=== PATIENT | male | born 1955 | race American Indian/Alaskan Native ===

== ENCOUNTER 2017-03-09 07:03 | Emergency (ER) | payer MEDICAID ==
[2017-03-09 08:05] LABS: Basophils % (Auto) 0.6 % (0.0-1.8); Hematocrit 33.9 % (35.5-45.6); Hemoglobin 11.3 gm/dl (11.8-15.2); Mean Corpuscular HGB Conc 33 % (32-34); Mean Corpuscular Hemoglobin 30 pg (28-32); Mean Corpuscular Volume 89 fl (84-94); Red Blood Count 3.83 M/mm3 (3.65-5.03); Red Cell Distribution Width 18.5 % (13.2-15.2); White Blood Count 4.8 K/mm3 (4.5-11.0)
[2017-03-09 08:08] LABS: Platelet Count 59 K/mm3 (140-440)
[2017-03-09 08:10] LABS: Alanine Aminotransferase 137 units/L (7-56); Albumin 2.2 g/dL (3.9-5); Albumin/Globulin Ratio 0.7 %; Alkaline Phosphatase 266 units/L (35-129); Anion Gap 15 mmol/L; BUN/Creatinine Ratio 20; Blood Urea Nitrogen 12 mg/dL (9-20); Calcium 7.1 mg/dL (8.4-10.2); Carbon Dioxide 21 mmol/L (22-30); Chloride 105.9 mmol/L (98-107); Glucose 102 mg/dL (75-100); Lipase 48 units/L (13-60); Potassium 3.5 mmol/L (3.6-5.0); Sodium 138 mmol/L (137-145); Total Protein 5.4 g/dL (6.3-8.2)
[2017-03-09 09:08] LABS: Bilirubin,Urine SM (Negative); Blood,Urine NEG (Negative); Ketones,Urine NEG (Negative); Leukocyte Esterase,Urine MOD (Negative); Mucus,Urine 3+ /HPF; Nitrite,Urine NEG (Negative); Protein,Urine <15 mg/dL mg/dL (Negative)
--- NOTE | 2017-03-09 11:12 | Emergency Department Report ---
ED General Adult HPI - General Chief complaint: Abdominal Pain Stated complaint: ABD PAIN Time Seen by Provider: 03/09/17 10:52 Source: patient, RN notes reviewed, old records reviewed Mode of arrival: Ambulatory Limitations: No Limitations - History of Present Illness Initial comments: This is a 61-year-old male who was previously unknown to this provider. Patient endorses a past medical history of liver disease, hepatitis C, polysubstance abuse, alcohol abuse. Patient also known to have esophageal varices. Patient seen in the past by gastroenterology, and patient compliance has been questioned.. Patient presents to the ER complaining of abdominal cramping. The abdominal cramping is diffuse. It does not have exacerbating or relieving factors. Patient does admit to recent cocaine and alcohol use, not today, he is not homicidal and suicidal. He complains of erectile dysfunction, and requests medication to help out with this. There is no headache, neck pain, chest pain, shortness of breath, hematemesis or bright red blood per rectum. Patient indicates symptoms have no exacerbating or relieving factors, he is requesting to eat at this time. -: Gradual Location: abdomen Severity scale (0 -10): 9 Consistency: intermittent Improves with: none Worsens with: none Associated Symptoms: loss of appetite, malaise, weakness. denies: confusion, chest pain, cough - Related Data Previous Rx's Medication Instructions Recorded Last Taken Type Lactulose [Cephulac] 20 gm PO QDAY #30 oral.liqd 03/09/17 Unknown Rx Nadolol [Corgard] 20 mg PO QDAY #30 tablet 03/09/17 Unknown Rx Pantoprazole [Protonix TAB] 40 mg PO DAILY #30 tablet 03/09/17 Unknown Rx chlordiazePOXIDE [Librium] 25 mg PO Q8H #10 capsule 03/09/17 Unknown Rx Allergies Allergy/AdvReac Type Severity Reaction Status Date / Time No Known Allergies Allergy Unverified 10/12/13 16:07 ED Review of Systems ROS: Stated complaint: ABD PAIN Other details as noted in HPI Constitutional: malaise Eyes: denies: eye discharge ENT: denies: epistaxis Respiratory: denies: cough Cardiovascular: denies: chest pain Gastrointestinal: abdominal pain Genitourinary: denies: dysuria Musculoskeletal: arthralgia, myalgia Skin: denies: lesions Neurological: weakness Psychiatric: denies: homicidal thoughts, suicidal thoughts ED Past Medical Hx - Past Medical History Hx Hypertension: Yes Hx Congestive Heart Failure: No Hx Diabetes: No Hx Liver Disease: Yes ("i don't know exactly what") Hx HIV: No - Social History Smoking Status: Never Smoker - Medications Home Medications: Home Medications Medication Instructions Recorded Confirmed Last Taken Type Lactulose [Cephulac] 20 gm PO QDAY #30 oral.liqd 03/09/17 Unknown Rx Nadolol [Corgard] 20 mg PO QDAY #30 tablet 03/09/17 Unknown Rx Pantoprazole [Protonix TAB] 40 mg PO DAILY #30 tablet 03/09/17 Unknown Rx chlordiazePOXIDE [Librium] 25 mg PO Q8H #10 capsule 03/09/17 Unknown Rx ED Physical Exam - General Limitations: No Limitations General appearance: alert, in no apparent distress - Head Head exam: Present: atraumatic, normocephalic - Eye Eye exam: Present: normal appearance, EOMI. Absent: nystagmus - ENT ENT exam: Present: normal exam, normal orophraynx, mucous membranes moist, normal external ear exam - Neck Neck exam: Present: normal inspection, full ROM. Absent: tenderness, meningismus - Respiratory Respiratory exam: Present: normal lung sounds bilaterally. Absent: respiratory distress, wheezes, rales, rhonchi, stridor, chest wall tenderness, accessory muscle use, decreased breath sounds, prolonged expiratory - Cardiovascular Cardiovascular Exam: Present: regular rate, normal rhythm, normal heart sounds. Absent: bradycardia, tachycardia, irregular rhythm, systolic murmur, diastolic murmur, rubs, gallop - GI/Abdominal GI/Abdominal exam: Present: soft, normal bowel sounds, other (ascites is appreciated on physical exam. There is a positive fluid wave. There is no tenderness, rebound or guarding.). Absent: distended, tenderness, guarding, rebound, rigid - Rectal Rectal exam: Present: deferred - Extremities Exam Extremities exam: Present: normal inspection, normal capillary refill, pedal edema. Absent: calf tenderness - Back Exam Back exam: Present: normal inspection, full ROM. Absent: tenderness, CVA tenderness (R), CVA tenderness (L), muscle spasm, paraspinal tenderness, vertebral tenderness - Neurological Exam Neurological exam: Present: alert, oriented X3, normal gait, other (Extraocular movements intact. Tongue midline. No facial droop. Facial sensation intact to light touch in the V1, V2, V3 distribution bilaterally. 5 and 5 strength in 4 extremities.. Sensation is intact to light touch in 4 extremities.). Absent : motor sensory deficit - Psychiatric Psychiatric exam: Present: normal affect, normal mood. Absent: homicidal ideation, suicidal ideation - Skin Skin exam: Present: warm, dry, intact, normal color. Absent: rash ED Course Vital Signs 03/09/17 03/09/17 07:27 13:18 Temperature 98.3 F Pulse Rate 62 58 L Respiratory 18 18 Rate Blood Pressure 133/78 Blood Pressure 133/78 143/73 [Left] O2 Sat by Pulse 96 100 Oximetry ED Medical Decision Making - Lab Data Result diagrams: 03/09/17 07:36 03/09/17 07:36 Vital Signs 03/09/17 07:27 Temperature 98.3 F Pulse Rate 62 Respiratory 18 Rate Blood Pressure 133/78 Blood Pressure 133/78 [Left] O2 Sat by Pulse 96 Oximetry Lab Results 03/09/17 03/09/17 03/09/17 Range/Units 07:36 07:36 07:36 WBC 4.8 (4.5-11.0) K/mm3 RBC 3.83 (3.65-5.03) M/mm3 Hgb 11.3 L (11.8-15.2) gm/dl Hct 33.9 L (35.5-45.6) % MCV 89 (84-94) fl MCH 30 (28-32) pg MCHC 33 (32-34) % RDW 18.5 H (13.2-15.2) % Plt Count 59 L (140-440) K/mm3 Lymph % (Auto) 25.7 (13.4-35.0) % Hickman % (Auto) 13.7 H (0.0-7.3) % Eos % (Auto) 13.0 H (0.0-4.3) % Baso % (Auto) 0.6 (0.0-1.8) % Lymph # 1.2 (1.2-5.4) K/mm3 Hickman # 0.7 (0.0-0.8) K/mm3 Eos # 0.6 H (0.0-0.4) K/mm3 Baso # 0.0 (0.0-0.1) K/mm3 Seg Neutrophils % 47.0 (40.0-70.0) % Seg Neutrophils # 2.3 (1.8-7.7) K/mm3 Sodium 138 (137-145) mmol/L Potassium 3.5 L (3.6-5.0) mmol/L Chloride 105.9 (98-107) mmol/L Carbon Dioxide 21 L (22-30) mmol/L Anion Gap 15 mmol/L BUN 12 (9-20) mg/dL Creatinine 0.6 L (0.8-1.5) mg/dL Estimated GFR > 60 ml/min BUN/Creatinine Ratio 20 % Glucose 102 H (75-100) mg/dL Calcium 7.1 L (8.4-10.2) mg/dL Total Bilirubin 4.20 H (0.1-1.2) mg/dL AST 254 H (5-40) units/L ALT 137 H (7-56) units/L Alkaline Phosphatase 266 H (35-129) units/L Total Creatine Kinase 1634 H (55-170) units/L Total Protein 5.4 L (6.3-8.2) g/dL Albumin 2.2 L (3.9-5) g/dL Albumin/Globulin Ratio 0.7 % Lipase 48 (13-60) units/L Urine Color (Yellow) Urine Turbidity (Clear) Urine pH (5.0-7.0) Ur Specific Wat[place] (1.003-1.030) Urine Protein (Negative) mg/dL Urine Glucose (UA) (Negative) mg/dL Urine Ketones (Negative) mg/dL Urine Blood (Negative) Urine Nitrite (Negative) Urine Bilirubin (Negative) Urine Ictotest (Negative) Urine Urobilinogen (<2.0) mg/dL Ur Leukocyte Esterase (Negative) Urine WBC (Auto) (0.0-6.0) /HPF Urine RBC (Auto) (0.0-6.0) /HPF U Epithel Cells (Auto) (0-13.0) /HPF Urine Mucus /HPF 03/09/17 Range/Units 08:51 WBC (4.5-11.0) K/mm3 RBC (3.65-5.03) M/mm3 Hgb (11.8-15.2) gm/dl Hct (35.5-45.6) % MCV (84-94) fl MCH (28-32) pg MCHC (32-34) % RDW (13.2-15.2) % Plt Count (140-440) K/mm3 Lymph % (Auto) (13.4-35.0) % Hickman % (Auto) (0.0-7.3) % Eos % (Auto) (0.0-4.3) % Baso % (Auto) (0.0-1.8) % Lymph # (1.2-5.4) K/mm3 Hickman # (0.0-0.8) K/mm3 Eos # (0.0-0.4) K/mm3 Baso # (0.0-0.1) K/mm3 Seg Neutrophils % (40.0-70.0) % Seg Neutrophils # (1.8-7.7) K/mm3 Sodium (137-145) mmol/L Potassium (3.6-5.0) mmol/L Chloride (98-107) mmol/L Carbon Dioxide (22-30) mmol/L Anion Gap mmol/L BUN (9-20) mg/dL Creatinine (0.8-1.5) mg/dL Estimated GFR ml/min BUN/Creatinine Ratio % Glucose (75-100) mg/dL Calcium (8.4-10.2) mg/dL Total Bilirubin (0.1-1.2) mg/dL AST (5-40) units/L ALT (7-56) units/L Alkaline Phosphatase (35-129) units/L Total Creatine Kinase (55-170) units/L Total Protein (6.3-8.2) g/dL Albumin (3.9-5) g/dL Albumin/Globulin Ratio % Lipase (13-60) units/L Urine Color Patricia (Yellow) Urine Turbidity Clear (Clear) Urine pH 5.0 (5.0-7.0) Ur Specific [place] 1.024 (1.003-1.030) Urine Protein <15 mg/dl (Negative) mg/dL Urine Glucose (UA) Neg (Negative) mg/dL Urine Ketones Neg (Negative) mg/dL Urine Blood Neg (Negative) Urine Nitrite Neg (Negative) Urine Bilirubin Sm (Negative) Urine Ictotest Negative (Negative) Urine Urobilinogen 4.0 (<2.0) mg/dL Ur Leukocyte Esterase Mod (Negative) Urine WBC (Auto) 41.0 H (0.0-6.0) /HPF Urine RBC (Auto) 6.0 (0.0-6.0) /HPF U Epithel Cells (Auto) 1.0 (0-13.0) /HPF Urine Mucus 3+ /HPF - Radiology Data Radiology results: report reviewed, image reviewed Noncontrast CT scan of the abdomen and pelvis demonstrates ascites. Varices also noted. Trace right-sided pleural effusion is noted, the visualized lung bases are well aerated, impression is cirrhosis, splenomegaly, ascites. No acute inflammatory process is identified. - Medical Decision Making Differential diagnosis: Hepatitis, liver disease, cirrhosis Assessment and plan: 61-year-old gentleman, alert and oriented 3, clinically sober, drinking without difficulty, tolerating liquid feeds, known to be noncompliant with therapy, presenting with the expected natural progression and history of cirrhosis and liver disease. He is afebrile, with reassuring vital signs, return studies are chronically abnormal, creatinine kinase is slightly elevated at 1600, however he is drinking oral fluids, he is not vomiting, and his renal function is within normal limits. Therefore, the patient will be able to self hydrate and should be able to manage this on his own. His compartments are soft, he is not actively withdrawing. Patient has chronic disease and needs to follow up with outpatient primary care and gastroenterology. He will be discharged with prescriptions for lactulose, Corgard Protonix, Librium. He is instructed to discontinue tobacco and cocaine and alcohol consumption, and he needs to follow up as an outpatient. He will be discharged at this time, return precautions are reviewed. The patient is chronically ill, but he does not appear to have an acute decompensation in his chronic medical disease, and there is no objective indication to admit the patient to the hospital at this time. Critical care attestation.: If time is entered above; I have spent that time in minutes in the direct care of this critically ill patient, excluding procedure time. ED Disposition Clinical Impression: Elevated LFTs, Peripheral edema, Cirrhosis Disposition: DC-01 TO HOME OR SELFCARE Is pt being admited?: No Does the pt Need Aspirin: No Condition: Stable Instructions: Cirrhosis (ED) Additional Instructions: Take the medications as directed. Discontinue consumption of alcohol, tobacco, marijuana, cocaine. These substances are bad for the patient's health, and long -term use can result in disability, , paralysis, loss of quality of life. Follow-up within the next month without a gastroenterology or primary care. Dr. Ori Morales is a gastroenterology specialist Dr. Eddie Ndiaye is a local primary care doctor. The [facility] is a local medical clinic, and the [facility] is available for mental health needs. Return to the ER by dilute fevers, chills, chest pain, shortness of breath, intractable nausea or vomiting, confusion, inability to tolerate liquid feeds. Prescriptions: chlordiazePOXIDE [Librium] 25 mg PO Q8H #10 capsule Lactulose [Cephulac] 20 gm PO QDAY #30 oral.liqd Nadolol [Corgard] 20 mg PO QDAY #30 tablet Pantoprazole [Protonix TAB] 40 mg PO DAILY #30 tablet Referrals: PRIMARY CARE, [Primary Care Provider] - 3-5 Days ORI MORALES MD [Staff Physician] - 3-5 Days [facility] [Outside] - 3-5 Days ADRIANNE LARES MD [Staff Physician] - 3-5 Days [facility] [Provider Group] - 3-5 Days
[2017-03-09] MEDS ORDERED: BENTYL ONE (11:30)
[2017-03-09] MEDS: CARAFATE PO ONE (11:30)
[2017-03-09] MEDS: BENTYL PO ONE (11:31)
--- NOTE | 2017-03-09 12:02 | Cat Scan Report ---
CT OF THE ABDOMEN AND PELVIS WITHOUT CONTRAST HISTORY: Abdominal pain. TECHNIQUE: Helical CT without contrast. Sagittal and coronal reformatted images. FINDINGS: There are moderate sclerotic changes in the liver. No obvious mass on noncontrast CT. Splenomegaly measures 17 cm. Varicosities are noted the splenic vein. There is small to medium ascites. The biliary system, pancreas, kidneys, adrenal glands and bowel loops are within normal limits. Normal appendix. The bladder is unremarkable. No evidence for bulky adenopathy, abscess or free air. Trace right pleural effusion is identified. The visualized lung bases are well-aerated. Heart size is normal. IMPRESSION: Cirrhosis, splenomegaly and small to medium ascites. Trace right pleural effusion. No acute inflammatory process is appreciated.
[2017-03-09] MEDS: NACL 0.9% 250ML 250 ML IV ONE (12:42)
[2017-03-09 13:19] VITALS: BP 143/73
== END 2017-03-09 13:18 | disposition home or self-care (01) ==
LOC: ED 07:03
DX: K74.60 Unspecified cirrhosis of liver (principal); R60.9 Edema, unspecified; R94.5 Abnormal results of liver function studies; I10 Essential (primary) hypertension
CPT/HCPCS: 36415; 74176; 80053; 81001; 82550; 83690; 85025; 99284; J7050

== ENCOUNTER 2017-03-12 16:41 | Inpatient (IN) | payer OTHER ==
[2017-03-12 18:20] LABS: Hematocrit 35.8 % (35.5-45.6); Hemoglobin 11.7 gm/dl (11.8-15.2); Mean Corpuscular HGB Conc 33 % (32-34); Mean Corpuscular Hemoglobin 30 pg (28-32); Mean Corpuscular Volume 91 fl (84-94); Red Blood Count 3.95 M/mm3 (3.65-5.03); White Blood Count 3.9 K/mm3 (4.5-11.0)
[2017-03-12 18:36] LABS: Anion Gap 15 mmol/L; BUN/Creatinine Ratio 14; Blood Urea Nitrogen 10 mg/dL (9-20); Calcium 7.7 mg/dL (8.4-10.2); Carbon Dioxide 23 mmol/L (22-30); Chloride 107.1 mmol/L (98-107); Glucose 115 mg/dL (75-100); Sodium 141 mmol/L (137-145)
[2017-03-12 18:45] LABS: INR 1.41 (0.87-1.13)
[2017-03-12 18:46] LABS: Partial Thromboplastin Time 31.5 Sec. (24.2-36.6)
[2017-03-12 18:59] LABS: Blastocytes % (Manual) 0 %
--- NOTE | 2017-03-12 19:01 | Cat Scan Report ---
FINAL REPORT PROCEDURE: CT HEAD/BRAIN WO CON TECHNIQUE: Computerized tomography of the head was performed without contrast material. HISTORY: neuro deficits \T\lt; 6hrs or sx present upon awakening COMPARISON: No prior studies are available for comparison. FINDINGS: No CT evidence of intracranial mass, hemorrhage, acute territorial infarction, or hydrocephalus. Chronic lacunar type infarct is seen in the right basal ganglia. Intracranial arteries are symmetric in density. Calvarium is intact. Visualized paranasal sinuses and mastoids are aerated. IMPRESSION: No CT evidence of acute intracranial abnormality
[2017-03-12 19:04] LABS: Anisocytosis 1+; Poikilocytosis 1+
[2017-03-12 19:05] LABS: Diff Status Complete; Hypochromasia 1+; Platelet Estimate Appears Decreased
[2017-03-12 19:07] LABS: Platelet Count 62 K/mm3 (140-440)
--- NOTE | 2017-03-12 19:59 | Emergency Department Report ---
HPI - General Chief Complaint: Dyspnea/Respdistress Time Seen by Provider: 03/12/17 19:08 - HPI HPI: This is a 61-year-old -[place] Citizen male presents to the emergency department from home with complaints of some altered mental status, swelling to the lower extremities and some shortness of breath. The patient himself does appear slightly confused and has a lag between question and answer and is a poor historian. His daughter says that he started having some tremors earlier in the day. She says that he has a glassy eyed look that is not him. Patient does admit to some cocaine use a few days ago. However he also said that he was a tobacco smoker and his daughter says that he is not. He has a past medical history of hypertension and some type of liver disease that the daughter thinks is liver cirrhosis. There is a listing of the patient being on lactulose. ED Past Medical Hx - Past Medical History Previous Medical History?: Yes Hx Hypertension: Yes Hx Congestive Heart Failure: No Hx Diabetes: No Hx Liver Disease: Yes ("i don't know exactly what") Hx HIV: No - Surgical History Past Surgical History?: No - Social History Smoking Status: Never Smoker Substance Use Type: None - Medications Home Medications: Home Medications Medication Instructions Recorded Confirmed Last Taken Type Lactulose [Cephulac] 20 gm PO QDAY #30 oral.liqd 03/09/17 03/12/17 Unknown Rx Nadolol [Corgard] 20 mg PO QDAY #30 tablet 03/09/17 03/12/17 Unknown Rx Pantoprazole [Protonix TAB] 40 mg PO DAILY #30 tablet 03/09/17 03/12/17 Unknown Rx chlordiazePOXIDE [Librium] 25 mg PO Q8H #10 capsule 03/09/17 03/12/17 Unknown Rx ED Review of Systems ROS: Stated complaint: BOTH LEGS AND FOOT SWOLLEN Other details as noted in HPI Comment: Unobtainable due to pts medical conditions Respiratory: shortness of breath Cardiovascular: edema Neurological: confusion Physical Exam - Physical Exam Vital Signs: Vital Signs 03/12/17 03/12/17 03/12/17 17:36 18:31 18:40 Temperature 98.4 F 98.3 F Pulse Rate 63 59 L Respiratory 18 21 21 Rate Blood Pressure 155/85 Blood Pressure 156/74 [Right] O2 Sat by Pulse 96 100 Oximetry Physical Exam: GENERAL: The patient is ill-appearing and slightly confused. HENT: Normocephalic. Atraumatic. Patient has moist mucous membranes. EYES: Extraocular motions are intact. Pupils equal reactive to light bilaterally. NECK: Supple. Trachea is midline. CHEST/LUNGS: Clear to auscultation. There is no respiratory distress noted. HEART/CARDIOVASCULAR: Regular. There is no tachycardia. There is no gallop rub or murmur. ABDOMEN: Abdomen is soft, nontender. Patient has normal bowel sounds. There is no abdominal distention. SKIN: Skin is warm and dry. NEURO: The patient is awake but slightly confused. AAO [address] but not time. He does know the president. Follows most commands. There is a significant lag between question and answer. He has some bilateral upper extremity tremor with intention. MUSCULOSKELETAL: There is no tenderness or deformity. There is no evidence of acute injury. ED Course Vital Signs 03/12/17 03/12/17 03/12/17 17:36 18:31 18:40 Temperature 98.4 F 98.3 F Pulse Rate 63 59 L Respiratory 18 21 21 Rate Blood Pressure 155/85 Blood Pressure 156/74 [Right] O2 Sat by Pulse 96 100 Oximetry ED Medical Decision Making - Lab Data Result diagrams: 03/12/17 18:02 03/12/17 18:02 - EKG Data -: EKG Interpreted by Me EKG shows normal: sinus rhythm, axis, intervals, QRS complexes, ST-T waves Rate: normal - EKG Data When compared to previous EKG there are: previous EKG unavailable Interpretation: normal EKG - Radiology Data Radiology results: report reviewed, image reviewed interpreted by me: Chest x-ray does not show any acute process. There are no pleural effusions, obvious pneumonia and there is no pneumothorax. PROCEDURE: CT HEAD/BRAIN WO CON TECHNIQUE: Computerized tomography of the head was performed without contrast material. HISTORY: neuro deficits T lt; 6hrs or sx present upon awakening COMPARISON: No prior studies are available for comparison. FINDINGS: No CT evidence of intracranial mass, hemorrhage, acute territorial infarction, or hydrocephalus. Chronic lacunar type infarct is seen in the right basal ganglia. Intracranial arteries are symmetric in density. Calvarium is intact. Visualized paranasal sinuses and mastoids are aerated. IMPRESSION: No CT evidence of acute intracranial abnormality Transcribed By: [facility] Dictated By: JOANNA RAY M.D. Electronically Authenticated By: JOANNA RAY M.D. Signed Date/Time: 03/12/17 7760 - Medical Decision Making 61-year-old male presents with his daughter with a complaint of some altered mental status, a tremor, appearing confused. He has a history of liver cirrhosis and is on lactulose so a ammonia level was checked and came back at 144. All this appears consistent with hepatic encephalopathy. CT did not show any acute intracranial abnormalities. Vital signs stable throughout his ED course. We started him on lactulose which she will need multiple times and possibly in larger doses. He has been accepted for admission by the hospitalist , Dr. Hernández. - Differential Diagnosis hepatic encephalopathy, TIA, CVA, dementia Critical Care Time: No Critical care attestation.: If time is entered above; I have spent that time in minutes in the direct care of this critically ill patient, excluding procedure time. ED Disposition Clinical Impression: Hepatic encephalopathy, Hyperammonemia Altered mental status Qualifiers: Altered mental status type: unspecified Qualified Code(s): R41.82 - Altered mental status, unspecified Disposition: DC-09 OP ADMIT IP TO THIS HOSP Is pt being admited?: Yes Condition: Fair Referrals: PRIMARY CARE, [Primary Care Provider] - 3-5 Days Time of Disposition: 22:11
[2017-03-12] MEDS ORDERED: CEPHULAC PO ONE (21:13)
[2017-03-12] MEDS ORDERED: ZOFRAN IV PRN (22:43)
[2017-03-12] MEDS ORDERED: CEPHULAC ONE (23:20)
[2017-03-13] MEDS: LIBRIUM PO SCH ×3 (00:03→16:47)
[2017-03-13 05:12] LABS: Hematocrit 30.6 % (35.5-45.6); Hemoglobin 10.5 gm/dl (11.8-15.2); Mean Corpuscular HGB Conc 35 % (32-34); Mean Corpuscular Hemoglobin 31 pg (28-32); Mean Corpuscular Volume 89 fl (84-94); Red Blood Count 3.45 M/mm3 (3.65-5.03); Red Cell Distribution Width 19.8 % (13.2-15.2)
[2017-03-13 05:17] LABS: Platelet Count 49 K/mm3 (140-440)
[2017-03-13 05:37] LABS: Albumin 1.8 g/dL (3.9-5); Albumin/Globulin Ratio 0.6 %; Bilirubin,Direct 3.1 mg/dL (0-0.2); Bilirubin,Indirect 1.9 mg/dL; Total Protein 4.6 g/dL (6.3-8.2)
--- NOTE | 2017-03-13 07:59 | XRay Report ---
AP CHEST: HISTORY: Shortness of breath No comparison. Mild pulmonary venous congestion is suspected. The lungs are clear. No pleural effusion or pneumothorax. Heart size is at the upper limits of normal. The bony structures are intact. IMPRESSION: Mild pulmonary venous congestion.
[2017-03-13] MEDS: CEPHULAC PO SCH ×4 (08:30→23:09)
[2017-03-13] MEDS: CORGARD PO SCH (09:46)
[2017-03-13] MEDS: LASIX IV SCH (09:46)
[2017-03-13] MEDS: PROTONIX PO SCH (09:47)
[2017-03-13] MEDS ORDERED: HEPARIN SUB-Q SCH (10:00)
--- NOTE | 2017-03-13 10:18 | History and Physical Report ---
CHIEF COMPLAINT: Change in mental status. Other complaints include generalized swelling of the body. HISTORY OF PRESENT ILLNESS: The patient is a 61-year-old male, who was thought to have some form of liver disease presenting with change in mental status. Family member stated that the patient has been in and out of [facility] and presented with this change in mental status that started within the last 24-48 hours. The patient is a poor historian. Also, the patient was noted to be having ____ yesterday. The patient admitted to drinking alcohol regularly and has thoughts of using cocaine. The patient denies history of chest pain but has a history of difficulty breathing, no history of fever or chills. No history of cough. No history of vomiting. PAST MEDICAL HISTORY: Pertinent for hypertension, liver disease that is ____ PAST SURGICAL HISTORY: Unremarkable. FAMILY HISTORY: Noncontributory. SOCIAL HISTORY: The patient drinks alcohol, uses illicit drugs, but does not smoke cigarettes. MEDICATIONS: The patient is on lactulose 20 grams daily, nadolol (Corgard) 20 mg by mouth daily, pantoprazole (Protonix) 40 mg by mouth daily, Librium (chlordiazepoxide) 25 mg by mouth every 8 hours. ALLERGIES: There are no known drug allergies. REVIEW OF SYSTEMS: CONSTITUTIONAL: There is no fever, no chills, no diaphoresis. HEENT: There is no headache or sore throat. CARDIOVASCULAR: There is no chest pain or orthopnea. RESPIRATORY SYSTEM: There is shortness of breath, but no cough. GASTROINTESTINAL SYSTEM: There is no nausea, no vomiting and no abdominal pain, diarrhea or constipation. NEUROLOGICAL SYSTEM: Change in mental status noted, with no dizziness. MUSCULOSKELETAL: Generalized swelling of the body noted including the joint with ____ joint pain. DERMATOLOGICAL SYSTEM: There is no skin rash or itching. GENITOURINARY SYSTEM: There is no dysuria, hematuria, or flank pain. Rest of system review is normal. PHYSICAL EXAMINATION: GENERAL: At the time of exam, the patient was found to be alert and oriented to person, place and not in acute distress. VITAL SIGNS: Shows temperature of 95.5 degrees Fahrenheit, pulse rate of 56, respirations 18, blood pressure 131/83, and O2 sat of 100% on room air. HEENT: Showed pupils to be equal, round, reactive to light and accommodation. Extraocular muscles are intact. NECK: Supple with no JVD or carotid bruit. CARDIOVASCULAR: Showed normal first and second heart sounds with no gallops or murmur. RESPIRATORY: Show good air entry on both sides of the lung with no abnormal breath sounds. GASTROINTESTINAL SYSTEM: Show abdomen to be full, soft, nontender with no organomegaly or rigidity. NEUROLOGICAL: Shows the patient to be lethargic, but able to communicate with no focal deficit elicited. MUSCULOSKELETAL: Showed generalized swelling of the upper and lower limbs, more in the lower limbs than upper limbs, there is no joint tenderness. DERMATOLOGICAL SYSTEM: Show no skin rash. GENITOURINARY: Show no costovertebral angle tenderness. PERTINENT LABORATORY DATA AND IMAGING STUDIES: The patient had a CT of the head done that shows no evidence of intracranial abnormality. The patient also had chest x-ray done that shows no acute cardiopulmonary lesion. Lab results show CBC with slightly low WBC of 3.9 and a slightly low hemoglobin of 11.7, normal hematocrit and low platelet count of 62,000. CBC differential showed elevated monocyte count of 11% and elevated eosinophil count of 12%. Also, the patient's coagulation study shows slight increase in INR of 1.4 with elevated PT of 18. Chemistry shows high chloride of 107 with normal sodium and normal potassium and elevated glucose level of 126. The patient's ammonia levels showed initial high value of 142. Repeat ammonia levels shows even higher level of 274. Troponin level was less than 0.010. The patient's brain natriuretic peptide came back with a normal value of 163.7. TSH level was unremarkable. Plasma alcohol level was unremarkable. DIAGNOSES: 1. Hepatic encephalopathy. 2. Elevated ammonia level. 3. Thrombocytopenia. PLAN: The patient will be admitted to medical floor on telemetry and will have complete echo done this morning because of generalized swelling including peripheral edema. The patient will be on IV Lasix 40 mg daily. DVT prophylaxis will be with sequential compressive device. The patient will have GI consult with Dr. Myron Rivas of the [facility] because of the elevated ammonia level with suspicious liver disease or liver cirrhosis. The patient will have liver function test done this month and will be on lactulose 20 grams 3 times daily. The patient will also be on IV Zofran 4 mg every 8 hours for nausea and vomiting, and Protonix 40 mg by mouth daily. The patient will be on oxygen by nasal cannula 2 liters per minute. The patient will have CBC done this morning and will have his home medication reconciled on Friday. JOB# [id number] OCN/NTS
--- NOTE | 2017-03-13 12:36 | Gastroenterology Consultation ---
History of Present Illness - Reason for Consult Consult date: 03/13/17 AMS, cirrhosis Requesting physician: SY RAYO - History of Present Illness Mr Howard is a 61 yo AAM who presented to the ED with LE edema, sob, and changes in mental status. History primarily gathered from chart review. Patient somnolent on exam; arousable, but unable to provide meaningful history at time of exam. He does admit to drinking alcohol, but unable to get specifics on amount/type of alcohol consumption. He is not aware of any known h /o liver disease/cirrhosis. + cocaine use days prior to admission. No reported GI bleeding. Of note, pt was admitted in 2013 with AMS. GI was consulted at that time, diagnosed with hep c and suspected cirrhosis. However, he has not followed-up since that time. Past History Past Medical History: hypertension, liver disease, other (hep c) Past Surgical History: No surgical history Social history: alcohol abuse, other (+ cocaine) Family history: other (unable to obtain) Medications and Allergies Allergies Allergy/AdvReac Type Severity Reaction Status Date / Time No Known Allergies Allergy Unverified 10/12/13 16:07 Home Medications Medication Instructions Recorded Confirmed Last Taken Type Lactulose [Cephulac] 20 gm PO QDAY #30 oral.liqd 03/09/17 03/12/17 Unknown Rx Nadolol [Corgard] 20 mg PO QDAY #30 tablet 03/09/17 03/12/17 Unknown Rx Pantoprazole [Protonix TAB] 40 mg PO DAILY #30 tablet 03/09/17 03/12/17 Unknown Rx chlordiazePOXIDE [Librium] 25 mg PO Q8H #10 capsule 03/09/17 03/12/17 Unknown Rx Active Meds: Active Medications Chlordiazepoxide HCl (Librium) 25 mg PO Q8H [facility] Last Admin: 03/13/17 08:30 Dose: 25 mg Furosemide (Lasix) 40 mg IV DAILY [facility] Last Admin: 03/13/17 09:46 Dose: Not Given Lactulose (Cephulac) 20 gm PO TID [facility] Last Admin: 03/13/17 08:30 Dose: 20 gm Nadolol (Corgard) 20 mg PO QDAY [facility] Last Admin: 03/13/17 09:46 Dose: Not Given Ondansetron HCl (Zofran) 4 mg IV Q8H PRN PRN Reason: Nausea And Vomiting Pantoprazole Sodium (Protonix) 40 mg PO DAILY [facility] Last Admin: 03/13/17 09:47 Dose: 40 mg Review of Systems - Review of Systems ROS unobtainable: due to mental status Exam - Exam Narrative Exam: Gen: NAD, somnolent/arousable but confused Head: nc/at Mouth: dry mucous membranes, no oral lesions Eyes: + icterus/muddy sclera Neck: no LAD, supple CV: RRR Lungs: CTAB, non labored Abd: soft, nd, +bs Ext: + edema Neuro: oriented to self - Constitutional Vital Signs: Temp Pulse Resp BP Pulse Ox 97.5 F L 60 18 105/49 95 03/13/17 00:21 03/13/17 05:20 03/13/17 05:20 03/13/17 05:20 03/13/17 05:20 - Labs CBC & Chem 7: 03/13/17 04:59 03/12/17 18:02 Lab Results: Laboratory Results - last 24 hr 03/13/17 03/13/17 03/13/17 04:59 04:59 04:59 WBC 3.0 L RBC 3.45 L Hgb 10.5 L Hct 30.6 L MCV 89 MCH 31 MCHC 35 H RDW 19.8 H Plt Count 49 L Total Bilirubin 5.00 H Direct Bilirubin 3.1 H Indirect Bilirubin 1.9 AST 141 H ALT 95 H Alkaline Phosphatase 218 H Ammonia 274.0 H Total Protein 4.6 L Albumin 1.8 L Albumin/Globulin Ratio 0.6 - Imaging CT Scan: report reviewed Assessment and Plan 1. Decompensated cirrhosis 2. Hepatic encephalopathy 3. Ascites 4. Alcohol abuse 5. hepatitis c -increase scheduled lactulose dosing with goal of 3 bm's daily -start xifaxin -r/o infection per primary, obtain diagnostic tap to r/o SBP -monitor/tx for alcohol withdrawal -avoid sedating medications
--- NOTE | 2017-03-13 18:22 | Progress Note ---
Assessment and Plan - Patient Problems (1) Hepatic encephalopathy Current Visit: Yes Status: Acute Plan to address problem: Ammonia level going up Xifaxan added GI consult appreciated Cont Lactulose Recheck Ammonia level (2) Hyperammonemia Current Visit: Yes Status: Acute Plan to address problem: On Xifaxan and Lactulose (3) Elevated LFTs Current Visit: No Status: Acute Plan to address problem: Sec to ETOH Hepatitis profile ordered (4) Severe malnutrition Current Visit: Yes Status: Acute Plan to address problem: Dietitian consult requested (5) EtOH dependence Current Visit: Yes Status: Chronic Qualifiers: Substance use status: uncomplicated Complication of substance-induced condition: C Qualified Code(s): F10.20 - Alcohol dependence, uncomplicated Plan to address problem: CIWA protocol if necessary (6) DVT prophylaxis Current Visit: Yes Status: Acute Plan to address problem: SCD's Subjective Date of service: 03/13/17 Principal diagnosis: Hep Encephalopathy Interval history: Lethargic Arousable Objective - Constitutional Vitals: Vital Signs - 12hr 03/13/17 11:00 Pulse Rate 60 General appearance: Present: no acute distress, well-nourished - EENT Eyes: PERRL, EOM intact ENT: hearing intact, clear oral mucosa Ears: bilateral: normal - Neck Neck: supple, normal ROM - Respiratory Respiratory effort: normal Respiratory: bilateral: CTA - Breasts Breasts: normal - Cardiovascular Heart rate: 80 Rhythm: regular Heart Sounds: Present: S1 & S2. Absent: gallop, rub Extremities: pulses intact, No edema, normal color, Full ROM - Gastrointestinal General gastrointestinal: Present: soft, non-tender, non-distended, normal bowel sounds Rectal Exam: deferred - Genitourinary Male genitourinary: normal - Integumentary Integumentary: clear, warm, dry - Musculoskeletal Musculoskeletal: strength equal bilaterally, generalized weakness - Neurologic Neurologic: moves all extremities - Psychiatric Psychiatric: depressed, other (Alert but notyt oriented,Lethargic) - Allied health notes Allied health notes reviewed: nursing, case management - Labs CBC & Chem 7: 03/13/17 04:59 03/12/17 18:02 Labs: Abnormal lab results 03/13/17 03/13/17 03/13/17 Range/Units 04:59 04:59 04:59 WBC 3.0 L (4.5-11.0) K/mm3 RBC 3.45 L (3.65-5.03) M/mm3 Hgb 10.5 L (11.8-15.2) gm/dl Hct 30.6 L (35.5-45.6) % MCHC 35 H (32-34) % RDW 19.8 H (13.2-15.2) % Plt Count 49 L (140-440) K/mm3 Total Bilirubin 5.00 H (0.1-1.2) mg/dL Direct Bilirubin 3.1 H (0-0.2) mg/dL AST 141 H (5-40) units/L ALT 95 H (7-56) units/L Alkaline Phosphatase 218 H (35-129) units/L Ammonia 274.0 H (25-60) umol/L Total Protein 4.6 L (6.3-8.2) g/dL Albumin 1.8 L (3.9-5) g/dL
[2017-03-13] MEDS: XIFAXAN PO SCH (23:09)
[2017-03-14] MEDS: LIBRIUM PO SCH ×3 (04:44→17:36)
[2017-03-14] MEDS: CEPHULAC PO SCH ×4 (06:41→23:38)
[2017-03-14 09:29] LABS: Alanine Aminotransferase 85 units/L (7-56); Albumin 1.8 g/dL (3.9-5); Albumin/Globulin Ratio 0.6 %; Alkaline Phosphatase 198 units/L (35-129); Anion Gap 14 mmol/L; BUN/Creatinine Ratio 22; Blood Urea Nitrogen 13 mg/dL (9-20); Calcium 7.3 mg/dL (8.4-10.2); Carbon Dioxide 23 mmol/L (22-30); Chloride 109.3 mmol/L (98-107); Glucose 99 mg/dL (75-100); Potassium 3.8 mmol/L (3.6-5.0); Sodium 142 mmol/L (137-145); Total Protein 4.7 g/dL (6.3-8.2)
[2017-03-14] MEDS: PROTONIX PO SCH (10:01)
[2017-03-14] MEDS: XIFAXAN PO SCH ×2 (10:01→23:38)
[2017-03-14] MEDS: CORGARD PO SCH (10:02)
[2017-03-14] MEDS: LASIX IV SCH (10:02)
--- NOTE | 2017-03-14 10:30 | Gastroenterology Progress Note ---
<HILTON DELA CRUZ - Last Filed: 03/14/17 10:28> Assessment and Plan 1. Decompensated cirrhosis 2. Hepatic encephalopathy 3. Ascites 4. Alcohol abuse 5. hepatitis c -increase scheduled lactulose dosing with goal of 3 bm's daily -started on Xifaxan. Ammonia level decreased to 89. -r/o infection per primary, obtain diagnostic tap to r/o SBP>>>pending for today with fluid studies. -monitor/tx for alcohol withdrawal -avoid sedating medications -Currently on Lasix 40 mg daily. Significant lower ext edema, Will defer to primary for increasing diuretics vs addition of aldactone. Subjective Date of service: 03/21/17 Principal diagnosis: Hep Encephalopathy Interval history: Family at bedside. Patient is awake with limited conversation. Objective - Constitutional Vitals: Temp Pulse Resp BP Pulse Ox 98.3 F 62 18 134/70 99 03/14/17 05:18 03/14/17 05:18 03/14/17 05:18 03/14/17 05:18 03/14/17 05:18 General appearance: no acute distress - EENT ENT: hearing intact - Respiratory Respiratory: bilateral: diminished - Cardiovascular Rhythm: regular Heart Sounds: Present: S1 & S2 - Extremities Extremity abnormal: edema - Gastrointestinal General gastrointestinal: Present: soft, non-tender, normal bowel sounds - Labs CBC & Chem 7: 03/13/17 04:59 03/14/17 08:50 Labs: Laboratory Results - last 24 hr 03/14/17 03/14/17 03/14/17 08:50 08:50 08:50 Sodium 142 Potassium 3.8 Chloride 109.3 H Carbon Dioxide 23 Anion Gap 14 BUN 13 Creatinine 0.6 L Estimated GFR > 60 BUN/Creatinine Ratio 22 Glucose 99 Calcium 7.3 L Magnesium 1.70 Total Bilirubin 4.40 H AST 131 H ALT 85 H Alkaline Phosphatase 198 H Ammonia 89.0 H Total Protein 4.7 L Albumin 1.8 L Albumin/Globulin Ratio 0.6 <FRANKIE CHAPA - Last Filed: 03/14/17 16:36> Assessment and Plan Patient seen and examined. Agree with note by Yohana Dela Cruz. Mentation improved, but still confused and not back to baseline (daughter at bedside). Only 1 bm last night, none since. increase lactulose scheduled dosing. rest as above. Objective - Constitutional Vitals: Temp Pulse Resp BP Pulse Ox 98.3 F 63 18 134/70 98 03/14/17 05:18 03/14/17 10:18 03/14/17 05:18 03/14/17 05:18 03/14/17 13:06 - Labs CBC & Chem 7: 03/13/17 04:59 03/14/17 08:50 Labs: Laboratory Results - last 24 hr 03/14/17 03/14/17 03/14/17 08:50 08:50 08:50 Sodium 142 Potassium 3.8 Chloride 109.3 H Carbon Dioxide 23 Anion Gap 14 BUN 13 Creatinine 0.6 L Estimated GFR > 60 BUN/Creatinine Ratio 22 Glucose 99 Calcium 7.3 L Magnesium Total Bilirubin 4.40 H AST 131 H ALT 85 H Alkaline Phosphatase 198 H Ammonia 89.0 H Total Protein 4.7 L Albumin 1.8 L Albumin/Globulin Ratio 0.6 Hepatitis A IgM Ab Non-reactive Hep Bs Antigen Non-reactive Hep B Core IgM Ab Non-reactive Hepatitis C Antibody Reactive A 03/14/17 08:50 Sodium Potassium Chloride Carbon Dioxide Anion Gap BUN Creatinine Estimated GFR BUN/Creatinine Ratio Glucose Calcium Magnesium 1.70 Total Bilirubin AST ALT Alkaline Phosphatase Ammonia Total Protein Albumin Albumin/Globulin Ratio Hepatitis A IgM Ab Hep Bs Antigen Hep B Core IgM Ab Hepatitis C Antibody
--- NOTE | 2017-03-14 14:36 | Ultrasound Report ---
ULTRASOUND ABDOMEN LIMITED/ASCITES SCAN INDICATION: Diagnostic tap. Evaluate for SBP. COMPARISON: 03/09/2017 CT. FINDINGS: Sonographic imaging of all 4 abdominal quadrants demonstrates no significant ascites that may be amenable for safe paracentesis. CONCLUSION: No significant ascites identified, as described. Thank you for the opportunity to participate in this patient's care.
[2017-03-14] MEDS: ALDACTONE PO SCH (17:35)
--- NOTE | 2017-03-14 20:13 | Progress Note ---
Assessment and Plan Assessment and plan: 1. Decompensated cirrhosis Secondary to hepatitis C and alcohol abuse Plan for diagnostic/therapeutic paracentesis; adjust diuretic regimen; beta elizabeth; lactulose 2. Hepatic encephalopathy On lactulose and rifaximin Trend ammonia level - started to come down, 89 today 3. Ascites/anasarca Obtain US and paracentesis ECHO revealed preserved EF, so peripheral edema/anasarca secondary to hyperalbuminemia Started on Lasix; add spironolactone 4. Chronic hepatitis C 5. Alcohol abuse [facility] protocol Banana bag 6. Recent history of cocaine use Counseled, but questionable comprehension; discussed with daughter 7. Pancytopenia Due to decompensated cirrhosis/alcoholic and drug use Monitor closely Consider transfusion if necessary 8. Coagulopathy Due to decompensated cirrhosis Monitor INR Treat if needed 9. Jaundice/elevated LFTs Due to decompensated cirrhosis and continued alcohol use 10. Severe protein caloric malnutrition Due to nutritional deficiencies (in and out of [facility]), alcohol and drug use Dietitian consulted for supplementation 11. DVT prophylaxis SCDs. No pharmacological agent given pancytopenia/coagulopathy 12. Dispo Daughter would like placement; if not possible, home health and she will need to make arrangements to take patient at her home; patient released from [facility] 2[facility] 3 weeks ago, since then leaving with his brother who brings him alcohol and drugs History Interval history: Mental status improved, able to answer simple questions; no specific complaints Long discussion with daughter about all his comorbidities, current findings, treatment plan Hospitalist Physical - Constitutional Vitals: Temp Pulse Resp BP Pulse Ox 98.3 F 64 18 134/70 99 03/14/17 05:18 03/14/17 17:46 03/14/17 05:18 03/14/17 05:18 03/14/17 17:46 General appearance: Present: no acute distress - EENT Eyes: Present: PERRL, EOM intact. Absent: scleral icterus, conjunctival injection ENT: hearing intact, clear oral mucosa, poor dentition, no oropharyngeal erythema - Neck Neck: Present: supple, normal ROM. Absent: masses or JVD - Respiratory Respiratory effort: normal Respiratory: bilateral: CTA, negative: rhonchi, wheezing - Cardiovascular Rhythm: regular Heart Sounds: Present: S1 & S2. Absent: systolic murmur - Extremities Extremities: no ischemia Extremity abnormal: edema - Abdominal General gastrointestinal: soft, non-tender, non-distended, normal bowel sounds - Neurologic Neurologic: moves all extremities Results - Labs CBC & Chem 7: 03/13/17 04:59 03/14/17 08:50 Labs: Laboratory Last Values WBC 3.0 K/mm3 (4.5-11.0) L 03/13/17 04:59 RBC 3.45 M/mm3 (3.65-5.03) L 03/13/17 04:59 Hgb 10.5 gm/dl (11.8-15.2) L 03/13/17 04:59 Hct 30.6 % (35.5-45.6) L 03/13/17 04:59 MCV 89 fl (84-94) 03/13/17 04:59 MCH 31 pg (28-32) 03/13/17 04:59 MCHC 35 % (32-34) H 03/13/17 04:59 RDW 19.8 % (13.2-15.2) H 03/13/17 04:59 Plt Count 49 K/mm3 (140-440) L 03/13/17 04:59 Douglas % (Auto) Senior Interactive Producer 03/12/17 18:02 Add Manual Diff Complete 03/12/17 18:02 Total Counted 100 03/12/17 18:02 Seg Neuts % (Manual) 49.0 % (40.0-70.0) 03/12/17 18:02 Band Neutrophils % 0 % 03/12/17 18:02 Lymphocytes % (Manual) 27.0 % (13.4-35.0) 03/12/17 18:02 Reactive Lymphs % (Man) 0 % 03/12/17 18:02 Monocytes % (Manual) 11.0 % (0.0-7.3) H 03/12/17 18:02 Eosinophils % (Manual) 12.0 % (0.0-4.3) H 03/12/17 18:02 Basophils % (Manual) 1.0 % (0.0-1.8) 03/12/17 18:02 Metamyelocytes % 0 % 03/12/17 18:02 Myelocytes % 0 % 03/12/17 18:02 Promyelocytes % 0 % 03/12/17 18:02 Blast Cells % 0 % 03/12/17 18:02 Nucleated RBC % Not Reportable 03/12/17 18:02 Seg Neutrophils # Man 1.9 K/mm3 (1.8-7.7) 03/12/17 18:02 Band Neutrophils # 0.0 K/mm3 03/12/17 18:02 Lymphocytes # (Manual) 1.1 K/mm3 (1.2-5.4) L 03/12/17 18:02 Abs React Lymphs (Man) 0.0 K/mm3 03/12/17 18:02 Monocytes # (Manual) 0.4 K/mm3 (0.0-0.8) 03/12/17 18:02 Eosinophils # (Manual) 0.5 K/mm3 (0.0-0.4) H 03/12/17 18:02 Basophils # (Manual) 0.0 K/mm3 (0.0-0.1) 03/12/17 18:02 Metamyelocytes # 0.0 K/mm3 03/12/17 18:02 Myelocytes # 0.0 K/mm3 03/12/17 18:02 Promyelocytes # 0.0 K/mm3 03/12/17 18:02 Blast Cells # 0.0 K/mm3 03/12/17 18:02 WBC Morphology Not Reportable 03/12/17 18:02 Hypersegmented Neuts Not Reportable 03/12/17 18:02 Hyposegmented Neuts Not Reportable 03/12/17 18:02 Hypogranular Neuts Not Reportable 03/12/17 18:02 Smudge Cells Not Reportable 03/12/17 18:02 Toxic Granulation Not Reportable 03/12/17 18:02 Toxic Vacuolation Not Reportable 03/12/17 18:02 Dohle Bodies Not Reportable 03/12/17 18:02 Pelger-Huet Anomaly Not Reportable 03/12/17 18:02 Joe Rods Not Reportable 03/12/17 18:02 Platelet Estimate Appears decreased 03/12/17 18:02 Clumped Platelets Not Reportable 03/12/17 18:02 Plt Clumps, EDTA Not Reportable 03/12/17 18:02 Large Platelets Not Reportable 03/12/17 18:02 Giant Platelets Not Reportable 03/12/17 18:02 Platelet Satelliting Not Reportable 03/12/17 18:02 Plt Morphology Comment Not Reportable 03/12/17 18:02 RBC Morphology Not Reportable 03/12/17 18:02 Dimorphic RBCs Not Reportable 03/12/17 18:02 Polychromasia Not Reportable 03/12/17 18:02 Hypochromasia 1+ 03/12/17 18:02 Poikilocytosis 1+ 03/12/17 18:02 Anisocytosis 1+ 03/12/17 18:02 Microcytosis Not Reportable 03/12/17 18:02 Macrocytosis Not Reportable 03/12/17 18:02 Spherocytes Not Reportable 03/12/17 18:02 Pappenheimer Bodies Not Reportable 03/12/17 18:02 Sickle Cells Not Reportable 03/12/17 18:02 Target Cells Not Reportable 03/12/17 18:02 Tear Drop Cells Not Reportable 03/12/17 18:02 Ovalocytes Not Reportable 03/12/17 18:02 Helmet Cells Not Reportable 03/12/17 18:02 Car[place]quillo-[place] Bodies Not Reportable 03/12/17 18:02 Banks Rings Not Reportable 03/12/17 18:02 Oliver Cells Not Reportable 03/12/17 18:02 Bite Cells Not Reportable 03/12/17 18:02 Crenated Cell Not Reportable 03/12/17 18:02 Elliptocytes Not Reportable 03/12/17 18:02 Acanthocytes (Spur) Not Reportable 03/12/17 18:02 Rouleaux Not Reportable 03/12/17 18:02 Hemoglobin C Crystals Not Reportable 03/12/17 18:02 Schistocytes Not Reportable 03/12/17 18:02 Malaria parasites Not Reportable 03/12/17 18:02 Alex Bodies Not Reportable 03/12/17 18:02 Hem Pathologist Commnt No 03/12/17 18:02 PT 18.0 Sec. (12.2-14.9) H 03/12/17 18:25 INR 1.41 (0.87-1.13) H 03/12/17 18:25 APTT 31.5 Sec. (24.2-36.6) 03/12/17 18:25 Thrombin Time 18.7 Sec. (15.1-19.6) 03/12/17 18:25 Sodium 142 mmol/L (137-145) 03/14/17 08:50 Potassium 3.8 mmol/L (3.6-5.0) 03/14/17 08:50 Chloride 109.3 mmol/L (98-107) H 03/14/17 08:50 Carbon Dioxide 23 mmol/L (22-30) 03/14/17 08:50 Anion Gap 14 mmol/L 03/14/17 08:50 BUN 13 mg/dL (9-20) 03/14/17 08:50 Creatinine 0.6 mg/dL (0.8-1.5) L 03/14/17 08:50 Estimated GFR > 60 ml/min 03/14/17 08:50 BUN/Creatinine Ratio 22 % 03/14/17 08:50 Glucose 99 mg/dL (75-100) 03/14/17 08:50 POC Glucose 126 (70-105) H 03/12/17 18:41 Calcium 7.3 mg/dL (8.4-10.2) L 03/14/17 08:50 Magnesium 1.70 mg/dL (1.7-2.3) 03/14/17 08:50 Total Bilirubin 4.40 mg/dL (0.1-1.2) H 03/14/17 08:50 Direct Bilirubin 3.1 mg/dL (0-0.2) H 03/13/17 04:59 Indirect Bilirubin 1.9 mg/dL 03/13/17 04:59 AST 131 units/L (5-40) H 03/14/17 08:50 ALT 85 units/L (7-56) H 03/14/17 08:50 Alkaline Phosphatase 198 units/L (35-129) H 03/14/17 08:50 Ammonia 89.0 umol/L (25-60) H 03/14/17 08:50 Troponin T < 0.010 ng/mL (0.00-0.029) 03/12/17 18:02 NT-Pro-B Natriuret Pep 163.7 pg/mL (0-900) 03/12/17 18:02 Total Protein 4.7 g/dL (6.3-8.2) L 03/14/17 08:50 Albumin 1.8 g/dL (3.9-5) L 03/14/17 08:50 Albumin/Globulin Ratio 0.6 % 03/14/17 08:50 TSH 3.260 mlU/mL (0.270-4.200) 03/12/17 20:10 Plasma/Serum Alcohol < 0.01 gm% (0-0.07) 03/12/17 20:10 Hepatitis A IgM Ab Non-reactive (NonReactive) 03/14/17 08:50 Hep Bs Antigen Non-reactive (Negative) 03/14/17 08:50 Hep B Core IgM Ab Non-reactive (NonReactive) 03/14/17 08:50 Hepatitis C Antibody Reactive (NonReactive) A 03/14/17 08:50 - Imaging and Cardiology Chest x-ray: image reviewed Abdominal x-ray: image reviewed Imaging and Cardiology: ECHO
[2017-03-15] MEDS: LIBRIUM PO SCH ×4 (01:11→23:46)
[2017-03-15] MEDS: CEPHULAC PO SCH ×4 (06:01→23:46)
[2017-03-15] MEDS: PROTONIX PO SCH (10:00)
[2017-03-15] MEDS: CORGARD PO SCH (10:01)
[2017-03-15] MEDS: XIFAXAN PO SCH ×2 (10:02→22:43)
[2017-03-15] MEDS: LASIX IV SCH (10:04)
[2017-03-15] MEDS: ALDACTONE PO SCH (10:15)
--- NOTE | 2017-03-15 18:49 | Gastroenterology Progress Note ---
Assessment and Plan GI: cirrhosis with encephalopathy now improving - continue Lactulose and Xifaxan bid , follow labs - low protein diet - fi stable am ok to d/c from GI standpoint Subjective Date of service: 03/15/17 Principal diagnosis: Hep Encephalopathy Interval history: - pt more alert today, denies other GI symptoms Objective - Constitutional Vitals: Temp Pulse Resp BP Pulse Ox 98.3 F 65 16 122/69 98 03/15/17 09:00 03/15/17 17:09 03/15/17 04:37 03/15/17 18:00 03/15/17 17:09 General appearance: no acute distress - Respiratory Respiratory: bilateral: CTA - Cardiovascular Rhythm: regular Heart Sounds: Present: S1 & S2 - Gastrointestinal General gastrointestinal: Present: soft, non-tender - Labs CBC & Chem 7: 03/13/17 04:59 03/14/17 08:50
--- NOTE | 2017-03-15 21:28 | Progress Note ---
Assessment and Plan Assessment and plan: 1. Decompensated cirrhosis Secondary to hepatitis C and alcohol abuse Continue diuretics, beta elizabeth, lactulose 2. Hepatic encephalopathy On lactulose and rifaximin Ammonia trending down Improving 3. Ascites/anasarca Paracentesis unable to be obtained as no significant ascites identified ECHO revealed preserved EF, so peripheral edema/anasarca secondary to hyperalbuminemia Continue Lasix and spironolactone Monitor I's and O's 4. Chronic hepatitis C 5. Alcohol abuse [facility] protocol Status post banana bag Start by mouth thiamine/folic acid 6. Recent history of cocaine use Counseled, but questionable comprehension; discussed with daughter 7. Pancytopenia Due to decompensated cirrhosis/alcoholic and drug use Monitor closely Consider transfusion if necessary 8. Coagulopathy Due to decompensated cirrhosis Monitor INR Treat if needed 9. Jaundice/elevated LFTs Due to decompensated cirrhosis and continued alcohol use 10. Severe protein caloric malnutrition Due to nutritional deficiencies (in and out of prison), alcohol and drug use Dietitian consulted for supplementation 11. DVT prophylaxis SCDs. No pharmacological agent given pancytopenia/coagulopathy 12. Dispo Daughter would like placement; if not possible, home health and she will need to make arrangements to take patient at her home; patient released from prison 2- 3 weeks ago, since then leaving with his brother who brings him alcohol and drugs History Interval history: Mental status improved, but still confused, with no specific complaints No family available today Hospitalist Physical - Constitutional Vitals: Temp Pulse Resp BP Pulse Ox 98.3 F 66 18 115/55 98 03/15/17 20:00 03/15/17 20:00 03/15/17 20:00 03/15/17 20:00 03/15/17 20:00 General appearance: Present: no acute distress - EENT Eyes: Present: PERRL, EOM intact, scleral icterus. Absent: conjunctival injection - Neck Neck: Present: supple, normal ROM. Absent: masses or JVD - Respiratory Respiratory effort: normal Respiratory: bilateral: CTA, negative: rhonchi, wheezing - Cardiovascular Rhythm: regular Heart Sounds: Present: S1 & S2. Absent: systolic murmur - Extremities Extremities: no ischemia Extremity abnormal: edema - Abdominal General gastrointestinal: soft, non-tender, non-distended, normal bowel sounds - Psychiatric Psychiatric: cooperative, other (confused) - Neurologic Neurologic: no focal deficits Results - Labs CBC & Chem 7: 03/13/17 04:59 03/14/17 08:50 Labs: Laboratory Last Values WBC 3.0 K/mm3 (4.5-11.0) L 03/13/17 04:59 RBC 3.45 M/mm3 (3.65-5.03) L 03/13/17 04:59 Hgb 10.5 gm/dl (11.8-15.2) L 03/13/17 04:59 Hct 30.6 % (35.5-45.6) L 03/13/17 04:59 MCV 89 fl (84-94) 03/13/17 04:59 MCH 31 pg (28-32) 03/13/17 04:59 MCHC 35 % (32-34) H 03/13/17 04:59 RDW 19.8 % (13.2-15.2) H 03/13/17 04:59 Plt Count 49 K/mm3 (140-440) L 03/13/17 04:59 [place] % (Auto) Citrus Picker 03/12/17 18:02 Add Manual Diff Complete 03/12/17 18:02 Total Counted 100 03/12/17 18:02 Seg Neuts % (Manual) 49.0 % (40.0-70.0) 03/12/17 18:02 Band Neutrophils % 0 % 03/12/17 18:02 Lymphocytes % (Manual) 27.0 % (13.4-35.0) 03/12/17 18:02 Reactive Lymphs % (Man) 0 % 03/12/17 18:02 Monocytes % (Manual) 11.0 % (0.0-7.3) H 03/12/17 18:02 Eosinophils % (Manual) 12.0 % (0.0-4.3) H 03/12/17 18:02 Basophils % (Manual) 1.0 % (0.0-1.8) 03/12/17 18:02 Metamyelocytes % 0 % 03/12/17 18:02 Myelocytes % 0 % 03/12/17 18:02 Promyelocytes % 0 % 03/12/17 18:02 Blast Cells % 0 % 03/12/17 18:02 Nucleated RBC % Not Reportable 03/12/17 18:02 Seg Neutrophils # Man 1.9 K/mm3 (1.8-7.7) 03/12/17 18:02 Band Neutrophils # 0.0 K/mm3 03/12/17 18:02 Lymphocytes # (Manual) 1.1 K/mm3 (1.2-5.4) L 03/12/17 18:02 Abs React Lymphs (Man) 0.0 K/mm3 03/12/17 18:02 Monocytes # (Manual) 0.4 K/mm3 (0.0-0.8) 03/12/17 18:02 Eosinophils # (Manual) 0.5 K/mm3 (0.0-0.4) H 03/12/17 18:02 Basophils # (Manual) 0.0 K/mm3 (0.0-0.1) 03/12/17 18:02 Metamyelocytes # 0.0 K/mm3 03/12/17 18:02 Myelocytes # 0.0 K/mm3 03/12/17 18:02 Promyelocytes # 0.0 K/mm3 03/12/17 18:02 Blast Cells # 0.0 K/mm3 03/12/17 18:02 WBC Morphology Not Reportable 03/12/17 18:02 Hypersegmented Neuts Not Reportable 03/12/17 18:02 Hyposegmented Neuts Not Reportable 03/12/17 18:02 Hypogranular Neuts Not Reportable 03/12/17 18:02 Smudge Cells Not Reportable 03/12/17 18:02 Toxic Granulation Not Reportable 03/12/17 18:02 Toxic Vacuolation Not Reportable 03/12/17 18:02 Dohle Bodies Not Reportable 03/12/17 18:02 Pelger-Huet Anomaly Not Reportable 03/12/17 18:02 Joe Rods Not Reportable 03/12/17 18:02 Platelet Estimate Appears decreased 03/12/17 18:02 Clumped Platelets Not Reportable 03/12/17 18:02 Plt Clumps, EDTA Not Reportable 03/12/17 18:02 Large Platelets Not Reportable 03/12/17 18:02 Giant Platelets Not Reportable 03/12/17 18:02 Platelet Satelliting Not Reportable 03/12/17 18:02 Plt Morphology Comment Not Reportable 03/12/17 18:02 RBC Morphology Not Reportable 03/12/17 18:02 Dimorphic RBCs Not Reportable 03/12/17 18:02 Polychromasia Not Reportable 03/12/17 18:02 Hypochromasia 1+ 03/12/17 18:02 Poikilocytosis 1+ 03/12/17 18:02 Anisocytosis 1+ 03/12/17 18:02 Microcytosis Not Reportable 03/12/17 18:02 Macrocytosis Not Reportable 03/12/17 18:02 Spherocytes Not Reportable 03/12/17 18:02 Pappenheimer Bodies Not Reportable 03/12/17 18:02 Sickle Cells Not Reportable 03/12/17 18:02 Target Cells Not Reportable 03/12/17 18:02 Tear Drop Cells Not Reportable 03/12/17 18:02 Ovalocytes Not Reportable 03/12/17 18:02 Helmet Cells Not Reportable 03/12/17 18:02 [place] Bodies Not Reportable 03/12/17 18:02 [place] Rings Not Reportable 03/12/17 18:02 [place] Cells Not Reportable 03/12/17 18:02 Bite Cells Not Reportable 03/12/17 18:02 Crenated Cell Not Reportable 03/12/17 18:02 Elliptocytes Not Reportable 03/12/17 18:02 Acanthocytes (Spur) Not Reportable 03/12/17 18:02 Rouleaux Not Reportable 03/12/17 18:02 Hemoglobin C Crystals Not Reportable 03/12/17 18:02 Schistocytes Not Reportable 03/12/17 18:02 Malaria parasites Not Reportable 03/12/17 18:02 Alex Bodies Not Reportable 03/12/17 18:02 Hem Pathologist Commnt No 03/12/17 18:02 PT 18.0 Sec. (12.2-14.9) H 03/12/17 18:25 INR 1.41 (0.87-1.13) H 03/12/17 18:25 APTT 31.5 Sec. (24.2-36.6) 03/12/17 18:25 Thrombin Time 18.7 Sec. (15.1-19.6) 03/12/17 18:25 Sodium 142 mmol/L (137-145) 03/14/17 08:50 Potassium 3.8 mmol/L (3.6-5.0) 03/14/17 08:50 Chloride 109.3 mmol/L (98-107) H 03/14/17 08:50 Carbon Dioxide 23 mmol/L (22-30) 03/14/17 08:50 Anion Gap 14 mmol/L 03/14/17 08:50 BUN 13 mg/dL (9-20) 03/14/17 08:50 Creatinine 0.6 mg/dL (0.8-1.5) L 03/14/17 08:50 Estimated GFR > 60 ml/min 03/14/17 08:50 BUN/Creatinine Ratio 22 % 03/14/17 08:50 Glucose 99 mg/dL (75-100) 03/14/17 08:50 POC Glucose 126 (70-105) H 03/12/17 18:41 Calcium 7.3 mg/dL (8.4-10.2) L 03/14/17 08:50 Magnesium 1.70 mg/dL (1.7-2.3) 03/14/17 08:50 Total Bilirubin 4.40 mg/dL (0.1-1.2) H 03/14/17 08:50 Direct Bilirubin 3.1 mg/dL (0-0.2) H 03/13/17 04:59 Indirect Bilirubin 1.9 mg/dL 03/13/17 04:59 AST 131 units/L (5-40) H 03/14/17 08:50 ALT 85 units/L (7-56) H 03/14/17 08:50 Alkaline Phosphatase 198 units/L (35-129) H 03/14/17 08:50 Ammonia 89.0 umol/L (25-60) H 03/14/17 08:50 Troponin T < 0.010 ng/mL (0.00-0.029) 03/12/17 18:02 NT-Pro-B Natriuret Pep 163.7 pg/mL (0-900) 03/12/17 18:02 Total Protein 4.7 g/dL (6.3-8.2) L 03/14/17 08:50 Albumin 1.8 g/dL (3.9-5) L 03/14/17 08:50 Albumin/Globulin Ratio 0.6 % 03/14/17 08:50 TSH 3.260 mlU/mL (0.270-4.200) 03/12/17 20:10 Plasma/Serum Alcohol < 0.01 gm% (0-0.07) 03/12/17 20:10 Hepatitis A IgM Ab Non-reactive (NonReactive) 03/14/17 08:50 Hep Bs Antigen Non-reactive (Negative) 03/14/17 08:50 Hep B Core IgM Ab Non-reactive (NonReactive) 03/14/17 08:50 Hepatitis C Antibody Reactive (NonReactive) A 03/14/17 08:50
[2017-03-16] MEDS: CEPHULAC PO SCH ×4 (06:34→23:26)
[2017-03-16 06:39] LABS: Alanine Aminotransferase 84 units/L (7-56); Albumin 1.8 g/dL (3.9-5); Albumin/Globulin Ratio 0.6 %; Alkaline Phosphatase 242 units/L (35-129); Anion Gap 11 mmol/L; BUN/Creatinine Ratio 28; Blood Urea Nitrogen 14 mg/dL (9-20); Calcium 7.3 mg/dL (8.4-10.2); Carbon Dioxide 24 mmol/L (22-30); Chloride 107.1 mmol/L (98-107); Glucose 95 mg/dL (75-100); Potassium 3.8 mmol/L (3.6-5.0); Sodium 138 mmol/L (137-145); Total Protein 4.9 g/dL (6.3-8.2)
[2017-03-16 06:40] LABS: Basophils % (Auto) 0.4 % (0.0-1.8); Hematocrit 32.8 % (35.5-45.6); Hemoglobin 11.3 gm/dl (11.8-15.2); Mean Corpuscular HGB Conc 34 % (32-34); Mean Corpuscular Hemoglobin 31 pg (28-32); Mean Corpuscular Volume 90 fl (84-94); Red Blood Count 3.67 M/mm3 (3.65-5.03); White Blood Count 3.5 K/mm3 (4.5-11.0)
[2017-03-16 06:43] LABS: Platelet Count 48 K/mm3 (140-440); Red Cell Distribution Width 20.3 % (13.2-15.2)
[2017-03-16 06:50] LABS: INR 1.6 (0.87-1.13)
--- NOTE | 2017-03-16 10:14 | Gastroenterology Progress Note ---
Assessment and Plan Liver: cirrhosis with resolving encephalopathy - continue Xifaxan bid and Lactulose (30 cc po bid/tid) for 2-3 bm per day - otherwise stable from GI standpoint for d/c - call if needed Subjective Date of service: 03/16/17 Principal diagnosis: Hep Encephalopathy Interval history: - pt reports feeling well, wants to go home Objective - Exam Narrative Exam: A&O x 3 - Constitutional Vitals: Temp Pulse Resp BP Pulse Ox 98.8 F 65 18 126/72 96 03/16/17 04:09 03/16/17 08:47 03/16/17 04:09 03/16/17 04:09 03/16/17 08:47 General appearance: no acute distress - Respiratory Respiratory: bilateral: CTA - Cardiovascular Rhythm: regular Heart Sounds: Present: S1 & S2 - Gastrointestinal General gastrointestinal: Present: soft, non-tender - Labs CBC & Chem 7: 03/16/17 05:42 03/16/17 05:42 Labs: Laboratory Results - last 24 hr 03/16/17 03/16/17 03/16/17 05:42 05:42 05:42 WBC 3.5 L RBC 3.67 Hgb 11.3 L Hct 32.8 L MCV 90 MCH 31 MCHC 34 RDW 20.3 H Plt Count 48 L Lymph % (Auto) 30.7 [place] % (Auto) 15.5 H Eos % (Auto) 10.0 H Baso % (Auto) 0.4 Lymph # 1.1 L [place] # 0.5 Eos # 0.3 Baso # 0.0 Seg Neutrophils % 43.4 Seg Neutrophils # 1.5 L PT 19.8 H INR 1.60 H Sodium 138 Potassium 3.8 Chloride 107.1 H Carbon Dioxide 24 Anion Gap 11 BUN 14 Creatinine 0.5 L Estimated GFR > 60 BUN/Creatinine Ratio 28 Glucose 95 Calcium 7.3 L Magnesium 1.70 Total Bilirubin 3.40 H AST 132 H ALT 84 H Alkaline Phosphatase 242 H Ammonia Total Protein 4.9 L Albumin 1.8 L Albumin/Globulin Ratio 0.6 03/16/17 05:42 WBC RBC Hgb Hct MCV MCH MCHC RDW Plt Count Lymph % (Auto) [place] % (Auto) Eos % (Auto) Baso % (Auto) Lymph # [place] # Eos # Baso # Seg Neutrophils % Seg Neutrophils # PT INR Sodium Potassium Chloride Carbon Dioxide Anion Gap BUN Creatinine Estimated GFR BUN/Creatinine Ratio Glucose Calcium Magnesium Total Bilirubin AST ALT Alkaline Phosphatase Ammonia 212.0 H Total Protein Albumin Albumin/Globulin Ratio
[2017-03-16] MEDS: FOLVITE PO SCH (10:55)
[2017-03-16] MEDS: LASIX IV SCH (10:55)
[2017-03-16] MEDS: LIBRIUM PO SCH ×3 (10:56→23:26)
[2017-03-16] MEDS: XIFAXAN PO SCH ×2 (10:56→22:50)
[2017-03-16] MEDS: ALDACTONE PO SCH (10:56)
[2017-03-16] MEDS: PROTONIX PO SCH (10:56)
[2017-03-16] MEDS: VITAMIN B-1 PO SCH (10:57)
[2017-03-16] MEDS: CORGARD PO SCH (11:03)
--- NOTE | 2017-03-16 15:54 | Progress Note ---
Assessment and Plan Assessment and plan: 1. Decompensated cirrhosis Secondary to hepatitis C and alcohol abuse Continue diuretics, beta elizabeth, lactulose 2. Hepatic encephalopathy On lactulose and rifaximin Ammonia trended down, but now going up again Will increase lactulose dose 3. Ascites/anasarca Paracentesis unable to be obtained as no significant ascites identified ECHO revealed preserved EF, so peripheral edema/anasarca secondary to hyperalbuminemia Continue Lasix and spironolactone Monitor I's and O's 4. Chronic hepatitis C 5. Alcohol abuse [facility] protocol Status post banana bag Started on by mouth thiamine/folic acid 6. Recent history of cocaine use Counseled, but questionable comprehension; discussed with daughter 7. Pancytopenia Due to decompensated cirrhosis/alcohol and drug use Monitor closely Consider transfusion if necessary 8. Coagulopathy Due to decompensated cirrhosis Monitor INR Treat if needed 9. Jaundice/elevated LFTs Due to decompensated cirrhosis and continued alcohol use 10. Severe protein caloric malnutrition Due to nutritional deficiencies (in and out of group home), alcohol and drug use Dietitian consulted for supplementation 11. DVT prophylaxis SCDs. No pharmacological agent given pancytopenia/coagulopathy 12. Dispo Daughter would like placement; if not possible, home health and she will need to make arrangements to take patient at her home; patient released from group home 2- 3 weeks ago, since then leaving with his brother who brings him alcohol and drugs History Interval history: confused, no complaints, no family available today Hospitalist Physical - Constitutional Vitals: Temp Pulse Resp BP Pulse Ox 98.3 F 61 18 117/64 96 03/16/17 12:44 03/16/17 12:44 03/16/17 04:09 03/16/17 12:44 03/16/17 08:47 General appearance: Present: no acute distress - EENT Eyes: Present: PERRL, EOM intact, scleral icterus. Absent: conjunctival injection - Neck Neck: Present: supple, normal ROM. Absent: masses or JVD - Respiratory Respiratory effort: normal Respiratory: bilateral: CTA, negative: rhonchi, wheezing - Cardiovascular Rhythm: regular Heart Sounds: Present: S1 & S2. Absent: systolic murmur - Extremities Extremities: no ischemia Extremity abnormal: edema - Abdominal General gastrointestinal: soft, non-tender, non-distended, normal bowel sounds - Psychiatric Psychiatric: cooperative - Neurologic Neurologic: CNII-XII intact, moves all extremities Results - Labs CBC & Chem 7: 03/16/17 05:42 03/16/17 05:42 Labs: Laboratory Last Values WBC 3.5 K/mm3 (4.5-11.0) L 03/16/17 05:42 RBC 3.67 M/mm3 (3.65-5.03) 03/16/17 05:42 Hgb 11.3 gm/dl (11.8-15.2) L 03/16/17 05:42 Hct 32.8 % (35.5-45.6) L 03/16/17 05:42 MCV 90 fl (84-94) 03/16/17 05:42 MCH 31 pg (28-32) 03/16/17 05:42 MCHC 34 % (32-34) 03/16/17 05:42 RDW 20.3 % (13.2-15.2) H 03/16/17 05:42 Plt Count 48 K/mm3 (140-440) L 03/16/17 05:42 Lymph % (Auto) 30.7 % (13.4-35.0) 03/16/17 05:42 [place] % (Auto) 15.5 % (0.0-7.3) H 03/16/17 05:42 Eos % (Auto) 10.0 % (0.0-4.3) H 03/16/17 05:42 Baso % (Auto) 0.4 % (0.0-1.8) 03/16/17 05:42 Lymph # 1.1 K/mm3 (1.2-5.4) L 03/16/17 05:42 [place] # 0.5 K/mm3 (0.0-0.8) 03/16/17 05:42 Eos # 0.3 K/mm3 (0.0-0.4) 03/16/17 05:42 Baso # 0.0 K/mm3 (0.0-0.1) 03/16/17 05:42 Add Manual Diff Complete 03/12/17 18:02 Total Counted 100 03/12/17 18:02 Seg Neutrophils % 43.4 % (40.0-70.0) 03/16/17 05:42 Seg Neuts % (Manual) 49.0 % (40.0-70.0) 03/12/17 18:02 Band Neutrophils % 0 % 03/12/17 18:02 Lymphocytes % (Manual) 27.0 % (13.4-35.0) 03/12/17 18:02 Reactive Lymphs % (Man) 0 % 03/12/17 18:02 Monocytes % (Manual) 11.0 % (0.0-7.3) H 03/12/17 18:02 Eosinophils % (Manual) 12.0 % (0.0-4.3) H 03/12/17 18:02 Basophils % (Manual) 1.0 % (0.0-1.8) 03/12/17 18:02 Metamyelocytes % 0 % 03/12/17 18:02 Myelocytes % 0 % 03/12/17 18:02 Promyelocytes % 0 % 03/12/17 18:02 Blast Cells % 0 % 03/12/17 18:02 Nucleated RBC % Not Reportable 03/12/17 18:02 Seg Neutrophils # 1.5 K/mm3 (1.8-7.7) L 03/16/17 05:42 Seg Neutrophils # Man 1.9 K/mm3 (1.8-7.7) 03/12/17 18:02 Band Neutrophils # 0.0 K/mm3 03/12/17 18:02 Lymphocytes # (Manual) 1.1 K/mm3 (1.2-5.4) L 03/12/17 18:02 Abs React Lymphs (Man) 0.0 K/mm3 03/12/17 18:02 Monocytes # (Manual) 0.4 K/mm3 (0.0-0.8) 03/12/17 18:02 Eosinophils # (Manual) 0.5 K/mm3 (0.0-0.4) H 03/12/17 18:02 Basophils # (Manual) 0.0 K/mm3 (0.0-0.1) 03/12/17 18:02 Metamyelocytes # 0.0 K/mm3 03/12/17 18:02 Myelocytes # 0.0 K/mm3 03/12/17 18:02 Promyelocytes # 0.0 K/mm3 03/12/17 18:02 Blast Cells # 0.0 K/mm3 03/12/17 18:02 WBC Morphology Not Reportable 03/12/17 18:02 Hypersegmented Neuts Not Reportable 03/12/17 18:02 Hyposegmented Neuts Not Reportable 03/12/17 18:02 Hypogranular Neuts Not Reportable 03/12/17 18:02 Smudge Cells Not Reportable 03/12/17 18:02 Toxic Granulation Not Reportable 03/12/17 18:02 Toxic Vacuolation Not Reportable 03/12/17 18:02 Dohle Bodies Not Reportable 03/12/17 18:02 Pelger-Huet Anomaly Not Reportable 03/12/17 18:02 Joe Rods Not Reportable 03/12/17 18:02 Platelet Estimate Appears decreased 03/12/17 18:02 Clumped Platelets Not Reportable 03/12/17 18:02 Plt Clumps, EDTA Not Reportable 03/12/17 18:02 Large Platelets Not Reportable 03/12/17 18:02 Giant Platelets Not Reportable 03/12/17 18:02 Platelet Satelliting Not Reportable 03/12/17 18:02 Plt Morphology Comment Not Reportable 03/12/17 18:02 RBC Morphology Not Reportable 03/12/17 18:02 Dimorphic RBCs Not Reportable 03/12/17 18:02 Polychromasia Not Reportable 03/12/17 18:02 Hypochromasia 1+ 03/12/17 18:02 Poikilocytosis 1+ 03/12/17 18:02 Anisocytosis 1+ 03/12/17 18:02 Microcytosis Not Reportable 03/12/17 18:02 Macrocytosis Not Reportable 03/12/17 18:02 Spherocytes Not Reportable 03/12/17 18:02 Pappenheimer Bodies Not Reportable 03/12/17 18:02 Sickle Cells Not Reportable 03/12/17 18:02 Target Cells Not Reportable 03/12/17 18:02 Tear Drop Cells Not Reportable 03/12/17 18:02 Ovalocytes Not Reportable 03/12/17 18:02 Helmet Cells Not Reportable 03/12/17 18:02 [place] Bodies Not Reportable 03/12/17 18:02 [place] Rings Not Reportable 03/12/17 18:02 [place] Cells Not Reportable 03/12/17 18:02 Bite Cells Not Reportable 03/12/17 18:02 Crenated Cell Not Reportable 03/12/17 18:02 Elliptocytes Not Reportable 03/12/17 18:02 Acanthocytes (Spur) Not Reportable 03/12/17 18:02 Rouleaux Not Reportable 03/12/17 18:02 Hemoglobin C Crystals Not Reportable 03/12/17 18:02 Schistocytes Not Reportable 03/12/17 18:02 Malaria parasites Not Reportable 03/12/17 18:02 Alex Bodies Not Reportable 03/12/17 18:02 Hem Pathologist Commnt No 03/12/17 18:02 PT 19.8 Sec. (12.2-14.9) H 03/16/17 05:42 INR 1.60 (0.87-1.13) H 03/16/17 05:42 APTT 31.5 Sec. (24.2-36.6) 03/12/17 18:25 Thrombin Time 18.7 Sec. (15.1-19.6) 03/12/17 18:25 Sodium 138 mmol/L (137-145) 03/16/17 05:42 Potassium 3.8 mmol/L (3.6-5.0) 03/16/17 05:42 Chloride 107.1 mmol/L (98-107) H 03/16/17 05:42 Carbon Dioxide 24 mmol/L (22-30) 03/16/17 05:42 Anion Gap 11 mmol/L 03/16/17 05:42 BUN 14 mg/dL (9-20) 03/16/17 05:42 Creatinine 0.5 mg/dL (0.8-1.5) L 03/16/17 05:42 Estimated GFR > 60 ml/min 03/16/17 05:42 BUN/Creatinine Ratio 28 % 03/16/17 05:42 Glucose 95 mg/dL (75-100) 03/16/17 05:42 POC Glucose 126 (70-105) H 03/12/17 18:41 Calcium 7.3 mg/dL (8.4-10.2) L 03/16/17 05:42 Magnesium 1.70 mg/dL (1.7-2.3) 03/16/17 05:42 Total Bilirubin 3.40 mg/dL (0.1-1.2) H 03/16/17 05:42 Direct Bilirubin 3.1 mg/dL (0-0.2) H 03/13/17 04:59 Indirect Bilirubin 1.9 mg/dL 03/13/17 04:59 AST 132 units/L (5-40) H 03/16/17 05:42 ALT 84 units/L (7-56) H 03/16/17 05:42 Alkaline Phosphatase 242 units/L (35-129) H 03/16/17 05:42 Ammonia 212.0 umol/L (25-60) H 03/16/17 05:42 Troponin T < 0.010 ng/mL (0.00-0.029) 03/12/17 18:02 NT-Pro-B Natriuret Pep 163.7 pg/mL (0-900) 03/12/17 18:02 Total Protein 4.9 g/dL (6.3-8.2) L 03/16/17 05:42 Albumin 1.8 g/dL (3.9-5) L 03/16/17 05:42 Albumin/Globulin Ratio 0.6 % 03/16/17 05:42 TSH 3.260 mlU/mL (0.270-4.200) 03/12/17 20:10 Plasma/Serum Alcohol < 0.01 gm% (0-0.07) 03/12/17 20:10 Hepatitis A IgM Ab Non-reactive (NonReactive) 03/14/17 08:50 Hep Bs Antigen Non-reactive (Negative) 03/14/17 08:50 Hep B Core IgM Ab Non-reactive (NonReactive) 03/14/17 08:50 Hepatitis C Antibody Reactive (NonReactive) A 03/14/17 08:50
[2017-03-17] MEDS: CEPHULAC PO SCH (05:46)
--- NOTE | 2017-03-17 11:54 | Progress Note ---
Assessment and Plan Assessment and plan: 1. Decompensated cirrhosis Secondary to hepatitis C and alcohol abuse Continue diuretics, beta elizabeth, lactulose 2. Hepatic encephalopathy On lactulose and rifaximin Ammonia trended down, but now going up again Further increase lactulose dose today 3. Ascites/anasarca Paracentesis unable to be obtained as no significant ascites identified ECHO revealed preserved EF, so peripheral edema/anasarca secondary to hyperalbuminemia Continue Lasix and spironolactone Monitor I's and O's 4. Chronic hepatitis C 5. Alcohol abuse [facility] protocol Status post banana bag Started on by mouth thiamine/folic acid 6. Recent history of cocaine use Counseled, but questionable comprehension; discussed with daughter 7. Pancytopenia Due to decompensated cirrhosis/alcohol and drug use Monitor closely Consider transfusion if necessary 8. Coagulopathy Due to decompensated cirrhosis Monitor INR Treat if needed 9. Jaundice/elevated LFTs Due to decompensated cirrhosis and continued alcohol use 10. Severe protein caloric malnutrition Due to nutritional deficiencies (in and out of [facility]), alcohol and drug use Dietitian consulted for supplementation 11. DVT prophylaxis SCDs. No pharmacological agent given pancytopenia/coagulopathy 12. Dispo Daughter would like placement; if not possible, home health and she will need to make arrangements to take patient at her home; patient released from [facility] 2- 3 weeks ago, since then leaving with his brother who brings him alcohol and drugs; will try to discuss with daughter options, including hospice care History Interval history: confused, no complaints, no family available trying to reach daughter to discuss about options including hospice Hospitalist Physical - Constitutional Vitals: Temp Pulse Resp BP Pulse Ox 98.8 F 64 20 142/73 99 03/17/17 11:14 03/17/17 11:14 03/17/17 11:14 03/17/17 11:14 03/17/17 11:14 General appearance: Present: no acute distress - EENT Eyes: Present: PERRL, EOM intact, scleral icterus. Absent: conjunctival injection - Neck Neck: Present: supple. Absent: enlarged thyroid, masses or JVD - Respiratory Respiratory effort: normal Respiratory: bilateral: diminished, negative: rhonchi, wheezing - Cardiovascular Rhythm: regular Heart Sounds: Present: S1 & S2. Absent: systolic murmur - Extremities Extremities: no ischemia Extremity abnormal: edema - Abdominal General gastrointestinal: soft, non-tender, distended (slightly), normal bowel sounds - Psychiatric Psychiatric: no intact judgment & insight, no memory intact, other (confused) - Neurologic Neurologic: CNII-XII intact, moves all extremities Results - Labs CBC & Chem 7: 03/16/17 05:42 03/16/17 05:42 Labs: Laboratory Last Values WBC 3.5 K/mm3 (4.5-11.0) L 03/16/17 05:42 RBC 3.67 M/mm3 (3.65-5.03) 03/16/17 05:42 Hgb 11.3 gm/dl (11.8-15.2) L 03/16/17 05:42 Hct 32.8 % (35.5-45.6) L 03/16/17 05:42 MCV 90 fl (84-94) 03/16/17 05:42 MCH 31 pg (28-32) 03/16/17 05:42 MCHC 34 % (32-34) 03/16/17 05:42 RDW 20.3 % (13.2-15.2) H 03/16/17 05:42 Plt Count 48 K/mm3 (140-440) L 03/16/17 05:42 Lymph % (Auto) 30.7 % (13.4-35.0) 03/16/17 05:42 [place] % (Auto) 15.5 % (0.0-7.3) H 03/16/17 05:42 Eos % (Auto) 10.0 % (0.0-4.3) H 03/16/17 05:42 Baso % (Auto) 0.4 % (0.0-1.8) 03/16/17 05:42 Lymph # 1.1 K/mm3 (1.2-5.4) L 03/16/17 05:42 [place] # 0.5 K/mm3 (0.0-0.8) 03/16/17 05:42 Eos # 0.3 K/mm3 (0.0-0.4) 03/16/17 05:42 Baso # 0.0 K/mm3 (0.0-0.1) 03/16/17 05:42 Add Manual Diff Complete 03/12/17 18:02 Total Counted 100 03/12/17 18:02 Seg Neutrophils % 43.4 % (40.0-70.0) 03/16/17 05:42 Seg Neuts % (Manual) 49.0 % (40.0-70.0) 03/12/17 18:02 Band Neutrophils % 0 % 03/12/17 18:02 Lymphocytes % (Manual) 27.0 % (13.4-35.0) 03/12/17 18:02 Reactive Lymphs % (Man) 0 % 03/12/17 18:02 Monocytes % (Manual) 11.0 % (0.0-7.3) H 03/12/17 18:02 Eosinophils % (Manual) 12.0 % (0.0-4.3) H 03/12/17 18:02 Basophils % (Manual) 1.0 % (0.0-1.8) 03/12/17 18:02 Metamyelocytes % 0 % 03/12/17 18:02 Myelocytes % 0 % 03/12/17 18:02 Promyelocytes % 0 % 03/12/17 18:02 Blast Cells % 0 % 03/12/17 18:02 Nucleated RBC % Not Reportable 03/12/17 18:02 Seg Neutrophils # 1.5 K/mm3 (1.8-7.7) L 03/16/17 05:42 Seg Neutrophils # Man 1.9 K/mm3 (1.8-7.7) 03/12/17 18:02 Band Neutrophils # 0.0 K/mm3 03/12/17 18:02 Lymphocytes # (Manual) 1.1 K/mm3 (1.2-5.4) L 03/12/17 18:02 Abs React Lymphs (Man) 0.0 K/mm3 03/12/17 18:02 Monocytes # (Manual) 0.4 K/mm3 (0.0-0.8) 03/12/17 18:02 Eosinophils # (Manual) 0.5 K/mm3 (0.0-0.4) H 03/12/17 18:02 Basophils # (Manual) 0.0 K/mm3 (0.0-0.1) 03/12/17 18:02 Metamyelocytes # 0.0 K/mm3 03/12/17 18:02 Myelocytes # 0.0 K/mm3 03/12/17 18:02 Promyelocytes # 0.0 K/mm3 03/12/17 18:02 Blast Cells # 0.0 K/mm3 03/12/17 18:02 WBC Morphology Not Reportable 03/12/17 18:02 Hypersegmented Neuts Not Reportable 03/12/17 18:02 Hyposegmented Neuts Not Reportable 03/12/17 18:02 Hypogranular Neuts Not Reportable 03/12/17 18:02 Smudge Cells Not Reportable 03/12/17 18:02 Toxic Granulation Not Reportable 03/12/17 18:02 Toxic Vacuolation Not Reportable 03/12/17 18:02 Dohle Bodies Not Reportable 03/12/17 18:02 Pelger-Huet Anomaly Not Reportable 03/12/17 18:02 Joe Rods Not Reportable 03/12/17 18:02 Platelet Estimate Appears decreased 03/12/17 18:02 Clumped Platelets Not Reportable 03/12/17 18:02 Plt Clumps, EDTA Not Reportable 03/12/17 18:02 Large Platelets Not Reportable 03/12/17 18:02 Giant Platelets Not Reportable 03/12/17 18:02 Platelet Satelliting Not Reportable 03/12/17 18:02 Plt Morphology Comment Not Reportable 03/12/17 18:02 RBC Morphology Not Reportable 03/12/17 18:02 Dimorphic RBCs Not Reportable 03/12/17 18:02 Polychromasia Not Reportable 03/12/17 18:02 Hypochromasia 1+ 03/12/17 18:02 Poikilocytosis 1+ 03/12/17 18:02 Anisocytosis 1+ 03/12/17 18:02 Microcytosis Not Reportable 03/12/17 18:02 Macrocytosis Not Reportable 03/12/17 18:02 Spherocytes Not Reportable 03/12/17 18:02 Pappenheimer Bodies Not Reportable 03/12/17 18:02 Sickle Cells Not Reportable 03/12/17 18:02 Target Cells Not Reportable 03/12/17 18:02 Tear Drop Cells Not Reportable 03/12/17 18:02 Ovalocytes Not Reportable 03/12/17 18:02 Helmet Cells Not Reportable 03/12/17 18:02 [place] Bodies Not Reportable 03/12/17 18:02 [place] Rings Not Reportable 03/12/17 18:02 [place] Cells Not Reportable 03/12/17 18:02 Bite Cells Not Reportable 03/12/17 18:02 Crenated Cell Not Reportable 03/12/17 18:02 Elliptocytes Not Reportable 03/12/17 18:02 Acanthocytes (Spur) Not Reportable 03/12/17 18:02 Rouleaux Not Reportable 03/12/17 18:02 Hemoglobin C Crystals Not Reportable 03/12/17 18:02 Schistocytes Not Reportable 03/12/17 18:02 Malaria parasites Not Reportable 03/12/17 18:02 Alex Bodies Not Reportable 03/12/17 18:02 Hem Pathologist Commnt No 03/12/17 18:02 PT 19.8 Sec. (12.2-14.9) H 03/16/17 05:42 INR 1.60 (0.87-1.13) H 03/16/17 05:42 APTT 31.5 Sec. (24.2-36.6) 03/12/17 18:25 Thrombin Time 18.7 Sec. (15.1-19.6) 03/12/17 18:25 Sodium 138 mmol/L (137-145) 03/16/17 05:42 Potassium 3.8 mmol/L (3.6-5.0) 03/16/17 05:42 Chloride 107.1 mmol/L (98-107) H 03/16/17 05:42 Carbon Dioxide 24 mmol/L (22-30) 03/16/17 05:42 Anion Gap 11 mmol/L 03/16/17 05:42 BUN 14 mg/dL (9-20) 03/16/17 05:42 Creatinine 0.5 mg/dL (0.8-1.5) L 03/16/17 05:42 Estimated GFR > 60 ml/min 03/16/17 05:42 BUN/Creatinine Ratio 28 % 03/16/17 05:42 Glucose 95 mg/dL (75-100) 03/16/17 05:42 POC Glucose 126 (70-105) H 03/12/17 18:41 Calcium 7.3 mg/dL (8.4-10.2) L 03/16/17 05:42 Magnesium 1.70 mg/dL (1.7-2.3) 03/16/17 05:42 Total Bilirubin 3.40 mg/dL (0.1-1.2) H 03/16/17 05:42 Direct Bilirubin 3.1 mg/dL (0-0.2) H 03/13/17 04:59 Indirect Bilirubin 1.9 mg/dL 03/13/17 04:59 AST 132 units/L (5-40) H 03/16/17 05:42 ALT 84 units/L (7-56) H 03/16/17 05:42 Alkaline Phosphatase 242 units/L (35-129) H 03/16/17 05:42 Ammonia 239.0 umol/L (25-60) H 03/17/17 07:18 Troponin T < 0.010 ng/mL (0.00-0.029) 03/12/17 18:02 NT-Pro-B Natriuret Pep 163.7 pg/mL (0-900) 03/12/17 18:02 Total Protein 4.9 g/dL (6.3-8.2) L 03/16/17 05:42 Albumin 1.8 g/dL (3.9-5) L 03/16/17 05:42 Albumin/Globulin Ratio 0.6 % 03/16/17 05:42 TSH 3.260 mlU/mL (0.270-4.200) 03/12/17 20:10 Plasma/Serum Alcohol < 0.01 gm% (0-0.07) 03/12/17 20:10 Hepatitis A IgM Ab Non-reactive (NonReactive) 03/14/17 08:50 Hep Bs Antigen Non-reactive (Negative) 03/14/17 08:50 Hep B Core IgM Ab Non-reactive (NonReactive) 03/14/17 08:50 Hepatitis C Antibody Reactive (NonReactive) A 03/14/17 08:50
[2017-03-17] MEDS: FOLVITE PO SCH (12:57)
[2017-03-17] MEDS: XIFAXAN PO SCH ×2 (12:58→21:43)
[2017-03-17] MEDS: PROTONIX PO SCH (12:58)
[2017-03-17] MEDS: ALDACTONE PO SCH (12:58)
[2017-03-17] MEDS: CORGARD PO SCH (12:59)
[2017-03-17] MEDS: LIBRIUM PO SCH ×2 (13:03→18:31)
[2017-03-17] MEDS: VITAMIN B-1 PO SCH (13:16)
[2017-03-17] MEDS: LASIX IV SCH (13:17)
[2017-03-17] MEDS ORDERED: CEPHULAC PO SCH (14:00)
--- NOTE | 2017-03-17 14:22 | Gastroenterology Progress Note ---
Assessment and Plan 1.decompensated cirrhosis 2.hepatic encephalopathy 3.ascites 4.alcohol abuse 5.hepatitis C -ammonia level 239-increasing -lactulose dose increased today- goal of 2 to 3 BMs daily -continue Xifaxan -avoid sedating medications -monitor/tx alcohol withdrawal -continue diuretics and beta elizabeth -continue supportive care -will follow Subjective Date of service: 03/17/17 Principal diagnosis: Hep Encephalopathy Interval history: Patient resting in bed. No acute distress. Objective - Constitutional Vitals: Temp Pulse Resp BP Pulse Ox 98.8 F 60 20 142/73 99 03/17/17 11:14 03/17/17 12:59 03/17/17 11:14 03/17/17 11:14 03/17/17 11:14 General appearance: no acute distress - Respiratory Respiratory: bilateral: diminished - Cardiovascular Rhythm: regular Heart Sounds: Present: S1 & S2 - Extremities Extremity abnormal: edema - Gastrointestinal General gastrointestinal: Present: soft, non-tender, normal bowel sounds - Integumentary Integumentary: Present: warm, dry - Labs CBC & Chem 7: 03/16/17 05:42 03/16/17 05:42 Labs: Laboratory Results - last 24 hr 03/17/17 07:18 Ammonia 239.0 H
[2017-03-17 17:58] LABS: Bilirubin,Urine NEG (Negative); Blood,Urine NEG (Negative); Ketones,Urine NEG (Negative); Leukocyte Esterase,Urine LG (Negative); Mucus,Urine 1+ /HPF; Nitrite,Urine NEG (Negative); Protein,Urine <15 mg/dL mg/dL (Negative)
[2017-03-17 17:59] LABS: WBC,Urine > 182.0 /HPF (0.0-6.0)
[2017-03-17] MEDS: CEPHULAC PR SCH ×2 (18:30→22:37)
[2017-03-18] MEDS: LIBRIUM PO SCH ×3 (00:29→16:30)
[2017-03-18 04:59] LABS: Basophils % (Auto) 0.5 % (0.0-1.8); Eosinophils % (Auto) 10.2 % (0.0-4.3); Hematocrit 34.5 % (35.5-45.6); Hemoglobin 11.7 gm/dl (11.8-15.2); Mean Corpuscular HGB Conc 34 % (32-34); Mean Corpuscular Hemoglobin 30 pg (28-32); Mean Corpuscular Volume 90 fl (84-94); Red Blood Count 3.83 M/mm3 (3.65-5.03); White Blood Count 3.6 K/mm3 (4.5-11.0)
[2017-03-18 05:05] LABS: Platelet Count 56 K/mm3 (140-440); Red Cell Distribution Width 20.3 % (13.2-15.2)
[2017-03-18 05:07] LABS: INR 1.58 (0.87-1.13)
[2017-03-18 05:23] LABS: Alanine Aminotransferase 78 units/L (7-56); Albumin 1.8 g/dL (3.9-5); Albumin/Globulin Ratio 0.5 %; Alkaline Phosphatase 242 units/L (35-129); Anion Gap 15 mmol/L; BUN/Creatinine Ratio 20; Blood Urea Nitrogen 12 mg/dL (9-20); Calcium 7.2 mg/dL (8.4-10.2); Carbon Dioxide 21 mmol/L (22-30); Chloride 107.3 mmol/L (98-107); Glucose 103 mg/dL (75-100); Potassium 4.1 mmol/L (3.6-5.0); Sodium 139 mmol/L (137-145); Total Protein 5.2 g/dL (6.3-8.2)
[2017-03-18] MEDS: ALDACTONE PO SCH (09:27)
[2017-03-18] MEDS: VITAMIN B-1 PO SCH (09:28)
[2017-03-18] MEDS: PROTONIX PO SCH (09:28)
[2017-03-18] MEDS: FOLVITE PO SCH (09:28)
[2017-03-18] MEDS: XIFAXAN PO SCH ×2 (09:31→21:31)
--- NOTE | 2017-03-18 10:04 | Gastroenterology Progress Note ---
Assessment and Plan 1.decompensated cirrhosis 2.hepatic encephalopathy 3.ascites 4.alcohol abuse 5.hepatitis C -ammonia level 220-slowing improving -pt with BM x 1 this am-will place on oral lactulose along with rectal for goal of 2 to 3 BMs daily -continue Xifaxan -avoid sedating medications -monitor/tx alcohol withdrawal -continue diuretics and beta elizabeth -continue supportive care -will follow Subjective Date of service: 03/18/17 Principal diagnosis: Hep Encephalopathy Interval history: Patient resting in bed. No acute distress. Objective - Constitutional Vitals: Temp Pulse Resp BP Pulse Ox 98.7 F 66 18 102/58 94 03/18/17 07:57 03/18/17 09:44 03/18/17 09:44 03/18/17 09:27 03/18/17 09:44 General appearance: no acute distress - Respiratory Respiratory: bilateral: diminished - Cardiovascular Rhythm: regular Heart Sounds: Present: S1 & S2 - Extremities Extremity abnormal: edema - Gastrointestinal General gastrointestinal: Present: soft, non-tender, non-distended, normal bowel sounds - Integumentary Integumentary: Present: warm, dry - Labs CBC & Chem 7: 03/18/17 04:39 03/18/17 04:39 Labs: Laboratory Results - last 24 hr 03/17/17 03/18/17 03/18/17 09:19 04:39 04:39 WBC 3.6 L RBC 3.83 Hgb 11.7 L Hct 34.5 L MCV 90 MCH 30 MCHC 34 RDW 20.3 H Plt Count 56 L Lymph % (Auto) 28.7 [place] % (Auto) 13.5 H Eos % (Auto) 10.2 H Baso % (Auto) 0.5 Lymph # 1.0 L [place] # 0.5 Eos # 0.4 Baso # 0.0 Seg Neutrophils % 47.1 Seg Neutrophils # 1.7 L PT 19.6 H INR 1.58 H Sodium Potassium Chloride Carbon Dioxide Anion Gap BUN Creatinine Estimated GFR BUN/Creatinine Ratio Glucose Calcium Total Bilirubin AST ALT Alkaline Phosphatase Ammonia Total Protein Albumin Albumin/Globulin Ratio Urine Color Patricia Urine Turbidity Clear Urine pH 6.0 Ur Specific [place] 1.021 Urine Protein <15 mg/dl Urine Glucose (UA) Neg Urine Ketones Neg Urine Blood Neg Urine Nitrite Neg Urine Bilirubin Neg Urine Urobilinogen 2.0 Ur Leukocyte Esterase Lg Urine WBC (Auto) > 182.0 H Urine RBC (Auto) 7.0 U Epithel Cells (Auto) 1.0 Urine Mucus 1+ 03/18/17 03/18/17 04:39 04:39 WBC RBC Hgb Hct MCV MCH MCHC RDW Plt Count Lymph % (Auto) [place] % (Auto) Eos % (Auto) Baso % (Auto) Lymph # [place] # Eos # Baso # Seg Neutrophils % Seg Neutrophils # PT INR Sodium 139 Potassium 4.1 Chloride 107.3 H Carbon Dioxide 21 L Anion Gap 15 BUN 12 Creatinine 0.6 L Estimated GFR > 60 BUN/Creatinine Ratio 20 Glucose 103 H Calcium 7.2 L Total Bilirubin 3.90 H AST 114 H ALT 78 H Alkaline Phosphatase 242 H Ammonia 220.0 H Total Protein 5.2 L Albumin 1.8 L Albumin/Globulin Ratio 0.5 Urine Color Urine Turbidity Urine pH Ur Specific [place] Urine Protein Urine Glucose (UA) Urine Ketones Urine Blood Urine Nitrite Urine Bilirubin Urine Urobilinogen Ur Leukocyte Esterase Urine WBC (Auto) Urine RBC (Auto) U Epithel Cells (Auto) Urine Mucus
[2017-03-18] MEDS: LASIX IV SCH (10:58)
[2017-03-18] MEDS: CORGARD PO SCH (10:58)
--- NOTE | 2017-03-18 11:47 | Progress Note ---
Assessment and Plan Assessment and plan: 1. Decompensated cirrhosis Secondary to hepatitis C and alcohol abuse Continue diuretics, beta elizabeth, lactulose 2. Hepatic encephalopathy On lactulose and rifaximin Ammonia trended down initially, but went up again Lactulose dose increased GI following also and adjusting dose 3. Ascites/anasarca Paracentesis unable to be obtained as no significant ascites identified ECHO revealed preserved EF, so peripheral edema/anasarca secondary to hyperalbuminemia Continue Lasix and spironolactone Monitor I's and O's 4. Chronic hepatitis C 5. Alcohol abuse [facility] protocol Status post banana bag Started on by mouth thiamine/folic acid 6. Recent history of cocaine use Counseled, but questionable comprehension; discussed with daughter 7. Pancytopenia Due to decompensated cirrhosis/alcohol and drug use Monitor closely Consider transfusion if necessary 8. Coagulopathy Due to decompensated cirrhosis Monitor INR Treat if needed 9. Jaundice/elevated LFTs Due to decompensated cirrhosis and continued alcohol use 10. Severe protein caloric malnutrition Due to nutritional deficiencies ([facility]), alcohol and drug use Dietitian consulted for supplementation 11. DVT prophylaxis SCDs. No pharmacological agent given pancytopenia/coagulopathy 12. Dispo Daughter would like placement; if not possible, home health and she will need to make arrangements to take patient at her home; [facility], since then leaving with his brother who brings him alcohol and drugs; discussing with daughter options, including hospice care, but options limited due to lack of insurance History Interval history: confused, but with no complaints daughter came early in the morning and discussed with CM about d/c options Hospitalist Physical - Constitutional Vitals: Temp Pulse Resp BP Pulse Ox 98.7 F 66 18 102/58 94 03/18/17 07:57 03/18/17 10:58 03/18/17 09:44 03/18/17 10:58 03/18/17 09:44 General appearance: Present: no acute distress - EENT Eyes: Present: PERRL, EOM intact, scleral icterus. Absent: conjunctival injection - Neck Neck: Present: supple. Absent: enlarged thyroid, masses or JVD - Respiratory Respiratory effort: normal Respiratory: bilateral: CTA, negative: rhonchi, wheezing - Cardiovascular Rhythm: regular Heart Sounds: Present: S1 & S2. Absent: systolic murmur - Extremities Extremities: no ischemia - Abdominal General gastrointestinal: soft, non-tender, non-distended, normal bowel sounds - Psychiatric Psychiatric: other (confused) - Neurologic Neurologic: moves all extremities Results - Labs CBC & Chem 7: 03/18/17 04:39 03/18/17 04:39 Labs: Laboratory Last Values WBC 3.6 K/mm3 (4.5-11.0) L 03/18/17 04:39 RBC 3.83 M/mm3 (3.65-5.03) 03/18/17 04:39 Hgb 11.7 gm/dl (11.8-15.2) L 03/18/17 04:39 Hct 34.5 % (35.5-45.6) L 03/18/17 04:39 MCV 90 fl (84-94) 03/18/17 04:39 MCH 30 pg (28-32) 03/18/17 04:39 MCHC 34 % (32-34) 03/18/17 04:39 RDW 20.3 % (13.2-15.2) H 03/18/17 04:39 Plt Count 56 K/mm3 (140-440) L 03/18/17 04:39 Lymph % (Auto) 28.7 % (13.4-35.0) 03/18/17 04:39 [place] % (Auto) 13.5 % (0.0-7.3) H 03/18/17 04:39 Eos % (Auto) 10.2 % (0.0-4.3) H 03/18/17 04:39 Baso % (Auto) 0.5 % (0.0-1.8) 03/18/17 04:39 Lymph # 1.0 K/mm3 (1.2-5.4) L 03/18/17 04:39 [place] # 0.5 K/mm3 (0.0-0.8) 03/18/17 04:39 Eos # 0.4 K/mm3 (0.0-0.4) 03/18/17 04:39 Baso # 0.0 K/mm3 (0.0-0.1) 03/18/17 04:39 Add Manual Diff Complete 03/12/17 18:02 Total Counted 100 03/12/17 18:02 Seg Neutrophils % 47.1 % (40.0-70.0) 03/18/17 04:39 Seg Neuts % (Manual) 49.0 % (40.0-70.0) 03/12/17 18:02 Band Neutrophils % 0 % 03/12/17 18:02 Lymphocytes % (Manual) 27.0 % (13.4-35.0) 03/12/17 18:02 Reactive Lymphs % (Man) 0 % 03/12/17 18:02 Monocytes % (Manual) 11.0 % (0.0-7.3) H 03/12/17 18:02 Eosinophils % (Manual) 12.0 % (0.0-4.3) H 03/12/17 18:02 Basophils % (Manual) 1.0 % (0.0-1.8) 03/12/17 18:02 Metamyelocytes % 0 % 03/12/17 18:02 Myelocytes % 0 % 03/12/17 18:02 Promyelocytes % 0 % 03/12/17 18:02 Blast Cells % 0 % 03/12/17 18:02 Nucleated RBC % Not Reportable 03/12/17 18:02 Seg Neutrophils # 1.7 K/mm3 (1.8-7.7) L 03/18/17 04:39 Seg Neutrophils # Man 1.9 K/mm3 (1.8-7.7) 03/12/17 18:02 Band Neutrophils # 0.0 K/mm3 03/12/17 18:02 Lymphocytes # (Manual) 1.1 K/mm3 (1.2-5.4) L 03/12/17 18:02 Abs React Lymphs (Man) 0.0 K/mm3 03/12/17 18:02 Monocytes # (Manual) 0.4 K/mm3 (0.0-0.8) 03/12/17 18:02 Eosinophils # (Manual) 0.5 K/mm3 (0.0-0.4) H 03/12/17 18:02 Basophils # (Manual) 0.0 K/mm3 (0.0-0.1) 03/12/17 18:02 Metamyelocytes # 0.0 K/mm3 03/12/17 18:02 Myelocytes # 0.0 K/mm3 03/12/17 18:02 Promyelocytes # 0.0 K/mm3 03/12/17 18:02 Blast Cells # 0.0 K/mm3 03/12/17 18:02 WBC Morphology Not Reportable 03/12/17 18:02 Hypersegmented Neuts Not Reportable 03/12/17 18:02 Hyposegmented Neuts Not Reportable 03/12/17 18:02 Hypogranular Neuts Not Reportable 03/12/17 18:02 Smudge Cells Not Reportable 03/12/17 18:02 Toxic Granulation Not Reportable 03/12/17 18:02 Toxic Vacuolation Not Reportable 03/12/17 18:02 Dohle Bodies Not Reportable 03/12/17 18:02 Pelger-Huet Anomaly Not Reportable 03/12/17 18:02 Joe Rods Not Reportable 03/12/17 18:02 Platelet Estimate Appears decreased 03/12/17 18:02 Clumped Platelets Not Reportable 03/12/17 18:02 Plt Clumps, EDTA Not Reportable 03/12/17 18:02 Large Platelets Not Reportable 03/12/17 18:02 Giant Platelets Not Reportable 03/12/17 18:02 Platelet Satelliting Not Reportable 03/12/17 18:02 Plt Morphology Comment Not Reportable 03/12/17 18:02 RBC Morphology Not Reportable 03/12/17 18:02 Dimorphic RBCs Not Reportable 03/12/17 18:02 Polychromasia Not Reportable 03/12/17 18:02 Hypochromasia 1+ 03/12/17 18:02 Poikilocytosis 1+ 03/12/17 18:02 Anisocytosis 1+ 03/12/17 18:02 Microcytosis Not Reportable 03/12/17 18:02 Macrocytosis Not Reportable 03/12/17 18:02 Spherocytes Not Reportable 03/12/17 18:02 Pappenheimer Bodies Not Reportable 03/12/17 18:02 Sickle Cells Not Reportable 03/12/17 18:02 Target Cells Not Reportable 03/12/17 18:02 Tear Drop Cells Not Reportable 03/12/17 18:02 Ovalocytes Not Reportable 03/12/17 18:02 Helmet Cells Not Reportable 03/12/17 18:02 Car[place] Bodies Not Reportable 03/12/17 18:02 [place] Rings Not Reportable 03/12/17 18:02 [place] Cells Not Reportable 03/12/17 18:02 Bite Cells Not Reportable 03/12/17 18:02 Crenated Cell Not Reportable 03/12/17 18:02 Elliptocytes Not Reportable 03/12/17 18:02 Acanthocytes (Spur) Not Reportable 03/12/17 18:02 Rouleaux Not Reportable 03/12/17 18:02 Hemoglobin C Crystals Not Reportable 03/12/17 18:02 Schistocytes Not Reportable 03/12/17 18:02 Malaria parasites Not Reportable 03/12/17 18:02 Alex Bodies Not Reportable 03/12/17 18:02 Hem Pathologist Commnt No 03/12/17 18:02 PT 19.6 Sec. (12.2-14.9) H 03/18/17 04:39 INR 1.58 (0.87-1.13) H 03/18/17 04:39 APTT 31.5 Sec. (24.2-36.6) 03/12/17 18:25 Thrombin Time 18.7 Sec. (15.1-19.6) 03/12/17 18:25 Sodium 139 mmol/L (137-145) 03/18/17 04:39 Potassium 4.1 mmol/L (3.6-5.0) 03/18/17 04:39 Chloride 107.3 mmol/L (98-107) H 03/18/17 04:39 Carbon Dioxide 21 mmol/L (22-30) L 03/18/17 04:39 Anion Gap 15 mmol/L 03/18/17 04:39 BUN 12 mg/dL (9-20) 03/18/17 04:39 Creatinine 0.6 mg/dL (0.8-1.5) L 03/18/17 04:39 Estimated GFR > 60 ml/min 03/18/17 04:39 BUN/Creatinine Ratio 20 % 03/18/17 04:39 Glucose 103 mg/dL (75-100) H 03/18/17 04:39 POC Glucose 126 (70-105) H 03/12/17 18:41 Calcium 7.2 mg/dL (8.4-10.2) L 03/18/17 04:39 Magnesium 1.70 mg/dL (1.7-2.3) 03/16/17 05:42 Total Bilirubin 3.90 mg/dL (0.1-1.2) H 03/18/17 04:39 Direct Bilirubin 3.1 mg/dL (0-0.2) H 03/13/17 04:59 Indirect Bilirubin 1.9 mg/dL 03/13/17 04:59 AST 114 units/L (5-40) H 03/18/17 04:39 ALT 78 units/L (7-56) H 03/18/17 04:39 Alkaline Phosphatase 242 units/L (35-129) H 03/18/17 04:39 Ammonia 220.0 umol/L (25-60) H 03/18/17 04:39 Troponin T < 0.010 ng/mL (0.00-0.029) 03/12/17 18:02 NT-Pro-B Natriuret Pep 163.7 pg/mL (0-900) 03/12/17 18:02 Total Protein 5.2 g/dL (6.3-8.2) L 03/18/17 04:39 Albumin 1.8 g/dL (3.9-5) L 03/18/17 04:39 Albumin/Globulin Ratio 0.5 % 03/18/17 04:39 TSH 3.260 mlU/mL (0.270-4.200) 03/12/17 20:10 Urine Color Patricia (Yellow) 03/17/17 09:19 Urine Turbidity Clear (Clear) 03/17/17 09:19 Urine pH 6.0 (5.0-7.0) 03/17/17 09:19 Ur Specific [place] 1.021 (1.003-1.030) 03/17/17 09:19 Urine Protein <15 mg/dl mg/dL (Negative) 03/17/17 09:19 Urine Glucose (UA) Neg mg/dL (Negative) 03/17/17 09:19 Urine Ketones Neg mg/dL (Negative) 03/17/17 09:19 Urine Blood Neg (Negative) 03/17/17 09:19 Urine Nitrite Neg (Negative) 03/17/17 09:19 Urine Bilirubin Neg (Negative) 03/17/17 09:19 Urine Urobilinogen 2.0 mg/dL (<2.0) 03/17/17 09:19 Ur Leukocyte Esterase Lg (Negative) 03/17/17 09:19 Urine WBC (Auto) > 182.0 /HPF (0.0-6.0) H 03/17/17 09:19 Urine RBC (Auto) 7.0 /HPF (0.0-6.0) 03/17/17 09:19 U Epithel Cells (Auto) 1.0 /HPF (0-13.0) 03/17/17 09:19 Urine Mucus 1+ /HPF 03/17/17 09:19 Plasma/Serum Alcohol < 0.01 gm% (0-0.07) 03/12/17 20:10 Hepatitis A IgM Ab Non-reactive (NonReactive) 03/14/17 08:50 Hep Bs Antigen Non-reactive (Negative) 03/14/17 08:50 Hep B Core IgM Ab Non-reactive (NonReactive) 03/14/17 08:50 Hepatitis C Antibody Reactive (NonReactive) A 03/14/17 08:50
[2017-03-18] MEDS: CEPHULAC PO SCH ×3 (13:21→20:21)
[2017-03-18] MEDS: CEPHULAC PR SCH ×2 (16:29→22:05)
--- NOTE | 2017-03-19 09:56 | Gastroenterology Progress Note ---
Assessment and Plan 1.decompensated cirrhosis 2.hepatic encephalopathy 3.ascites 4.alcohol abuse 5.hepatitis C -ammonia level 141- improving -continue oral and rectal lactulose for goal of 2 to 3 BMs daily -continue Xifaxan -avoid sedating medications -monitor/tx alcohol withdrawal -continue diuretics and beta elizabeth -continue supportive care -will follow Subjective Date of service: 03/19/17 Principal diagnosis: Hep Encephalopathy Interval history: Patient resting in bed. No acute distress. BM x 1 yesterday. Objective - Constitutional Vitals: Temp Pulse Resp BP Pulse Ox 97.8 F 69 18 112/61 96 03/19/17 03:59 03/19/17 03:59 03/19/17 03:59 03/19/17 03:59 03/19/17 03:59 General appearance: no acute distress - EENT Eyes: PERRL, EOM intact ENT: hearing intact - Respiratory Respiratory: bilateral: CTA (anterior) - Cardiovascular Rhythm: regular Heart Sounds: Present: S1 & S2 - Extremities Extremity abnormal: edema - Gastrointestinal General gastrointestinal: Present: soft, non-tender, non-distended, normal bowel sounds - Integumentary Integumentary: Present: warm, dry - Labs CBC & Chem 7: 03/18/17 04:39 03/18/17 04:39 Labs: Laboratory Results - last 24 hr 03/19/17 05:06 Ammonia 141.0 H
[2017-03-19] MEDS: CEPHULAC PO SCH ×3 (10:43→20:48)
[2017-03-19] MEDS: XIFAXAN PO SCH ×2 (10:43→21:10)
[2017-03-19] MEDS: LIBRIUM PO SCH ×3 (10:43→18:22)
[2017-03-19] MEDS: CORGARD PO SCH (10:43)
[2017-03-19] MEDS: FOLVITE PO SCH (10:43)
[2017-03-19] MEDS: ALDACTONE PO SCH (10:44)
[2017-03-19] MEDS: LASIX IV SCH (10:44)
[2017-03-19] MEDS: PROTONIX PO SCH (10:44)
[2017-03-19] MEDS: VITAMIN B-1 PO SCH (10:45)
[2017-03-19] MEDS: CEPHULAC PR SCH (14:07)
--- NOTE | 2017-03-19 19:51 | Progress Note ---
Assessment and Plan Assessment and plan: 1. Decompensated cirrhosis Secondary to hepatitis C and alcohol abuse Continue diuretics, beta elizabeth, lactulose 2. Hepatic encephalopathy On lactulose and rifaximin Lactulose dose increased and [place] added Ammonia trending down now, monitoring 3. Ascites/anasarca Paracentesis unable to be obtained as no significant ascites identified ECHO revealed preserved EF, so peripheral edema/anasarca secondary to hyperalbuminemia Continue Lasix and spironolactone Monitor I's and O's 4. Chronic hepatitis C 5. Alcohol abuse [facility] protocol Status post banana bag Started on by mouth thiamine/folic acid 6. Recent history of cocaine use Counseled, but questionable comprehension; discussed with daughter 7. Pancytopenia Due to decompensated cirrhosis/alcohol and drug use Monitor closely Consider transfusion if necessary 8. Coagulopathy Due to decompensated cirrhosis Monitor INR Treat if needed 9. Jaundice/elevated LFTs Due to decompensated cirrhosis and continued alcohol use 10. Severe protein caloric malnutrition Due to nutritional deficiencies (in and out of senior care), alcohol and drug use Dietitian consulted for supplementation 11. DVT prophylaxis SCDs. No pharmacological agent given pancytopenia/coagulopathy 12. Dispo Daughter would like placement; if not possible, home health and she will need to make arrangements to take patient at her home; patient released from senior care 2- 3 weeks ago, since then leaving with his brother who brings him alcohol and drugs; discussing with daughter options, including hospice care, but options limited due to lack of insurance Rediscussed with daughter who insists on placement, but patient unfunded; discussed with CM also History Interval history: ammonia level decreased, but still confused Hospitalist Physical - Constitutional Vitals: Temp Pulse Resp BP Pulse Ox 97.8 F 65 18 112/59 96 03/19/17 03:59 03/19/17 12:00 03/19/17 03:59 03/19/17 10:44 03/19/17 03:59 General appearance: Present: no acute distress - EENT Eyes: Present: PERRL, EOM intact, scleral icterus. Absent: conjunctival injection - Neck Neck: Present: supple, normal ROM. Absent: masses or JVD - Respiratory Respiratory effort: normal Respiratory: bilateral: CTA, negative: rhonchi, wheezing - Cardiovascular Rhythm: regular Heart Sounds: Present: S1 & S2. Absent: systolic murmur - Extremities Extremities: no ischemia - Abdominal General gastrointestinal: soft, non-tender, non-distended, normal bowel sounds - Psychiatric Psychiatric: other (confused) - Neurologic Neurologic: moves all extremities Results - Labs CBC & Chem 7: 03/18/17 04:39 03/18/17 04:39 Labs: Laboratory Last Values WBC 3.6 K/mm3 (4.5-11.0) L 03/18/17 04:39 RBC 3.83 M/mm3 (3.65-5.03) 03/18/17 04:39 Hgb 11.7 gm/dl (11.8-15.2) L 03/18/17 04:39 Hct 34.5 % (35.5-45.6) L 03/18/17 04:39 MCV 90 fl (84-94) 03/18/17 04:39 MCH 30 pg (28-32) 03/18/17 04:39 MCHC 34 % (32-34) 03/18/17 04:39 RDW 20.3 % (13.2-15.2) H 03/18/17 04:39 Plt Count 56 K/mm3 (140-440) L 03/18/17 04:39 Lymph % (Auto) 28.7 % (13.4-35.0) 03/18/17 04:39 [place] % (Auto) 13.5 % (0.0-7.3) H 03/18/17 04:39 Eos % (Auto) 10.2 % (0.0-4.3) H 03/18/17 04:39 Baso % (Auto) 0.5 % (0.0-1.8) 03/18/17 04:39 Lymph # 1.0 K/mm3 (1.2-5.4) L 03/18/17 04:39 [place] # 0.5 K/mm3 (0.0-0.8) 03/18/17 04:39 Eos # 0.4 K/mm3 (0.0-0.4) 03/18/17 04:39 Baso # 0.0 K/mm3 (0.0-0.1) 03/18/17 04:39 Add Manual Diff Complete 03/12/17 18:02 Total Counted 100 03/12/17 18:02 Seg Neutrophils % 47.1 % (40.0-70.0) 03/18/17 04:39 Seg Neuts % (Manual) 49.0 % (40.0-70.0) 03/12/17 18:02 Band Neutrophils % 0 % 03/12/17 18:02 Lymphocytes % (Manual) 27.0 % (13.4-35.0) 03/12/17 18:02 Reactive Lymphs % (Man) 0 % 03/12/17 18:02 Monocytes % (Manual) 11.0 % (0.0-7.3) H 03/12/17 18:02 Eosinophils % (Manual) 12.0 % (0.0-4.3) H 03/12/17 18:02 Basophils % (Manual) 1.0 % (0.0-1.8) 03/12/17 18:02 Metamyelocytes % 0 % 03/12/17 18:02 Myelocytes % 0 % 03/12/17 18:02 Promyelocytes % 0 % 03/12/17 18:02 Blast Cells % 0 % 03/12/17 18:02 Nucleated RBC % Not Reportable 03/12/17 18:02 Seg Neutrophils # 1.7 K/mm3 (1.8-7.7) L 03/18/17 04:39 Seg Neutrophils # Man 1.9 K/mm3 (1.8-7.7) 03/12/17 18:02 Band Neutrophils # 0.0 K/mm3 03/12/17 18:02 Lymphocytes # (Manual) 1.1 K/mm3 (1.2-5.4) L 03/12/17 18:02 Abs React Lymphs (Man) 0.0 K/mm3 03/12/17 18:02 Monocytes # (Manual) 0.4 K/mm3 (0.0-0.8) 03/12/17 18:02 Eosinophils # (Manual) 0.5 K/mm3 (0.0-0.4) H 03/12/17 18:02 Basophils # (Manual) 0.0 K/mm3 (0.0-0.1) 03/12/17 18:02 Metamyelocytes # 0.0 K/mm3 03/12/17 18:02 Myelocytes # 0.0 K/mm3 03/12/17 18:02 Promyelocytes # 0.0 K/mm3 03/12/17 18:02 Blast Cells # 0.0 K/mm3 03/12/17 18:02 WBC Morphology Not Reportable 03/12/17 18:02 Hypersegmented Neuts Not Reportable 03/12/17 18:02 Hyposegmented Neuts Not Reportable 03/12/17 18:02 Hypogranular Neuts Not Reportable 03/12/17 18:02 Smudge Cells Not Reportable 03/12/17 18:02 Toxic Granulation Not Reportable 03/12/17 18:02 Toxic Vacuolation Not Reportable 03/12/17 18:02 Dohle Bodies Not Reportable 03/12/17 18:02 Pelger-Huet Anomaly Not Reportable 03/12/17 18:02 Joe Rods Not Reportable 03/12/17 18:02 Platelet Estimate Appears decreased 03/12/17 18:02 Clumped Platelets Not Reportable 03/12/17 18:02 Plt Clumps, EDTA Not Reportable 03/12/17 18:02 Large Platelets Not Reportable 03/12/17 18:02 Giant Platelets Not Reportable 03/12/17 18:02 Platelet Satelliting Not Reportable 03/12/17 18:02 Plt Morphology Comment Not Reportable 03/12/17 18:02 RBC Morphology Not Reportable 03/12/17 18:02 Dimorphic RBCs Not Reportable 03/12/17 18:02 Polychromasia Not Reportable 03/12/17 18:02 Hypochromasia 1+ 03/12/17 18:02 Poikilocytosis 1+ 03/12/17 18:02 Anisocytosis 1+ 03/12/17 18:02 Microcytosis Not Reportable 03/12/17 18:02 Macrocytosis Not Reportable 03/12/17 18:02 Spherocytes Not Reportable 03/12/17 18:02 Pappenheimer Bodies Not Reportable 03/12/17 18:02 Sickle Cells Not Reportable 03/12/17 18:02 Target Cells Not Reportable 03/12/17 18:02 Tear Drop Cells Not Reportable 03/12/17 18:02 Ovalocytes Not Reportable 03/12/17 18:02 Helmet Cells Not Reportable 03/12/17 18:02 Car[place] Bodies Not Reportable 03/12/17 18:02 [place] Rings Not Reportable 03/12/17 18:02 [place] Cells Not Reportable 03/12/17 18:02 Bite Cells Not Reportable 03/12/17 18:02 Crenated Cell Not Reportable 03/12/17 18:02 Elliptocytes Not Reportable 03/12/17 18:02 Acanthocytes (Spur) Not Reportable 03/12/17 18:02 Rouleaux Not Reportable 03/12/17 18:02 Hemoglobin C Crystals Not Reportable 03/12/17 18:02 Schistocytes Not Reportable 03/12/17 18:02 Malaria parasites Not Reportable 03/12/17 18:02 Alex Bodies Not Reportable 03/12/17 18:02 Hem Pathologist Commnt No 03/12/17 18:02 PT 19.6 Sec. (12.2-14.9) H 03/18/17 04:39 INR 1.58 (0.87-1.13) H 03/18/17 04:39 APTT 31.5 Sec. (24.2-36.6) 03/12/17 18:25 Thrombin Time 18.7 Sec. (15.1-19.6) 03/12/17 18:25 Sodium 139 mmol/L (137-145) 03/18/17 04:39 Potassium 4.1 mmol/L (3.6-5.0) 03/18/17 04:39 Chloride 107.3 mmol/L (98-107) H 03/18/17 04:39 Carbon Dioxide 21 mmol/L (22-30) L 03/18/17 04:39 Anion Gap 15 mmol/L 03/18/17 04:39 BUN 12 mg/dL (9-20) 03/18/17 04:39 Creatinine 0.6 mg/dL (0.8-1.5) L 03/18/17 04:39 Estimated GFR > 60 ml/min 03/18/17 04:39 BUN/Creatinine Ratio 20 % 03/18/17 04:39 Glucose 103 mg/dL (75-100) H 03/18/17 04:39 POC Glucose 126 (70-105) H 03/12/17 18:41 Calcium 7.2 mg/dL (8.4-10.2) L 03/18/17 04:39 Magnesium 1.70 mg/dL (1.7-2.3) 03/16/17 05:42 Total Bilirubin 3.90 mg/dL (0.1-1.2) H 03/18/17 04:39 Direct Bilirubin 3.1 mg/dL (0-0.2) H 03/13/17 04:59 Indirect Bilirubin 1.9 mg/dL 03/13/17 04:59 AST 114 units/L (5-40) H 03/18/17 04:39 ALT 78 units/L (7-56) H 03/18/17 04:39 Alkaline Phosphatase 242 units/L (35-129) H 03/18/17 04:39 Ammonia 141.0 umol/L (25-60) H 03/19/17 05:06 Troponin T < 0.010 ng/mL (0.00-0.029) 03/12/17 18:02 NT-Pro-B Natriuret Pep 163.7 pg/mL (0-900) 03/12/17 18:02 Total Protein 5.2 g/dL (6.3-8.2) L 03/18/17 04:39 Albumin 1.8 g/dL (3.9-5) L 03/18/17 04:39 Albumin/Globulin Ratio 0.5 % 03/18/17 04:39 TSH 3.260 mlU/mL (0.270-4.200) 03/12/17 20:10 Urine Color Patricia (Yellow) 03/17/17 09:19 Urine Turbidity Clear (Clear) 03/17/17 09:19 Urine pH 6.0 (5.0-7.0) 03/17/17 09:19 Ur Specific [place] 1.021 (1.003-1.030) 03/17/17 09:19 Urine Protein <15 mg/dl mg/dL (Negative) 03/17/17 09:19 Urine Glucose (UA) Neg mg/dL (Negative) 03/17/17 09:19 Urine Ketones Neg mg/dL (Negative) 03/17/17 09:19 Urine Blood Neg (Negative) 03/17/17 09:19 Urine Nitrite Neg (Negative) 03/17/17 09:19 Urine Bilirubin Neg (Negative) 03/17/17 09:19 Urine Urobilinogen 2.0 mg/dL (<2.0) 03/17/17 09:19 Ur Leukocyte Esterase Lg (Negative) 03/17/17 09:19 Urine WBC (Auto) > 182.0 /HPF (0.0-6.0) H 03/17/17 09:19 Urine RBC (Auto) 7.0 /HPF (0.0-6.0) 03/17/17 09:19 U Epithel Cells (Auto) 1.0 /HPF (0-13.0) 03/17/17 09:19 Urine Mucus 1+ /HPF 03/17/17 09:19 Plasma/Serum Alcohol < 0.01 gm% (0-0.07) 03/12/17 20:10 Hepatitis A IgM Ab Non-reactive (NonReactive) 03/14/17 08:50 Hep Bs Antigen Non-reactive (Negative) 03/14/17 08:50 Hep B Core IgM Ab Non-reactive (NonReactive) 03/14/17 08:50 Hepatitis C Antibody Reactive (NonReactive) A 03/14/17 08:50
[2017-03-20 05:03] LABS: Alanine Aminotransferase 65 units/L (7-56); Albumin 1.7 g/dL (3.9-5); Albumin/Globulin Ratio 0.5 %; Alkaline Phosphatase 222 units/L (35-129); Anion Gap 13 mmol/L; BUN/Creatinine Ratio 21; Blood Urea Nitrogen 15 mg/dL (9-20); Calcium 7.5 mg/dL (8.4-10.2); Carbon Dioxide 21 mmol/L (22-30); Chloride 104.9 mmol/L (98-107); Glucose 109 mg/dL (75-100); Potassium 4.2 mmol/L (3.6-5.0); Sodium 135 mmol/L (137-145); Total Protein 5.3 g/dL (6.3-8.2)
[2017-03-20] MEDS: LIBRIUM PO SCH ×4 (08:00→21:32)
[2017-03-20] MEDS: CEPHULAC PO SCH ×4 (09:00→21:35)
[2017-03-20] MEDS: XIFAXAN PO SCH ×2 (09:34→21:35)
[2017-03-20] MEDS: FOLVITE PO SCH (09:34)
[2017-03-20] MEDS: PROTONIX PO SCH (09:34)
[2017-03-20] MEDS: ALDACTONE PO SCH (09:34)
[2017-03-20] MEDS: VITAMIN B-1 PO SCH (09:34)
[2017-03-20] MEDS: LASIX IV SCH (09:35)
[2017-03-20] MEDS: CORGARD PO SCH (09:35)
--- NOTE | 2017-03-20 11:08 | Gastroenterology Progress Note ---
Assessment and Plan 1.decompensated cirrhosis 2.hepatic encephalopathy 3.ascites 4.alcohol abuse 5.hepatitis C -ammonia level 155-trending up -will increase frequency of oral lactulose to QID and continue rectal dosing of lactulose for goal of 2 to 3 BMs daily -continue Xifaxan -avoid sedating medications -monitor/tx alcohol withdrawal -continue diuretics and beta elizabeth -continue supportive care -will follow Subjective Date of service: 03/20/17 Principal diagnosis: Hep Encephalopathy Interval history: Patient resting in bed. No acute distress. BM x 1 last night and BM x 1 this am per nursing. Objective - Constitutional Vitals: Temp Pulse Resp BP Pulse Ox 98.1 F 64 20 124/77 96 03/20/17 10:22 03/20/17 10:22 03/20/17 10:22 03/20/17 10:22 03/20/17 10:22 General appearance: no acute distress - Respiratory Respiratory: bilateral: CTA (anterior) - Cardiovascular Rhythm: regular Heart Sounds: Present: S1 & S2 - Gastrointestinal General gastrointestinal: Present: soft, non-tender, non-distended, normal bowel sounds - Integumentary Integumentary: Present: warm, dry - Labs CBC & Chem 7: 03/18/17 04:39 03/20/17 04:07 Labs: Laboratory Results - last 24 hr 03/20/17 03/20/17 04:07 04:07 Sodium 135 L Potassium 4.2 Chloride 104.9 Carbon Dioxide 21 L Anion Gap 13 BUN 15 Creatinine 0.7 L Estimated GFR > 60 BUN/Creatinine Ratio 21 Glucose 109 H Calcium 7.5 L Total Bilirubin 3.80 H AST 92 H ALT 65 H Alkaline Phosphatase 222 H Ammonia 155.0 H Total Protein 5.3 L Albumin 1.7 L Albumin/Globulin Ratio 0.5
[2017-03-20] MEDS: CEPHULAC PR SCH ×3 (15:45→21:34)
[2017-03-20] MEDS ORDERED: LIBRIUM PO SCH ×2 (17:20→22:00)
--- NOTE | 2017-03-20 17:25 | Progress Note ---
Assessment and Plan Assessment and plan: 1. Decompensated cirrhosis Secondary to hepatitis C and alcohol abuse Continue diuretics, beta elizabeth, lactulose 2. Hepatic encephalopathy On lactulose and rifaximin Ammonia level labile, going up and down, for the last 48 hours in 140-150 range Lactulose dose increased, CO added and doses/frequency readjusted today GI following also 3. Ascites/anasarca Paracentesis unable to be obtained as no significant ascites identified ECHO revealed preserved EF, so peripheral edema/anasarca secondary to hyperalbuminemia Continue Lasix and spironolactone Monitor I's and O's 4. Chronic hepatitis C 5. Alcohol abuse [facility] protocol Status post banana bag Taper Librium Started on by mouth thiamine/folic acid 6. Recent history of cocaine use Counseled, but questionable comprehension; discussed with daughter 7. Pancytopenia Due to decompensated cirrhosis/alcohol and drug use Monitor closely Consider transfusion if necessary 8. Coagulopathy Due to decompensated cirrhosis Monitor INR Treat if needed 9. Jaundice/elevated LFTs Due to decompensated cirrhosis and continued alcohol use 10. Severe protein caloric malnutrition Due to nutritional deficiencies (in and out of halfway), alcohol and drug use Dietitian consulted for supplementation 11. DVT prophylaxis SCDs. No pharmacological agent given pancytopenia/coagulopathy 12. Dispo Daughter would like placement; if not possible, home health and she will need to make arrangements to take patient at her home; patient released from halfway 2- 3 weeks ago, since then leaving with his brother who brings him alcohol and drugs; discussing with daughter options, including hospice care, but options limited due to lack of insurance Rediscussed with daughter who insists on placement, but patient unfunded; discussed with CM also History Interval history: confused, with no specific complaints Hospitalist Physical - Constitutional Vitals: Temp Pulse Resp BP Pulse Ox 98.5 F 65 22 137/68 96 03/20/17 16:07 03/20/17 16:07 03/20/17 16:07 03/20/17 16:07 03/20/17 16:07 General appearance: Present: no acute distress - EENT Eyes: Present: PERRL, EOM intact, scleral icterus. Absent: conjunctival injection - Neck Neck: Present: supple. Absent: enlarged thyroid, masses or JVD - Respiratory Respiratory effort: normal Respiratory: bilateral: CTA, negative: rhonchi, wheezing - Cardiovascular Rhythm: regular Heart Sounds: Present: S1 & S2. Absent: systolic murmur - Extremities Extremities: no ischemia - Abdominal General gastrointestinal: soft, non-tender, non-distended, normal bowel sounds - Psychiatric Psychiatric: no intact judgment & insight, no memory intact, other (confused) - Neurologic Neurologic: moves all extremities Results - Labs CBC & Chem 7: 03/18/17 04:39 03/20/17 04:07 Labs: Laboratory Last Values WBC 3.6 K/mm3 (4.5-11.0) L 03/18/17 04:39 RBC 3.83 M/mm3 (3.65-5.03) 03/18/17 04:39 Hgb 11.7 gm/dl (11.8-15.2) L 03/18/17 04:39 Hct 34.5 % (35.5-45.6) L 03/18/17 04:39 MCV 90 fl (84-94) 03/18/17 04:39 MCH 30 pg (28-32) 03/18/17 04:39 MCHC 34 % (32-34) 03/18/17 04:39 RDW 20.3 % (13.2-15.2) H 03/18/17 04:39 Plt Count 56 K/mm3 (140-440) L 03/18/17 04:39 Lymph % (Auto) 28.7 % (13.4-35.0) 03/18/17 04:39 [place] % (Auto) 13.5 % (0.0-7.3) H 03/18/17 04:39 Eos % (Auto) 10.2 % (0.0-4.3) H 03/18/17 04:39 Baso % (Auto) 0.5 % (0.0-1.8) 03/18/17 04:39 Lymph # 1.0 K/mm3 (1.2-5.4) L 03/18/17 04:39 [place] # 0.5 K/mm3 (0.0-0.8) 03/18/17 04:39 Eos # 0.4 K/mm3 (0.0-0.4) 03/18/17 04:39 Baso # 0.0 K/mm3 (0.0-0.1) 03/18/17 04:39 Add Manual Diff Complete 03/12/17 18:02 Total Counted 100 03/12/17 18:02 Seg Neutrophils % 47.1 % (40.0-70.0) 03/18/17 04:39 Seg Neuts % (Manual) 49.0 % (40.0-70.0) 03/12/17 18:02 Band Neutrophils % 0 % 03/12/17 18:02 Lymphocytes % (Manual) 27.0 % (13.4-35.0) 03/12/17 18:02 Reactive Lymphs % (Man) 0 % 03/12/17 18:02 Monocytes % (Manual) 11.0 % (0.0-7.3) H 03/12/17 18:02 Eosinophils % (Manual) 12.0 % (0.0-4.3) H 03/12/17 18:02 Basophils % (Manual) 1.0 % (0.0-1.8) 03/12/17 18:02 Metamyelocytes % 0 % 03/12/17 18:02 Myelocytes % 0 % 03/12/17 18:02 Promyelocytes % 0 % 03/12/17 18:02 Blast Cells % 0 % 03/12/17 18:02 Nucleated RBC % Not Reportable 03/12/17 18:02 Seg Neutrophils # 1.7 K/mm3 (1.8-7.7) L 03/18/17 04:39 Seg Neutrophils # Man 1.9 K/mm3 (1.8-7.7) 03/12/17 18:02 Band Neutrophils # 0.0 K/mm3 03/12/17 18:02 Lymphocytes # (Manual) 1.1 K/mm3 (1.2-5.4) L 03/12/17 18:02 Abs React Lymphs (Man) 0.0 K/mm3 03/12/17 18:02 Monocytes # (Manual) 0.4 K/mm3 (0.0-0.8) 03/12/17 18:02 Eosinophils # (Manual) 0.5 K/mm3 (0.0-0.4) H 03/12/17 18:02 Basophils # (Manual) 0.0 K/mm3 (0.0-0.1) 03/12/17 18:02 Metamyelocytes # 0.0 K/mm3 03/12/17 18:02 Myelocytes # 0.0 K/mm3 03/12/17 18:02 Promyelocytes # 0.0 K/mm3 03/12/17 18:02 Blast Cells # 0.0 K/mm3 03/12/17 18:02 WBC Morphology Not Reportable 03/12/17 18:02 Hypersegmented Neuts Not Reportable 03/12/17 18:02 Hyposegmented Neuts Not Reportable 03/12/17 18:02 Hypogranular Neuts Not Reportable 03/12/17 18:02 Smudge Cells Not Reportable 03/12/17 18:02 Toxic Granulation Not Reportable 03/12/17 18:02 Toxic Vacuolation Not Reportable 03/12/17 18:02 Dohle Bodies Not Reportable 03/12/17 18:02 Pelger-Huet Anomaly Not Reportable 03/12/17 18:02 Joe Rods Not Reportable 03/12/17 18:02 Platelet Estimate Appears decreased 03/12/17 18:02 Clumped Platelets Not Reportable 03/12/17 18:02 Plt Clumps, EDTA Not Reportable 03/12/17 18:02 Large Platelets Not Reportable 03/12/17 18:02 Giant Platelets Not Reportable 03/12/17 18:02 Platelet Satelliting Not Reportable 03/12/17 18:02 Plt Morphology Comment Not Reportable 03/12/17 18:02 RBC Morphology Not Reportable 03/12/17 18:02 Dimorphic RBCs Not Reportable 03/12/17 18:02 Polychromasia Not Reportable 03/12/17 18:02 Hypochromasia 1+ 03/12/17 18:02 Poikilocytosis 1+ 03/12/17 18:02 Anisocytosis 1+ 03/12/17 18:02 Microcytosis Not Reportable 03/12/17 18:02 Macrocytosis Not Reportable 03/12/17 18:02 Spherocytes Not Reportable 03/12/17 18:02 Pappenheimer Bodies Not Reportable 03/12/17 18:02 Sickle Cells Not Reportable 03/12/17 18:02 Target Cells Not Reportable 03/12/17 18:02 Tear Drop Cells Not Reportable 03/12/17 18:02 Ovalocytes Not Reportable 03/12/17 18:02 Helmet Cells Not Reportable 03/12/17 18:02 [place] Bodies Not Reportable 03/12/17 18:02 [place] Rings Not Reportable 03/12/17 18:02 [place] Cells Not Reportable 03/12/17 18:02 Bite Cells Not Reportable 03/12/17 18:02 Crenated Cell Not Reportable 03/12/17 18:02 Elliptocytes Not Reportable 03/12/17 18:02 Acanthocytes (Spur) Not Reportable 03/12/17 18:02 Rouleaux Not Reportable 03/12/17 18:02 Hemoglobin C Crystals Not Reportable 03/12/17 18:02 Schistocytes Not Reportable 03/12/17 18:02 Malaria parasites Not Reportable 03/12/17 18:02 Alex Bodies Not Reportable 03/12/17 18:02 Hem Pathologist Commnt No 03/12/17 18:02 PT 19.6 Sec. (12.2-14.9) H 03/18/17 04:39 INR 1.58 (0.87-1.13) H 03/18/17 04:39 APTT 31.5 Sec. (24.2-36.6) 03/12/17 18:25 Thrombin Time 18.7 Sec. (15.1-19.6) 03/12/17 18:25 Sodium 135 mmol/L (137-145) L 03/20/17 04:07 Potassium 4.2 mmol/L (3.6-5.0) 03/20/17 04:07 Chloride 104.9 mmol/L (98-107) 03/20/17 04:07 Carbon Dioxide 21 mmol/L (22-30) L 03/20/17 04:07 Anion Gap 13 mmol/L 03/20/17 04:07 BUN 15 mg/dL (9-20) 03/20/17 04:07 Creatinine 0.7 mg/dL (0.8-1.5) L 03/20/17 04:07 Estimated GFR > 60 ml/min 03/20/17 04:07 BUN/Creatinine Ratio 21 % 03/20/17 04:07 Glucose 109 mg/dL (75-100) H 03/20/17 04:07 POC Glucose 126 (70-105) H 03/12/17 18:41 Calcium 7.5 mg/dL (8.4-10.2) L 03/20/17 04:07 Magnesium 1.70 mg/dL (1.7-2.3) 03/16/17 05:42 Total Bilirubin 3.80 mg/dL (0.1-1.2) H 03/20/17 04:07 Direct Bilirubin 3.1 mg/dL (0-0.2) H 03/13/17 04:59 Indirect Bilirubin 1.9 mg/dL 03/13/17 04:59 AST 92 units/L (5-40) H 03/20/17 04:07 ALT 65 units/L (7-56) H 03/20/17 04:07 Alkaline Phosphatase 222 units/L (35-129) H 03/20/17 04:07 Ammonia 155.0 umol/L (25-60) H 03/20/17 04:07 Troponin T < 0.010 ng/mL (0.00-0.029) 03/12/17 18:02 NT-Pro-B Natriuret Pep 163.7 pg/mL (0-900) 03/12/17 18:02 Total Protein 5.3 g/dL (6.3-8.2) L 03/20/17 04:07 Albumin 1.7 g/dL (3.9-5) L 03/20/17 04:07 Albumin/Globulin Ratio 0.5 % 03/20/17 04:07 TSH 3.260 mlU/mL (0.270-4.200) 03/12/17 20:10 Urine Color [place] (Yellow) 03/17/17 09:19 Urine Turbidity Clear (Clear) 03/17/17 09:19 Urine pH 6.0 (5.0-7.0) 03/17/17 09:19 Ur Specific [place] 1.021 (1.003-1.030) 03/17/17 09:19 Urine Protein <15 mg/dl mg/dL (Negative) 03/17/17 09:19 Urine Glucose (UA) Neg mg/dL (Negative) 03/17/17 09:19 Urine Ketones Neg mg/dL (Negative) 03/17/17 09:19 Urine Blood Neg (Negative) 03/17/17 09:19 Urine Nitrite Neg (Negative) 03/17/17 09:19 Urine Bilirubin Neg (Negative) 03/17/17 09:19 Urine Urobilinogen 2.0 mg/dL (<2.0) 03/17/17 09:19 Ur Leukocyte Esterase Lg (Negative) 03/17/17 09:19 Urine WBC (Auto) > 182.0 /HPF (0.0-6.0) H 03/17/17 09:19 Urine RBC (Auto) 7.0 /HPF (0.0-6.0) 03/17/17 09:19 U Epithel Cells (Auto) 1.0 /HPF (0-13.0) 03/17/17 09:19 Urine Mucus 1+ /HPF 03/17/17 09:19 Plasma/Serum Alcohol < 0.01 gm% (0-0.07) 03/12/17 20:10 Hepatitis A IgM Ab Non-reactive (NonReactive) 03/14/17 08:50 Hep Bs Antigen Non-reactive (Negative) 03/14/17 08:50 Hep B Core IgM Ab Non-reactive (NonReactive) 03/14/17 08:50 Hepatitis C Antibody Reactive (NonReactive) A 03/14/17 08:50
[2017-03-21] MEDS: LIBRIUM PO SCH ×2 (08:02→15:42)
--- NOTE | 2017-03-21 09:38 | Gastroenterology Progress Note ---
Assessment and Plan 1.decompensated cirrhosis 2.hepatic encephalopathy 3.ascites 4.alcohol abuse 5.hepatitis C -ammonia level down to 53 this am- WNL -clinically pt is more alert, eating w/o difficulty, and w/o complaints -pt is okay to be d/c from GI standpoint on xifaxan and daily lactulose 20mg TID with titration to a goal of 2 to 3 BMs a day -continue diuretics and beta elizabeth -continue supportive care -will sign off Subjective Date of service: 03/21/17 Principal diagnosis: Hep Encephalopathy Interval history: Patient noted to be more alert this am, sitting up in bed eating breakfast. No acute distress or events overnight. Patient reports BMs x 3 yesterday and 1 this am. Objective - Constitutional Vitals: Temp Pulse Resp BP Pulse Ox 98.3 F 65 18 126/70 94 03/21/17 08:04 03/21/17 08:04 03/21/17 08:04 03/21/17 08:04 03/21/17 08:04 General appearance: no acute distress, well-nourished - EENT Eyes: PERRL, EOM intact ENT: hearing intact - Respiratory Respiratory: bilateral: CTA - Cardiovascular Rhythm: regular Heart Sounds: Present: S1 & S2 - Gastrointestinal General gastrointestinal: Present: soft, non-tender, non-distended, normal bowel sounds - Integumentary Integumentary: Present: warm, dry - Labs CBC & Chem 7: 03/18/17 04:39 03/20/17 04:07 Labs: Laboratory Results - last 24 hr 03/21/17 06:15 Ammonia 53.0
[2017-03-21] MEDS: XIFAXAN PO SCH (11:10)
[2017-03-21] MEDS: FOLVITE PO SCH (11:10)
[2017-03-21] MEDS: VITAMIN B-1 PO SCH (11:10)
[2017-03-21] MEDS: PROTONIX PO SCH (11:10)
[2017-03-21] MEDS: LASIX IV SCH (11:11)
[2017-03-21] MEDS: ALDACTONE PO SCH (11:13)
[2017-03-21] MEDS: CORGARD PO SCH (11:13)
[2017-03-21 11:14] VITALS: BP 110/68
--- NOTE | 2017-03-21 13:20 | Discharge Summary ---
Providers - Providers Date of Admission: 03/12/17 22:22 Date of discharge: 03/21/17 Attending physician: SALBADOR MAURICIO 03/13/17 06:40 Consult to Physician [CONS] Routine Consulting Provider: DANG RODRIGUEZ Reason For Exam: HYPERAMMONEMIA WITH SUSPECTED LIVER CIRRHOSIS Place consult to:: DANG RODRIGUEZ Notified:: YES Was contact made?: No Time called:: 23:14 03/14/17 08:38 Consult to Dietitian/Nutrition [CONS] Routine Physician Instructions: Reason For Exam: Reason for Consult: Malnutrition 03/18/17 11:45 Physical Therapy Evaluation and Treat [CONS] Routine Comment: Reason For Exam: consult 03/18/17 13:16 Speech Therapy Evaluation and Treat [CONS] Routine Reason For Exam: possible aspiration Primary care physician: CH[employer] WORKER Hospitalization Reason for admission: altered mental status Condition: Stable Pertinent studies: Chest x-ray Abdomen x-ray CT head Hospital course: 61 years old -Citizen Of [place] male with history of alcohol and drug abuse, as well as, hepatitis C, freed from [facility] 2-3 weeks ago, with alcohol and cocaine abuse since then , admitted for altered mental status. Found to have decompensated cirrhosis with subsequent hepatic encephalopathy, pancytopenia, coagulopathy, jaundice, elevated LFTs, malutritional. He was started on rifaximin and lactulose, along with beta elizabeth and diuretics, vitamins. On CIWA protocol for alcohol withdrawal. He improved very slowly and required lactulose dose adjustment multiple times. GI was following. Was counseled regarding importance of quitting alcohol and cocaine use, but comprehension questionable. Daughter was involved and she required placement, but not possible at this time due to lack of insurance; she agreed to take him on her care; case repairer was consulted and helped daughter with resources, applications. Advised to establish care with PCP and follow with GI. Discharge diagnoses: 1. Decompensated cirrhosis 2. Hepatic encephalopathy 3. Ascites/anasarca 4. Chronic hepatitis C 5. Alcohol abuse 6. Recent history of cocaine use 7. Pancytopenia 8. Coagulopathy 9. Jaundice/elevated LFTs 10. Severe protein caloric malnutrition Disposition: DC/[place]-06 HOME UNDER [facility] Time spent for discharge: 40 min Core Measure Documentation - Palliative Care Palliative Care/ Comfort Measures: Not Applicable - Core Measures Any of the following diagnoses?: none Exam - Physical Exam Narrative exam: Seen and examined: - Constitutional Vitals: Temp Pulse Resp BP Pulse Ox 98.3 F 65 18 110/68 94 03/21/17 08:04 03/21/17 08:04 03/21/17 08:04 03/21/17 11:13 03/21/17 08:04 General appearance: Present: no acute distress - EENT Eyes: Present: PERRL, EOM intact, scleral icterus. Absent: conjunctival injection - Neck Neck: Present: supple, normal ROM. Absent: masses or JVD - Respiratory Respiratory effort: normal Respiratory: bilateral: CTA, negative: rhonchi, wheezing - Cardiovascular Rhythm: regular Heart Sounds: Present: S1 & S2. Absent: systolic murmur - Extremities Extremities: no ischemia - Abdominal General gastrointestinal: Present: soft, non-tender, non-distended, normal bowel sounds - Musculoskeletal Musculoskeletal: generalized weakness - Neurologic Neurologic: CNII-XII intact, no focal deficits Plan Activity: advance as tolerated, fall precautions Diet: regular Special Instructions: home health RN Follow up with: PRIMARY CAREMD [Primary Care Provider] - 3-5 Days FRANKIE CHAPA MD [Staff Physician] - 7 Days Prescriptions: Folic Acid [Folvite] 1 mg PO QDAY #30 tablet Furosemide [Lasix] 20 mg PO DAILY #30 tablet Lactulose [Kristalose] 200 gm [place] QDAY PRN #30 packet PRN Reason: Encephalopathy Lactulose [Cephulac] 20 gm PO TID #90 oral.liqd Nadolol [Corgard] 20 mg PO QDAY #30 tablet Nitrofurantoin Macrocrystal [Nitrofurantoin] 100 mg PO BID #10 capsule Pantoprazole [Protonix TAB] 40 mg PO DAILY #30 tablet Rifaximin [Xifaxan] 550 mg PO BID #60 tablet Spironolactone [Aldactone] 25 mg PO QDAY #30 tablet Thiamine [Vitamin B-1] 100 mg PO QDAY #30 tablet
[2017-03-21] MEDS ORDERED: CEPHULAC PO SCH (14:00)
== END 2017-03-21 18:45 | disposition home health service (06) | DRG 441 ==
LOC: ED 16:41 → 4A 22:22 → 3A 03-20 10:12
PROVIDERS: ADMIT Internal Medicine; ATTEND Internal Medicine
DX: K72.90 Hepatic failure, unspecified without coma (principal); E43 Unspecified severe protein-calorie malnutrition; E72.20 Disorder of urea cycle metabolism, unspecified; D68.9 Coagulation defect, unspecified; D61.818 Other pancytopenia; I10 Essential (primary) hypertension; B19.20 Unspecified viral hepatitis C without hepatic coma; Y90.9 Presence of alcohol in blood, level not specified; Z68.32 Body mass index [BMI] 32.0-32.9, adult; F10.20 Alcohol dependence, uncomplicated; K70.31 Alcoholic cirrhosis of liver with ascites
CPT/HCPCS: 36415; 70450; 71010; 76705; 80048; 80053; 80074; 80320; 81001; 82140; 82962; 83735; 83880; 84443; 84484; 85007; 85025; 85027; 85610; 85670; 85730; 93005; 93010; 93306; 94760; G0480; J1940

== ENCOUNTER 2017-06-12 21:28 | Emergency (ER) | payer MEDICAID ==
[2017-06-12] MEDS ORDERED: ASPIRIN PO ONE (23:22)
[2017-06-13 00:37] LABS: Basophils % (Auto) 0.8 % (0.0-1.8); Eosinophils # (Auto) 0.4 K/mm3 (0.0-0.4); Eosinophils % (Auto) 6.5 % (0.0-4.3); Hematocrit 35.1 % (35.5-45.6); Hemoglobin 11.6 gm/dl (11.8-15.2); Lymphocytes # (Auto) 1.5 K/mm3 (1.2-5.4); Lymphocytes % (Auto) 26.3 % (13.4-35.0); Mean Corpuscular HGB Conc 33 % (32-34); Mean Corpuscular Hemoglobin 31 pg (28-32); Mean Corpuscular Volume 93 fl (84-94); Monocytes # (Auto) 0.5 K/mm3 (0.0-0.8); Monocytes % (Auto) 9.1 % (0.0-7.3); Red Blood Count 3.79 M/mm3 (3.65-5.03); Red Cell Distribution Width 19.9 % (13.2-15.2)
[2017-06-13 00:41] LABS: Platelet Count 63 K/mm3 (140-440)
[2017-06-13 00:58] LABS: Alanine Aminotransferase 73 units/L (7-56); Albumin 2.4 g/dL (3.9-5); BUN/Creatinine Ratio 20; Blood Urea Nitrogen 12 mg/dL (9-20); Calcium 7.7 mg/dL (8.4-10.2); Hemolysis Index 2
[2017-06-13 05:05] LABS: Bilirubin,Urine MOD (Negative); Blood,Urine NEG (Negative); Calcium Oxalate Crystals,Urine 3+; Color,Urine Amber (Yellow); Mucus,Urine 2+ /HPF; Nitrite,Urine NEG (Negative)
[2017-06-13 05:20] LABS: Ictotest,Urine Positive (Negative)
[2017-06-13] MEDS ORDERED: MORPHINE IV ONE (14:17)
[2017-06-13] MEDS ORDERED: ZOFRAN IV ONE (14:17)
--- NOTE | 2017-06-13 16:08 | Cat Scan Report ---
FINAL REPORT PROCEDURE: CT ANGIO CHEST TECHNIQUE: Computerized tomographic angiography of the chest was performed after the IV injection of iodinated nonionic contrast including image processing. The image data was postprocessed using 2-dimensional multiplanar reformatted (MPR) and 3-dimensional (MIP and/or volume rendered) techniques. HISTORY: chest pain COMPARISON: No prior studies are available for comparison. FINDINGS: Pulmonary outflow tract, right and left main pulmonary arteries and their proximal branches: Pulmonary outflow tract right and left main pulmonary arteries are clear. No filling defects are seen that would suggest pulmonary embolus. Peripheral branches are suboptimally visualized due to breathing motion artifact although no definite filling defects are identified that would suggest pulmonary embolus. Pericardium: No evidence of pericardial effusion. Thoracic aorta: No evidence of aneurysmal dilatation or dissection. Coronary arteries: Are not well visualized due to motion artifact. No gross abnormality is seen. Mediastinum and hilar regions: Nonspecific subcentimeter lymph nodes are visualized. No pathologically enlarged lymph nodes or masses are identified. Lung Garcia: There is a small amount of dependent atelectasis. No dense consolidations are identified. No masses or effusions are visualized. Upper abdomen: The spleen is markedly enlarged measuring 18 centimeters. The edge of the liver appears finely diffusely nodular, the left lobe is larger than the right lobe. The appearance suggest cirrhosis. No acute abnormalities are seen in the upper abdomen. There appear to be varices in the left upper quadrant. Other: No acute bony abnormalities are identified IMPRESSION: Limited exam due to breathing motion artifact. No evidence of pulmonary embolus. The appearance of the liver suggests cirrhosis. There is also splenomegaly and there appear to be varices in the left upper quadrant suggesting portal hypertension. There is mild dependent atelectasis. No dense consolidations are identified.
[2017-06-13] MEDS ORDERED: LASIX IV ONE (16:25)
[2017-06-13 17:27] VITALS: BP 115/64
[2017-06-13] MEDS ORDERED: ULTRAM PO ONE (17:47)
[2017-06-13] MEDS ORDERED: ULTRAM ONE (17:49)
--- NOTE | 2017-06-13 18:21 | Emergency Department Report ---
ED General Adult HPI - General Chief complaint: Chest Pain Stated complaint: ABD PAIN/CHEST PAIN Time Seen by Provider: 06/13/17 13:53 Source: patient, EMS Mode of arrival: Ambulatory Limitations: No Limitations - History of Present Illness Initial comments: Patient is a 61-year-old male who is presenting with chest pain and swelling. Patient states that he has chest pain just starting today he describes as achiness patient states that there is no radiation of the pain pain is 4 out of 10 in severity. Patient does have some mild shortness of breath as well as leg swelling this been for the last 2 days. Patient has a history of hepatitis C with liver failure he does take Lasix but has does not take a daily. Patient states his legs feel tight. The patient denies any fever cough nausea vomiting headache at this time. Severity scale (0 -10): 9 - Related Data Previous Rx's Medication Instructions Recorded Last Taken Type Furosemide [Lasix] 20 mg PO DAILY #30 tablet 03/21/17 Unknown Rx Lactulose [Cephulac] 20 gm PO TID #90 oral.liqd 03/21/17 Unknown Rx Lactulose [Kristalose] 200 gm [place] QDAY PRN #30 packet 03/21/17 Unknown Rx Nadolol [Corgard] 20 mg PO QDAY #30 tablet 03/21/17 Unknown Rx Nitrofurantoin Macrocrystal 100 mg PO BID #10 capsule 03/21/17 Unknown Rx [Nitrofurantoin] Folic Acid [Folvite] 1 mg PO QDAY #30 tablet 04/08/17 Unknown Rx Lactulose [Cephulac] 20 gm PO Q6HR 30 Days oral.liqd 04/08/17 Unknown Rx Levofloxacin [Levaquin TAB] 500 mg PO DAILY #3 tablet 04/08/17 Unknown Rx Nadolol [Corgard] 20 mg PO QDAY #30 tablet 04/08/17 Unknown Rx Pantoprazole [Protonix TAB] 40 mg PO DAILY #30 tablet 04/08/17 Unknown Rx Rifaximin [Xifaxan] 550 mg PO BID #60 tablet 04/08/17 Unknown Rx Spironolactone [Aldactone] 25 mg PO QDAY #30 tablet 04/08/17 Unknown Rx Thiamine [Vitamin B-1] 100 mg PO QDAY #30 tablet 11/07/17 Unknown Rx Ciprofloxacin HCl [Cipro] 500 mg PO BID #14 tablet 06/13/17 Unknown Rx Furosemide [Lasix TAB] 40 mg PO QDAY #30 tablet 06/13/17 Unknown Rx traMADol [Ultram] 50 mg PO Q6HR PRN #15 tablet 06/13/17 Unknown Rx Allergies Allergy/AdvReac Type Severity Reaction Status Date / Time No Known Allergies Allergy Unverified 10/12/13 16:07 ED Review of Systems ROS: Stated complaint: ABD PAIN/CHEST PAIN Other details as noted in HPI Comment: All other systems reviewed and negative ED Past Medical Hx - Past Medical History Previous Medical History?: Yes Hx Hypertension: Yes Hx Congestive Heart Failure: No Hx Diabetes: No Hx Liver Disease: Yes ("i don't know exactly what") Hx HIV: No - Surgical History Past Surgical History?: No - Social History Smoking Status: Never Smoker Substance Use Type: Alcohol, Cocaine - Medications Home Medications: Home Medications Medication Instructions Recorded Confirmed Last Taken Type Furosemide [Lasix] 20 mg PO DAILY #30 tablet 03/21/17 04/04/17 Unknown Rx Lactulose [Cephulac] 20 gm PO TID #90 oral.liqd 03/21/17 04/04/17 Unknown Rx Lactulose [Kristalose] 200 gm [place] QDAY PRN #30 packet 03/21/17 04/04/17 Unknown Rx Nadolol [Corgard] 20 mg PO QDAY #30 tablet 03/21/17 04/04/17 Unknown Rx Nitrofurantoin Macrocrystal 100 mg PO BID #10 capsule 03/21/17 04/04/17 Unknown Rx [Nitrofurantoin] Folic Acid [Folvite] 1 mg PO QDAY #30 tablet 04/08/17 Unknown Rx Lactulose [Cephulac] 20 gm PO Q6HR 30 Days oral.liqd 04/08/17 Unknown Rx Levofloxacin [Levaquin TAB] 500 mg PO DAILY #3 tablet 04/08/17 Unknown Rx Nadolol [Corgard] 20 mg PO QDAY #30 tablet 04/08/17 Unknown Rx Pantoprazole [Protonix TAB] 40 mg PO DAILY #30 tablet 04/08/17 Unknown Rx Rifaximin [Xifaxan] 550 mg PO BID #60 tablet 04/08/17 Unknown Rx Spironolactone [Aldactone] 25 mg PO QDAY #30 tablet 04/08/17 Unknown Rx Thiamine [Vitamin B-1] 100 mg PO QDAY #30 tablet 04/08/17 Unknown Rx Ciprofloxacin HCl [Cipro] 500 mg PO BID #14 tablet 06/13/17 Unknown Rx Furosemide [Lasix TAB] 40 mg PO QDAY #30 tablet 06/13/17 Unknown Rx traMADol [Ultram] 50 mg PO Q6HR PRN #15 tablet 06/13/17 Unknown Rx ED Physical Exam - General Limitations: No Limitations General appearance: alert, in no apparent distress - Head Head exam: Present: atraumatic, normocephalic - Eye Eye exam: Present: scleral icterus - ENT ENT exam: Present: mucous membranes moist - Neck Neck exam: Present: normal inspection - Respiratory Respiratory exam: Present: normal lung sounds bilaterally. Absent: respiratory distress, wheezes, rales, rhonchi, stridor - Cardiovascular Cardiovascular Exam: Present: regular rate, normal rhythm. Absent: systolic murmur, diastolic murmur, rubs, gallop - GI/Abdominal GI/Abdominal exam: Present: soft, tenderness (mild suprapubic tenderness), normal bowel sounds. Absent: distended, guarding, rebound - Rectal Rectal exam: Present: deferred - Extremities Exam Extremities exam: Present: other (3+ edema up to the level of the knee) - Back Exam Back exam: Present: normal inspection - Neurological Exam Neurological exam: Present: alert, oriented X3 - Psychiatric Psychiatric exam: Present: normal affect, normal mood - Skin Skin exam: Present: warm, dry, intact, normal color. Absent: rash ED Course Vital Signs 06/12/17 06/13/17 06/13/17 23:14 13:08 14:10 Temperature 97.5 F L Pulse Rate 86 79 72 Respiratory 20 18 19 Rate Blood Pressure 119/49 144/66 O2 Sat by Pulse 96 97 98 Oximetry 06/13/17 06/13/17 06/13/17 14:16 14:30 14:45 Temperature Pulse Rate 78 75 72 Respiratory 22 20 14 Rate Blood Pressure 124/59 125/70 120/63 O2 Sat by Pulse 96 95 97 Oximetry 06/13/17 06/13/17 06/13/17 15:01 15:15 15:43 Temperature Pulse Rate 72 74 Respiratory 10 L 20 Rate Blood Pressure 120/63 120/63 120/63 O2 Sat by Pulse 98 100 99 Oximetry 06/13/17 06/13/17 06/13/17 15:45 16:00 16:15 Temperature Pulse Rate 78 71 70 Respiratory 21 16 19 Rate Blood Pressure 135/69 115/64 115/64 O2 Sat by Pulse 99 98 98 Oximetry 06/13/17 06/13/17 06/13/17 16:31 16:45 17:00 Temperature Pulse Rate 78 68 88 Respiratory 14 23 15 Rate Blood Pressure 115/64 115/64 115/64 O2 Sat by Pulse 100 99 98 Oximetry 06/13/17 17:16 Temperature Pulse Rate 71 Respiratory 13 Rate Blood Pressure O2 Sat by Pulse 98 Oximetry ED Medical Decision Making - Lab Data Result diagrams: 06/12/17 00:14 06/12/17 00:14 - EKG Data -: EKG Interpreted by Me - EKG Data Interpretation: other (EKG shows sinus rhythm a rate of [address] elevation or depression axis is normal intervals and normal time of interpretation is 3 AM ) - Radiology Data Radiology results: report reviewed CTA of the chest: No pulmonary embolus Ultrasound bilateral legs negative for DVT - Medical Decision Making Patient is a 61-year-old [place] male with history of hepatitis C. Patient is supposedly on Lasix daily however he has 3 pills left and states he has not taken them everyday. Patient is fluid overloaded at this time. Patient does not have any significant fluid overload of the lungs and is not in any respiratory distress. Patient was given IV Lasix and is urinated freshly 800 mL of clear urine. Patient has negative troponin is not having any signs of acute TN. Patient does have a slight urinary tract infection which explains his suprapubic tenderness. Patient's bilirubin is chronically elevated 6.7 today but this is not abnormal for this patient. Patient is asking for admission however is not meet criteria. He wants to be admitted more for social reasons he states that he wants to stay here so the people can take care of him. Unfortunately would not be able to admit the patient is time secondary to patient not meeting criteria for admission Critical care attestation.: If time is entered above; I have spent that time in minutes in the direct care of this critically ill patient, excluding procedure time. ED Disposition Clinical Impression: Anasarca, UTI (urinary tract infection), Atypical chest pain, Elevated LFTs, Cirrhosis of liver not due to alcohol, Hepatitis C Disposition: DC-01 TO HOME OR SELFCARE Is pt being admited?: No Does the pt Need Aspirin: No Condition: Stable Instructions: Chest Pain (ED), Leg Edema (ED), Urinary Tract Infection in Men ( ED) Prescriptions: Ciprofloxacin HCl [Cipro] 500 mg PO BID #14 tablet Furosemide [Lasix TAB] 40 mg PO QDAY #30 tablet traMADol [Ultram] 50 mg PO Q6HR PRN #15 tablet PRN Reason: Pain Referrals: GO ENGLE MD [Primary Care Provider] - 3-5 Days Heart Score - HEART Score History: Slightly suspicious EKG: Normal Age: 45-65 Risk factors: No known risk factors Troponin: < normal limit HEART Score: 1
== END 2017-06-13 18:49 | disposition home or self-care (01) ==
LOC: ED 21:28
DX: N39.0 Urinary tract infection, site not specified (principal); K74.60 Unspecified cirrhosis of liver; R60.1 Generalized edema; K75.9 Inflammatory liver disease, unspecified; I10 Essential (primary) hypertension
CPT/HCPCS: 36415; 71275; 80048; 80053; 81001; 84484; 85025; 93005; 93010; 93970; 96374; 96375; 99285; J1940; J2270; J2405; Q9967

== ENCOUNTER 2017-07-07 06:57 | Inpatient (IN) | payer MEDICAID ==
[2017-07-07] MEDS ORDERED: NACL 0.9% 1000 ML 1,000 ML IV ONE (07:41)
[2017-07-07 08:44] LABS: Basophils % (Auto) 0.8 % (0.0-1.8); Eosinophils # (Auto) 0.3 K/mm3 (0.0-0.4); Eosinophils % (Auto) 7.8 % (0.0-4.3); Hematocrit 32.6 % (35.5-45.6); Hemoglobin 10.8 gm/dl (11.8-15.2); Lymphocytes % (Auto) 24.7 % (13.4-35.0); Mean Corpuscular HGB Conc 33 % (32-34); Mean Corpuscular Hemoglobin 30 pg (28-32); Mean Corpuscular Volume 91 fl (84-94); Monocytes # (Auto) 0.5 K/mm3 (0.0-0.8); Monocytes % (Auto) 12.2 % (0.0-7.3); Red Blood Count 3.58 M/mm3 (3.65-5.03); Red Cell Distribution Width 18.5 % (13.2-15.2)
[2017-07-07 08:55] LABS: Platelet Count 63 K/mm3 (140-440)
[2017-07-07 09:00] LABS: Alanine Aminotransferase 74 units/L (7-56); Albumin 2.2 g/dL (3.9-5); BUN/Creatinine Ratio 20; Blood Urea Nitrogen 12 mg/dL (9-20); Calcium 7.4 mg/dL (8.4-10.2); Hemolysis Index 5; Lipase 37 units/L (13-60)
[2017-07-07 09:12] LABS: INR 1.46 (0.87-1.13); Partial Thromboplastin Time 34.9 Sec. (24.2-36.6)
[2017-07-07 11:51] LABS: Bacteria,Urine 1+ /HPF (Negative); Bilirubin,Urine MOD (Negative); Blood,Urine NEG (Negative); Calcium Oxalate Crystals,Urine 1+; Color,Urine Amber (Yellow); Mucus,Urine 2+ /HPF; Nitrite,Urine NEG (Negative); Protein,Urine <15 mg/dL mg/dL (Negative)
[2017-07-07 11:57] LABS: Amphetamine Screen,Urine PRESUMPTIVE NEGATIVE; Benzodiazepines Screen,Urine PRESUMPTIVE NEGATIVE; Cannabinoid Screen,Urine PRESUMPTIVE NEGATIVE; Methadone Screen,Urine PRESUMPTIVE NEGATIVE; Opiate Screen,Urine PRESUMPTIVE NEGATIVE
[2017-07-07 12:00] LABS: Ictotest,Urine Negative (Negative)
[2017-07-07 12:18] LABS: Cocaine Screen,Urine PRESUMPTIVE POSITIVE
[2017-07-07] MEDS ORDERED: K-DUR PO ONE (17:41)
[2017-07-07 17:45] LABS: Creatine Kinase MB 4.7 ng/mL (0.0-4.0)
[2017-07-07] MEDS ORDERED: PROVENTIL IH PRN (17:50)
[2017-07-07] MEDS ORDERED: LACTULOSE PR PRN (17:53)
--- NOTE | 2017-07-07 17:59 | Emergency Department Report ---
ED General Adult HPI - General Chief complaint: GI Bleed Stated complaint: GI BLEED Time Seen by Provider: 07/07/17 16:53 Source: patient Mode of arrival: Ambulatory Limitations: No Limitations - History of Present Illness Initial comments: Patient denies any signs of GI bleeding. He states that he urinated and uses the toilet paper and saw blood admixed with urine on the toilet paper. He denies any melena. He denies throwing up any blood. He denies any blood in his stool. The patient has a history of end-stage liver disease. Apparently he is persistently abusing cocaine. He's been in [facility] several times before. He states that he has some swelling of his abdomen as severe swelling of his legs. He states he is completely out of all his medications and apparently noncompliant probably even before his last emergency department visit in June. States he has no medications at all. He has a history of hepatic encephalopathy with severe hyperammonemia when he is off his lactulose. He has been off his lactulose for weeks. He denies fever or chills. He denies any shortness of breath. He is not complaining of chest pain today. -: Gradual Location: abdomen (chronic) Radiation: non-radiation Quality: aching Consistency: intermittent Improves with: none Worsens with: none Associated Symptoms: other (chief complaint is blood in the urine) Treatments Prior to Arrival: none - Related Data Previous Rx's Medication Instructions Recorded Last Taken Type Furosemide [Lasix] 20 mg PO DAILY #30 tablet 03/21/17 Unknown Rx Lactulose [Cephulac] 20 gm PO TID #90 oral.liqd 03/21/17 Unknown Rx Lactulose [Kristalose] 200 gm MS QDAY PRN #30 packet 03/21/17 Unknown Rx Nadolol [Corgard] 20 mg PO QDAY #30 tablet 03/21/17 Unknown Rx Nitrofurantoin Macrocrystal 100 mg PO BID #10 capsule 03/21/17 Unknown Rx [Nitrofurantoin] Folic Acid [Folvite] 1 mg PO QDAY #30 tablet 04/08/17 Unknown Rx Lactulose [Cephulac] 20 gm PO Q6HR 30 Days oral.liqd 04/08/17 Unknown Rx Levofloxacin [Levaquin TAB] 500 mg PO DAILY #3 tablet 04/08/17 Unknown Rx Nadolol [Corgard] 20 mg PO QDAY #30 tablet 04/08/17 Unknown Rx Pantoprazole [Protonix TAB] 40 mg PO DAILY #30 tablet 04/08/17 Unknown Rx Rifaximin [Xifaxan] 550 mg PO BID #60 tablet 04/08/17 Unknown Rx Spironolactone [Aldactone] 25 mg PO QDAY #30 tablet 04/08/17 Unknown Rx Thiamine [Vitamin B-1] 100 mg PO QDAY #30 tablet 04/08/17 Unknown Rx Ciprofloxacin HCl [Cipro] 500 mg PO BID #14 tablet 06/13/17 Unknown Rx Furosemide [Lasix TAB] 40 mg PO QDAY #30 tablet 06/13/17 Unknown Rx traMADol [Ultram] 50 mg PO Q6HR PRN #15 tablet 06/13/17 Unknown Rx Allergies Allergy/AdvReac Type Severity Reaction Status Date / Time No Known Allergies Allergy Verified 07/07/17 17:11 ED Review of Systems ROS: Stated complaint: GI BLEED Other details as noted in HPI Constitutional: denies: chills, fever Eyes: denies: eye pain, eye discharge, vision change ENT: denies: ear pain, throat pain Respiratory: denies: cough, shortness of breath, wheezing Cardiovascular: denies: chest pain, palpitations Endocrine: no symptoms reported Gastrointestinal: abdominal pain. denies: nausea, diarrhea Genitourinary: as per HPI, hematuria. denies: urgency, dysuria Musculoskeletal: denies: back pain, joint swelling, arthralgia Skin: denies: rash, lesions Neurological: denies: headache, weakness, paresthesias Psychiatric: denies: anxiety, depression Hematological/Lymphatic: denies: easy bleeding, easy bruising ED Past Medical Hx - Past Medical History Previous Medical History?: Yes Hx Hypertension: Yes Hx Congestive Heart Failure: No Hx Diabetes: No Hx Liver Disease: Yes ("i don't know exactly what" hepatitis C) Hx HIV: No Additional medical history: Hepatic encephalopathy, thrombocytopenia - Surgical History Past Surgical History?: No - Social History Smoking Status: Never Smoker Substance Use Type: Alcohol, Cocaine - Medications Home Medications: Home Medications Medication Instructions Recorded Confirmed Last Taken Type Furosemide [Lasix] 20 mg PO DAILY #30 tablet 03/21/17 04/04/17 Unknown Rx Lactulose [Cephulac] 20 gm PO TID #90 oral.liqd 03/21/17 04/04/17 Unknown Rx Lactulose [Kristalose] 200 gm MS QDAY PRN #30 packet 03/21/17 04/04/17 Unknown Rx Nadolol [Corgard] 20 mg PO QDAY #30 tablet 03/21/17 04/04/17 Unknown Rx Nitrofurantoin Macrocrystal 100 mg PO BID #10 capsule 03/21/17 04/04/17 Unknown Rx [Nitrofurantoin] Folic Acid [Folvite] 1 mg PO QDAY #30 tablet 04/08/17 Unknown Rx Lactulose [Cephulac] 20 gm PO Q6HR 30 Days oral.liqd 04/08/17 Unknown Rx Levofloxacin [Levaquin TAB] 500 mg PO DAILY #3 tablet 04/08/17 Unknown Rx Nadolol [Corgard] 20 mg PO QDAY #30 tablet 04/08/17 Unknown Rx Pantoprazole [Protonix TAB] 40 mg PO DAILY #30 tablet 04/08/17 Unknown Rx Rifaximin [Xifaxan] 550 mg PO BID #60 tablet 04/08/17 Unknown Rx Spironolactone [Aldactone] 25 mg PO QDAY #30 tablet 04/08/17 Unknown Rx Thiamine [Vitamin B-1] 100 mg PO QDAY #30 tablet 04/08/17 Unknown Rx Ciprofloxacin HCl [Cipro] 500 mg PO BID #14 tablet 06/13/17 Unknown Rx Furosemide [Lasix TAB] 40 mg PO QDAY #30 tablet 06/13/17 Unknown Rx traMADol [Ultram] 50 mg PO Q6HR PRN #15 tablet 06/13/17 Unknown Rx ED Physical Exam - General Limitations: No Limitations General appearance: alert, in no apparent distress - Head Head exam: Present: atraumatic, normocephalic. Absent: normal inspection - Eye Eye exam: Present: normal appearance, PERRL, EOMI, scleral icterus - ENT ENT exam: Present: mucous membranes moist - Neck Neck exam: Present: normal inspection. Absent: tenderness, meningismus - Respiratory Respiratory exam: Present: normal lung sounds bilaterally. Absent: respiratory distress - Cardiovascular Cardiovascular Exam: Present: regular rate, normal rhythm. Absent: systolic murmur, diastolic murmur, rubs, gallop - GI/Abdominal GI/Abdominal exam: Present: soft, normal bowel sounds, other (likely the patient has some ascites there is a slight palpable fluid wave. However the abdomen is not tense.). Absent: distended, tenderness (no significant tenderness found on palpation), guarding, rebound, rigid - Rectal Rectal exam: Present: deferred - Extremities Exam Extremities exam: Present: other (4+ leg edema bilaterally) - Back Exam Back exam: Present: normal inspection - Neurological Exam Neurological exam: Present: alert, oriented X3, CN II-XII intact. Absent: motor sensory deficit - Psychiatric Psychiatric exam: Present: normal mood, flat affect - Skin Skin exam: Present: warm, dry, intact, normal color. Absent: rash ED Course Vital Signs 07/07/17 07/07/17 07:37 17:16 Temperature 98.3 F Pulse Rate 77 77 Respiratory 16 16 Rate Blood Pressure 118/86 Blood Pressure 144/70 [Left] O2 Sat by Pulse 97 97 Oximetry - Reevaluation(s) Reevaluation #1: Normal saline was ordered per nursing staff by protocol. Patient apparently has tolerated his fluids. Chest x-ray shows perhaps some venous congestion however. CK, BNP is pending. Ammonia is pending. Patient is noncompliant and abusing cocaine. Hyperammonemia is likely. The patient has anasarca and does need diuresis. He has moderately severe thrombocytopenia with hematuria. A urine culture has been sent. He is referred to Dr. Hatfield of the hospitalist service for further care and evaluation. I have begun to replete his potassium. He is also hypomagnesemic. He was given 2 g IV piggyback. The patient was given ceftriaxone and a urine culture was sent. 07/07/17 18:07 ED Medical Decision Making - Lab Data Result diagrams: 07/07/17 08:16 07/07/17 08:16 Laboratory Results - last 24 hr 07/07/17 07/07/17 07/07/17 08:16 08:16 08:16 WBC 4.1 L RBC 3.58 L Hgb 10.8 L Hct 32.6 L MCV 91 MCH 30 MCHC 33 RDW 18.5 H Plt Count 63 L Lymph % (Auto) 24.7 [place] % (Auto) 12.2 H Eos % (Auto) 7.8 H Baso % (Auto) 0.8 Lymph # 1.0 L [place] # 0.5 Eos # 0.3 Baso # 0.0 Seg Neutrophils % 54.5 Seg Neutrophils # 2.2 PT 18.5 H INR 1.46 H APTT 34.9 Sodium 142 Potassium 3.3 L Chloride 106.3 Carbon Dioxide 26 Anion Gap 13 BUN 12 Creatinine 0.6 L Estimated GFR > 60 BUN/Creatinine Ratio 20 Glucose 96 Calcium 7.4 L Magnesium Total Bilirubin 4.80 H AST 159 H ALT 74 H Alkaline Phosphatase 345 H Total Creatine Kinase CK-MB (CK-2) CK-MB (CK-2) Rel Index Troponin T Total Protein 5.7 L Albumin 2.2 L Albumin/Globulin Ratio 0.6 Lipase 37 Urine Color Urine Turbidity Urine pH Ur Specific [place] Urine Protein Urine Glucose (UA) Urine Ketones Urine Blood Urine Nitrite Urine Bilirubin Urine Ictotest Urine Urobilinogen Ur Leukocyte Esterase Urine WBC (Auto) Urine RBC (Auto) U Epithel Cells (Auto) Urine Bacteria (Auto) Calcium Oxalate Crystal Urine Mucus Urine Opiates Screen Urine Methadone Screen Ur Barbiturates Screen Ur Phencyclidine Scrn Ur Amphetamines Screen U Benzodiazepines Scrn Urine Cocaine Screen U Marijuana (THC) Screen Drugs of Abuse Note Blood Type Antibody Screen 07/07/17 07/07/17 07/07/17 08:16 09:49 09:49 WBC RBC Hgb Hct MCV MCH MCHC RDW Plt Count Lymph % (Auto) [place] % (Auto) Eos % (Auto) Baso % (Auto) Lymph # [place] # Eos # Baso # Seg Neutrophils % Seg Neutrophils # PT INR APTT Sodium Potassium Chloride Carbon Dioxide Anion Gap BUN Creatinine Estimated GFR BUN/Creatinine Ratio Glucose Calcium Magnesium Total Bilirubin AST ALT Alkaline Phosphatase Total Creatine Kinase CK-MB (CK-2) CK-MB (CK-2) Rel Index Troponin T Total Protein Albumin Albumin/Globulin Ratio Lipase Urine Color Patricia Urine Turbidity Clear Urine pH 6.0 Ur Specific [place] 1.021 Urine Protein <15 mg/dl Urine Glucose (UA) Neg Urine Ketones Neg Urine Blood Neg Urine Nitrite Neg Urine Bilirubin Mod Urine Ictotest Negative Urine Urobilinogen 4.0 Ur Leukocyte Esterase Neg Urine WBC (Auto) 4.0 Urine RBC (Auto) 11.0 U Epithel Cells (Auto) 2.0 Urine Bacteria (Auto) 1+ Calcium Oxalate Crystal 1+ Urine Mucus 2+ Urine Opiates Screen Presumptive negative Urine Methadone Screen Presumptive negative Ur Barbiturates Screen Presumptive negative Ur Phencyclidine Scrn Presumptive negative Ur Amphetamines Screen Presumptive negative U Benzodiazepines Scrn Presumptive negative Urine Cocaine Screen Presumptive positive U Marijuana (THC) Screen Presumptive negative Drugs of Abuse Note Disclamer Blood Type O POSITIVE Antibody Screen Negative 07/07/17 17:06 WBC RBC Hgb Hct MCV MCH MCHC RDW Plt Count Lymph % (Auto) [place] % (Auto) Eos % (Auto) Baso % (Auto) Lymph # [place] # Eos # Baso # Seg Neutrophils % Seg Neutrophils # PT INR APTT Sodium Potassium Chloride Carbon Dioxide Anion Gap BUN Creatinine Estimated GFR BUN/Creatinine Ratio Glucose Calcium Magnesium 1.60 L Total Bilirubin AST ALT Alkaline Phosphatase Total Creatine Kinase 454 H CK-MB (CK-2) 4.7 H CK-MB (CK-2) Rel Index 1.0 Troponin T < 0.010 Total Protein Albumin Albumin/Globulin Ratio Lipase Urine Color Urine Turbidity Urine pH Ur Specific [place] Urine Protein Urine Glucose (UA) Urine Ketones Urine Blood Urine Nitrite Urine Bilirubin Urine Ictotest Urine Urobilinogen Ur Leukocyte Esterase Urine WBC (Auto) Urine RBC (Auto) U Epithel Cells (Auto) Urine Bacteria (Auto) Calcium Oxalate Crystal Urine Mucus Urine Opiates Screen Urine Methadone Screen Ur Barbiturates Screen Ur Phencyclidine Scrn Ur Amphetamines Screen U Benzodiazepines Scrn Urine Cocaine Screen U Marijuana (THC) Screen Drugs of Abuse Note Blood Type Antibody Screen - EKG Data -: EKG Interpreted by Me EKG shows normal: sinus rhythm, axis, intervals, ST-T waves Rate: normal - EKG Data Interpretation: nonspecific ST-T wave rios, LVH - Radiology Data interpreted by me: Normal cardiac silhouette, cephalization of flow. Critical care attestation.: If time is entered above; I have spent that time in minutes in the direct care of this critically ill patient, excluding procedure time. ED Disposition Clinical Impression: Anasarca, Cocaine abuse, Thrombocytopenia, Hypokalemia, Hypomagnesemia Liver failure Qualifiers: Liver failure chronicity: chronic Hepatic coma status: without hepatic coma Qualified Code(s): K72.10 - Chronic hepatic failure without coma Cirrhosis of liver Qualifiers: Hepatic cirrhosis type: unspecified hepatic cirrhosis Ascites presence: with ascites Qualified Code(s): K74.60 - Unspecified cirrhosis of liver UTI (urinary tract infection) Qualifiers: Urinary tract infection type: site unspecified Hematuria presence: with hematuria Qualified Code(s): N39.0 - Urinary tract infection, site not specified ; R31.9 - Hematuria, unspecified; R31.9 - Hematuria, unspecified Disposition: OP ADMIT IP TO THIS HOSP Is pt being admited?: Yes Does the pt Need Aspirin: No (contraindicated secondary to thrombocytopenia) Condition: Stable Referrals: PRIMARY CARE, [Primary Care Provider] - 3-5 Days
[2017-07-07] MEDS ORDERED: ROCEPHIN/NS 1 GM/50 ML 1 GM/50 ML BAG IV ONE (18:03)
[2017-07-07] MEDS ORDERED: MAGNESIUM SULFATE 2GM/50ML 2 GM/50 ML BAG IV ONE (18:03)
--- NOTE | 2017-07-07 18:18 | XRay Report ---
FINAL REPORT EXAM: XR CHEST 1V AP HISTORY: hypertension TECHNIQUE: upright single view chest PRIORS: None. FINDINGS: Cardiac and mediastinal contours are unremarkable. No focal pulmonary infiltrate is identified. No pleural fluid collection seen. Pulmonary vasculature is unremarkable. IMPRESSION: Negative single-view chest
[2017-07-07] MEDS: CEPHULAC PO SCH (18:37)
[2017-07-07] MEDS: LEVAQUIN PO SCH (18:37)
[2017-07-07] MEDS ORDERED: cefTRIAXone 1 GM in NACL 0.9% 20 ML IV ONE (19:00)
--- NOTE | 2017-07-07 20:22 | History and Physical Report ---
History of Present Illness Date of admission: 07/07/17 17:50 Chief complaint: I feel sick History of present illness: 62 YO Male with ETOH Liver Disease, Cirrhosis, HCV, HTN, ETOH Dependence presents to ED for evaluation. Pt states that he has experienced weakness, confusion, shortness of breath, and multiple falls over the past week, with worsening confusion over the past 4 days. Pt states that he does not know where he is, and is having a hard time remembering why he came here. Pt is confused, and unable to provide detained history at time of my exam and interview. Most of the aforementioned history taken from ED staff, EMS, and medical records prior to my exam. Pt seen and evaluated in ED and found to have hepatic Encephalopathy, as well as symptoms consistent with Diastolic CHF. Pt admitted and placed on remote telemetry monitoring. Past History Past Medical History: hepatitis, hypertension, other (Cirrhosis, ) Past Surgical History: No surgical history, Other (reviewed) Social history: single, alcohol abuse. denies: smoking Family history: hypertension Medications and Allergies Allergies Allergy/AdvReac Type Severity Reaction Status Date / Time No Known Allergies Allergy Verified 07/07/17 17:11 Home Medications Medication Instructions Recorded Confirmed Last Taken Type Furosemide [Lasix] 20 mg PO DAILY #30 tablet 03/21/17 07/07/17 Unknown Rx Lactulose [Cephulac] 20 gm PO TID #90 oral.liqd 03/21/17 07/07/17 Unknown Rx Lactulose [Kristalose] 200 gm NM QDAY PRN #30 packet 03/21/17 07/07/17 Unknown Rx Nadolol [Corgard] 20 mg PO QDAY #30 tablet 03/21/17 07/07/17 Unknown Rx Nitrofurantoin Macrocrystal 100 mg PO BID #10 capsule 03/21/17 07/07/17 Unknown Rx [Nitrofurantoin] Folic Acid [Folvite] 1 mg PO QDAY #30 tablet 04/08/17 07/07/17 Unknown Rx Lactulose [Cephulac] 20 gm PO Q6HR 30 Days oral.liqd 04/08/17 07/07/17 Unknown Rx Levofloxacin [Levaquin TAB] 500 mg PO DAILY #3 tablet 04/08/17 07/07/17 Unknown Rx Nadolol [Corgard] 20 mg PO QDAY #30 tablet 04/08/17 07/07/17 Unknown Rx Pantoprazole [Protonix TAB] 40 mg PO DAILY #30 tablet 04/08/17 07/07/17 Unknown Rx Rifaximin [Xifaxan] 550 mg PO BID #60 tablet 04/08/17 07/07/17 Unknown Rx Spironolactone [Aldactone] 25 mg PO QDAY #30 tablet 04/08/17 07/07/17 Unknown Rx Thiamine [Vitamin B-1] 100 mg PO QDAY #30 tablet 04/08/17 07/07/17 Unknown Rx Ciprofloxacin HCl [Cipro] 500 mg PO BID #14 tablet 06/13/17 07/07/17 Unknown Rx Furosemide [Lasix TAB] 40 mg PO QDAY #30 tablet 06/13/17 07/07/17 Unknown Rx traMADol [Ultram] 50 mg PO Q6HR PRN #15 tablet 06/13/17 07/07/17 Unknown Rx Active Meds: Active Medications Albuterol (Proventil) 2.5 mg IH Q3HRT PRN PRN Reason: Shortness Of Breath Folic Acid (Folvite) 1 mg PO QDAY [place]AVA Lactulose (Cephulac) 20 gm PO Q6HR [facility] Last Admin: 07/07/17 18:37 Dose: 20 gm Levofloxacin (Levaquin) 500 mg PO Q24HR [facility] Last Admin: 07/07/17 18:37 Dose: 500 mg Nadolol (Corgard) 20 mg PO QDAY NAVA Pantoprazole Sodium (Protonix) 40 mg PO DAILY NAVA Rifaximin (Xifaxan) 550 mg PO BID NAVA Spironolactone (Aldactone) 25 mg PO QDAY NAVA Thiamine HCl (Vitamin B-1) 100 mg PO QDAY NAVA Tramadol HCl (Ultram) 50 mg PO Q6HR PRN PRN Reason: Pain Review of Systems ROS unobtainable: due to mental status Exam - Constitutional Vitals: Temp Pulse Resp BP Pulse Ox 98.6 F 78 20 143/66 99 07/07/17 19:30 07/07/17 19:30 07/07/17 19:30 07/07/17 19:30 07/07/17 19:30 General appearance: Present: mild distress - EENT Eyes: Present: PERRL, scleral icterus ENT: hearing intact, clear oral mucosa - Neck Neck: Present: supple, normal ROM, masses or JVD - Respiratory Respiratory effort: normal Respiratory: bilateral: diminished, rhonchi - Cardiovascular Heart Sounds: Present: S1 & S2. Absent: rub, click - Extremities Extremities: pulses symmetrical, No edema Extremity abnormal: edema Peripheral Pulses: within normal limits Results - Labs CBC & Chem 7: 07/07/17 08:16 07/07/17 08:16 Labs: Abnormal lab results 07/07/17 07/07/17 07/07/17 Range/Units 08:16 08:16 08:16 WBC 4.1 L (4.5-11.0) K/mm3 RBC 3.58 L (3.65-5.03) M/mm3 Hgb 10.8 L (11.8-15.2) gm/dl Hct 32.6 L (35.5-45.6) % RDW 18.5 H (13.2-15.2) % Plt Count 63 L (140-440) K/mm3 [place] % (Auto) 12.2 H (0.0-7.3) % Eos % (Auto) 7.8 H (0.0-4.3) % Lymph # 1.0 L (1.2-5.4) K/mm3 PT 18.5 H (12.2-14.9) Sec. INR 1.46 H (0.87-1.13) Potassium 3.3 L (3.6-5.0) mmol/L Creatinine 0.6 L (0.8-1.5) mg/dL Calcium 7.4 L (8.4-10.2) mg/dL Magnesium (1.7-2.3) mg/dL Total Bilirubin 4.80 H (0.1-1.2) mg/dL AST 159 H (5-40) units/L ALT 74 H (7-56) units/L Alkaline Phosphatase 345 H (35-129) units/L Ammonia (25-60) umol/L Total Creatine Kinase (55-170) units/L CK-MB (CK-2) (0.0-4.0) ng/mL Total Protein 5.7 L (6.3-8.2) g/dL Albumin 2.2 L (3.9-5) g/dL 07/07/17 07/07/17 Range/Units 17:06 17:06 WBC (4.5-11.0) K/mm3 RBC (3.65-5.03) M/mm3 Hgb (11.8-15.2) gm/dl Hct (35.5-45.6) % RDW (13.2-15.2) % Plt Count (140-440) K/mm3 [place] % (Auto) (0.0-7.3) % Eos % (Auto) (0.0-4.3) % Lymph # (1.2-5.4) K/mm3 PT (12.2-14.9) Sec. INR (0.87-1.13) Potassium (3.6-5.0) mmol/L Creatinine (0.8-1.5) mg/dL Calcium (8.4-10.2) mg/dL Magnesium 1.60 L (1.7-2.3) mg/dL Total Bilirubin (0.1-1.2) mg/dL AST (5-40) units/L ALT (7-56) units/L Alkaline Phosphatase (35-129) units/L Ammonia 149.0 H (25-60) umol/L Total Creatine Kinase 454 H (55-170) units/L CK-MB (CK-2) 4.7 H (0.0-4.0) ng/mL Total Protein (6.3-8.2) g/dL Albumin (3.9-5) g/dL Assessment and Plan - Patient Problems (1) Diastolic CHF Current Visit: Yes Status: Suspected Qualifiers: Congestive heart failure chronicity: acute Qualified Code(s): I50.31 - Acute diastolic (congestive) heart failure Plan to address problem: Fluid restriction, diuresis, monitor uop q shift, afterload reduction, daily weight, supplemental oxygen, monitor bp q shift, (2) Cirrhosis of liver Current Visit: Yes Status: Acute Qualifiers: Hepatic cirrhosis type: unspecified hepatic cirrhosis Ascites presence: with ascites Qualified Code(s): K74.60 - Unspecified cirrhosis of liver Plan to address problem: Serial physical exam, diuresis, supportive care, Pt continues to use ETOH, and is not a candidate for transplant. (3) Hepatic encephalopathy Current Visit: No Status: Acute Plan to address problem: lactulose, neuro checks, aspiration precautions. (4) Hyperammonemia Current Visit: No Status: Acute Plan to address problem: lactulose, repeat ammonia level, serial physical exam. (5) Cocaine dependence Current Visit: Yes Status: Acute Qualifiers: Substance use status: in withdrawal Qualified Code(s): F14.23 - Cocaine dependence with withdrawal Plan to address problem: Pt counseled, supportive care, telemetry monitoring. (6) EtOH dependence Current Visit: No Status: Chronic Qualifiers: Substance use status: uncomplicated Qualified Code(s): F10.20 - Alcohol dependence, uncomplicated Plan to address problem: thiamine, folic acid, multivitamin, supportive care (7) DVT prophylaxis Current Visit: Yes Status: Acute
[2017-07-07] MEDS ORDERED: CIPROFLOXACIN HCL 500 MG PO SCH (22:00)
[2017-07-08] MEDS: CEPHULAC PO SCH ×4 (00:50→17:26)
[2017-07-08] MEDS: XIFAXAN PO SCH ×3 (00:51→22:07)
[2017-07-08] MEDS: ULTRAM PO PRN ×3 (00:51→22:11)
[2017-07-08 07:15] LABS: Alanine Aminotransferase 64 units/L (7-56); Albumin 1.9 g/dL (3.9-5); BUN/Creatinine Ratio 23; Blood Urea Nitrogen 14 mg/dL (9-20); Calcium 7.1 mg/dL (8.4-10.2); Hemolysis Index 0
[2017-07-08] MEDS: VITAMIN B-1 PO SCH (09:52)
[2017-07-08] MEDS: PROTONIX PO SCH (09:52)
[2017-07-08] MEDS: ALDACTONE PO SCH (09:52)
[2017-07-08] MEDS: LEVAQUIN PO SCH (09:52)
[2017-07-08] MEDS: FOLVITE PO SCH (09:52)
[2017-07-08] MEDS: CORGARD PO SCH (12:00)
[2017-07-08] MEDS ORDERED: PNEUMOVAX 23 IM ONE (12:00)
[2017-07-08 12:51] LABS: Hematocrit 29.2 % (35.5-45.6); Hemoglobin 9.7 gm/dl (11.8-15.2)
--- NOTE | 2017-07-08 16:34 | Progress Note ---
Assessment and Plan Assessment and plan: Patient is a 62 YO Male with ETOH Liver Disease, Cirrhosis, HCV, HTN, ETOH Dependence presents to ED for evaluation of weakness, confusion, shortness of breath, and multiple falls over the past week, with worsening confusion over the past 4 days. Pt states that he does not know where he is, and is having a hard time remembering why he came here. Pt was confused, and unable to provide detained history at time of my exam and interview. Most of the aforementioned history taken from ED staff, EMS, and medical records prior to my exam. - Patient Problems (1) Diastolic CHF Current Visit: Yes Status: Suspected Qualifiers: Congestive heart failure chronicity: acute Qualified Code(s): I50.31 - Acute diastolic (congestive) heart failure Plan to address problem: Fluid restriction, diuresis, monitor uop q shift, afterload reduction, daily weight, supplemental oxygen, monitor bp q shift, (2) Cirrhosis of liver Current Visit: Yes Status: Acute Qualifiers: Hepatic cirrhosis type: unspecified hepatic cirrhosis Ascites presence: with ascites Qualified Code(s): K74.60 - Unspecified cirrhosis of liver Plan to address problem: Serial physical exam, diuresis, supportive care, Pt continues to use ETOH, and is not a candidate for transplant. (3) Hepatic encephalopathy Current Visit: No Status: Acute Plan to address problem: lactulose, neuro checks, aspiration precautions. (4) Hyperammonemia Current Visit: No Status: Acute Plan to address problem: lactulose, repeat ammonia level, serial physical exam. improving (5) Cocaine dependence Current Visit: Yes Status: Acute Qualifiers: Substance use status: in withdrawal Qualified Code(s): F14.23 - Cocaine dependence with withdrawal Plan to address problem: Pt counseled, supportive care, telemetry monitoring. (6) EtOH dependence Current Visit: No Status: Chronic Qualifiers: Substance use status: uncomplicated Qualified Code(s): F10.20 - Alcohol dependence, uncomplicated Plan to address problem: thiamine, folic acid, multivitamin, supportive care (7) DVT prophylaxis Current Visit: Yes Status: Acute History Interval history: Patient seen and examined requesting PT eval due to recurrent falls. otherwise reports trace edema in lower ext which is new and also mild abdominal distension Hospitalist Physical - Constitutional Vitals: Temp Pulse Resp BP Pulse Ox 98.0 F 70 22 130/70 95 07/08/17 07:46 07/08/17 09:52 07/08/17 07:46 07/08/17 09:52 07/08/17 07:46 General appearance: Present: no acute distress, mild distress, well-nourished - EENT Eyes: Present: PERRL, EOM intact - Neck Neck: Present: supple, normal ROM - Respiratory Respiratory: bilateral: CTA - Cardiovascular Rhythm: regular Heart Sounds: Present: S1 & S2. Absent: systolic murmur - Extremities Extremities: no ischemia, pulses symmetrical Extremity abnormal: edema, cyanosis, ulceration Peripheral Pulses: within normal limits - Abdominal General gastrointestinal: deferred Localized gastrointestinal: rebound: epigastric periumbilical - Integumentary Integumentary: Present: warm - Psychiatric Psychiatric: appropriate mood/affect, intact judgment & insight - Neurologic Neurologic: CNII-XII intact - Allied Health Allied health notes reviewed: nursing Results - Labs CBC & Chem 7: 07/08/17 12:08 07/08/17 06:05 Labs: Laboratory Last Values WBC 4.1 K/mm3 (4.5-11.0) L 07/07/17 08:16 RBC 3.58 M/mm3 (3.65-5.03) L 07/07/17 08:16 Hgb 9.7 gm/dl (11.8-15.2) L 07/08/17 12:08 Hct 29.2 % (35.5-45.6) L 07/08/17 12:08 MCV 91 fl (84-94) 07/07/17 08:16 MCH 30 pg (28-32) 07/07/17 08:16 MCHC 33 % (32-34) 07/07/17 08:16 RDW 18.5 % (13.2-15.2) H 07/07/17 08:16 Plt Count 63 K/mm3 (140-440) L 07/07/17 08:16 Lymph % (Auto) 24.7 % (13.4-35.0) 07/07/17 08:16 [place] % (Auto) 12.2 % (0.0-7.3) H 07/07/17 08:16 Eos % (Auto) 7.8 % (0.0-4.3) H 07/07/17 08:16 Baso % (Auto) 0.8 % (0.0-1.8) 07/07/17 08:16 Lymph # 1.0 K/mm3 (1.2-5.4) L 07/07/17 08:16 [place] # 0.5 K/mm3 (0.0-0.8) 07/07/17 08:16 Eos # 0.3 K/mm3 (0.0-0.4) 07/07/17 08:16 Baso # 0.0 K/mm3 (0.0-0.1) 07/07/17 08:16 Seg Neutrophils % 54.5 % (40.0-70.0) 07/07/17 08:16 Seg Neutrophils # 2.2 K/mm3 (1.8-7.7) 07/07/17 08:16 PT 18.5 Sec. (12.2-14.9) H 07/07/17 08:16 INR 1.46 (0.87-1.13) H 07/07/17 08:16 APTT 34.9 Sec. (24.2-36.6) 07/07/17 08:16 Sodium 139 mmol/L (137-145) 07/08/17 06:05 Potassium 3.2 mmol/L (3.6-5.0) L 07/08/17 06:05 Chloride 106.1 mmol/L (98-107) 07/08/17 06:05 Carbon Dioxide 26 mmol/L (22-30) 07/08/17 06:05 Anion Gap 10 mmol/L 07/08/17 06:05 BUN 14 mg/dL (9-20) 07/08/17 06:05 Creatinine 0.6 mg/dL (0.8-1.5) L 07/08/17 06:05 Estimated GFR > 60 ml/min 07/08/17 06:05 BUN/Creatinine Ratio 23 % 07/08/17 06:05 Glucose 88 mg/dL (75-100) 07/08/17 06:05 Calcium 7.1 mg/dL (8.4-10.2) L 07/08/17 06:05 Magnesium 1.60 mg/dL (1.7-2.3) L 07/07/17 17:06 Total Bilirubin 4.70 mg/dL (0.1-1.2) H 07/08/17 06:05 AST 133 units/L (5-40) H 07/08/17 06:05 ALT 64 units/L (7-56) H 07/08/17 06:05 Alkaline Phosphatase 305 units/L (35-129) H 07/08/17 06:05 Ammonia 112.0 umol/L (25-60) H 07/08/17 12:29 Total Creatine Kinase 454 units/L (55-170) H 07/07/17 17:06 CK-MB (CK-2) 4.7 ng/mL (0.0-4.0) H 07/07/17 17:06 CK-MB (CK-2) Rel Index 1.0 (0-4) 07/07/17 17:06 Troponin T < 0.010 ng/mL (0.00-0.029) 07/07/17 17:06 Total Protein 5.0 g/dL (6.3-8.2) L 07/08/17 06:05 Albumin 1.9 g/dL (3.9-5) L 07/08/17 06:05 Albumin/Globulin Ratio 0.6 % 07/08/17 06:05 Lipase 37 units/L (13-60) 07/07/17 08:16 Urine Color Patricia (Yellow) 07/07/17 09:49 Urine Turbidity Clear (Clear) 07/07/17 09:49 Urine pH 6.0 (5.0-7.0) 07/07/17 09:49 Ur Specific [place] 1.021 (1.003-1.030) 07/07/17 09:49 Urine Protein <15 mg/dl mg/dL (Negative) 07/07/17 09:49 Urine Glucose (UA) Neg mg/dL (Negative) 07/07/17 09:49 Urine Ketones Neg mg/dL (Negative) 07/07/17 09:49 Urine Blood Neg (Negative) 07/07/17 09:49 Urine Nitrite Neg (Negative) 07/07/17 09:49 Urine Bilirubin Mod (Negative) 07/07/17 09:49 Urine Ictotest Negative (Negative) 07/07/17 09:49 Urine Urobilinogen 4.0 mg/dL (<2.0) 07/07/17 09:49 Ur Leukocyte Esterase Neg (Negative) 07/07/17 09:49 Urine WBC (Auto) 4.0 /HPF (0.0-6.0) 07/07/17 09:49 Urine RBC (Auto) 11.0 /HPF (0.0-6.0) 07/07/17 09:49 U Epithel Cells (Auto) 2.0 /HPF (0-13.0) 07/07/17 09:49 Urine Bacteria (Auto) 1+ /HPF (Negative) 07/07/17 09:49 Calcium Oxalate Crystal 1+ 07/07/17 09:49 Urine Mucus 2+ /HPF 07/07/17 09:49 Urine Opiates Screen Presumptive negative 07/07/17 09:49 Urine Methadone Screen Presumptive negative 07/07/17 09:49 Ur Barbiturates Screen Presumptive negative 07/07/17 09:49 Ur Phencyclidine Scrn Presumptive negative 07/07/17 09:49 Ur Amphetamines Screen Presumptive negative 07/07/17 09:49 U Benzodiazepines Scrn Presumptive negative 07/07/17 09:49 Urine Cocaine Screen Presumptive positive 07/07/17 09:49 U Marijuana (THC) Screen Presumptive negative 07/07/17 09:49 Drugs of Abuse Note Disclamer 07/07/17 09:49 Blood Type O POSITIVE 07/07/17 08:16 Antibody Screen Negative 07/07/17 08:16
--- NOTE | 2017-07-08 17:18 | Ultrasound Report ---
FINAL REPORT EXAM: US ABDOMEN LIMITED HISTORY: ascities TECHNIQUE: Ultrasound abdomen to evaluate for ascites PRIORS: None. FINDINGS: Four-quadrant ultrasound obtained to evaluate for ascites. There is minimal perihepatic ascites present within the right upper quadrant no additional collections observed. IMPRESSION: Minimal ascites in the right upper quadrant
[2017-07-08] MEDS: LASIX IV SCH (17:26)
[2017-07-09] MEDS: CEPHULAC PO SCH ×3 (00:52→13:23)
[2017-07-09] MEDS ORDERED: AMBIEN PO ONE (01:13)
[2017-07-09] MEDS ORDERED: MILK OF MAGNESIA PO PRN (01:14)
[2017-07-09] MEDS: LASIX IV SCH (06:33)
[2017-07-09 08:20] LABS: Hematocrit 31.4 % (35.5-45.6); Hemoglobin 10.4 gm/dl (11.8-15.2); Mean Corpuscular HGB Conc 33 % (32-34); Mean Corpuscular Hemoglobin 31 pg (28-32); Mean Corpuscular Volume 92 fl (84-94); Red Cell Distribution Width 18.3 % (13.2-15.2)
[2017-07-09 08:22] LABS: Platelet Count 43 K/mm3 (140-440)
[2017-07-09 08:37] LABS: Alanine Aminotransferase 63 units/L (7-56); Albumin 2.2 g/dL (3.9-5); BUN/Creatinine Ratio 23; Blood Urea Nitrogen 14 mg/dL (9-20); Calcium 7.4 mg/dL (8.4-10.2); Hemolysis Index 4
[2017-07-09] MEDS: VITAMIN B-1 PO SCH (11:23)
[2017-07-09] MEDS: FOLVITE PO SCH (11:23)
[2017-07-09] MEDS: LEVAQUIN PO SCH (11:23)
[2017-07-09] MEDS: PROTONIX PO SCH (11:23)
[2017-07-09] MEDS: ALDACTONE PO SCH (11:24)
[2017-07-09] MEDS: XIFAXAN PO SCH (11:24)
[2017-07-09] MEDS: ULTRAM PO PRN (13:23)
[2017-07-09] MEDS: CORGARD PO SCH (13:23)
--- NOTE | 2017-07-09 13:29 | Discharge Summary ---
Providers - Providers Date of Admission: 07/07/17 17:50 Attending physician: VIJAY PATRICIA MD 07/08/17 16:34 Physical Therapy Evaluation and Treat [CONS] Routine Comment: Reason For Exam: DEBILITY, RECURRENT FALL Primary care physician: OPERATOR RECEPTIONIST Hospitalization Reason for admission: AMS Condition: Stable Hospital course: Patient is a 62 YO Male with ETOH Liver Disease, Cirrhosis, HCV, HTN, ETOH Dependence presents to ED for evaluation of weakness, confusion, shortness of breath, and multiple falls over the past week, with worsening confusion over the past 4 days. Pt states that he does not know where he is, and is having a hard time remembering why he came here. Pt was confused, and unable to provide detained history at time of my exam and interview. Most of the aforementioned history taken from ED staff, EMS, and medical records prior to my exam. Patient was noted to have elevated ammonia level and started back on lactulose as he has been noncompliant with his medications. His mentation did improve her symptoms are physical therapy can was provided to him. It appears that lack of adequate use of his medication compliance leads most of his medical condition initially advised me that he has a son who he'll be picked up by an go to brother's house to stay who is making a room for him but it appears this has not panned out to be discharged home. We have prescribed on his medications have also recommended continued follow-up with extensive counseling was provided on the to quit substance abuse. He did not demonstrate any worsening of his heart failure which appears more stable at this time. Following diuresis. Also recommended that the patient continues to follow with primary care for cellulitis studies of his liter of this 3-6 months. (1) acute on chronic Diastolic CHF (2) Cirrhosis of liver (3) Hepatic encephalopathy (4) Hyperammonemia (5) Cocaine dependence (6) EtOH dependence (7) hypokalemia Disposition: - TO HOME OR SELFCARE Time spent for discharge: 35 mins Core Measure Documentation - Palliative Care Palliative Care/ Comfort Measures: Not Applicable - Core Measures Any of the following diagnoses?: none - VTE Discharge Requirements Deep Vein Thrombosis/Pulmonary Embolism Present on Admission: No Exam - Physical Exam Narrative exam: VITAL SIGNS: Reviewed. GENERAL: The patient appeared well nourished and normally developed. Vital signs as documented. HEAD: No signs of head trauma. EYES: Pupils are equal. Extraocular motions intact. EARS: Hearing grossly intact. MOUTH: Oropharynx is normal. NECK: No adenopathy, no JVD. CHEST: Chest with clear breath sounds bilaterally. No wheezes, rales, or rhonchi. CARDIAC: Regular rate and rhythm. S1 and S2, without murmurs, gallops, or rubs. VASCULAR: Trace Edema. Peripheral pulses normal and equal in all extremities. ABDOMEN: Soft, without detectable tenderness. Protuberant. No rebound or guarding, and no masses palpated. Bowel Sounds normal. MUSCULOSKELETAL: Good range of motion of all major joints. Extremities without clubbing, cyanosis. trace edema. NEUROLOGIC EXAM: Alert and oriented x 3. No focal sensory or strength deficits. Speech normal. Follows commands. PSYCHIATRIC: Mood normal. SKIN: No rash or lesions. - Constitutional Vitals: Temp Pulse Resp BP Pulse Ox 98.6 F 64 20 127/67 96 07/09/17 07:21 07/09/17 07:21 07/09/17 07:21 07/09/17 07:21 07/09/17 12:35 Plan Activity: advance as tolerated, fall precautions Diet: low salt Special Instructions: restrict fluid intake to (1200cc/day), record daily weights, record daily BP diary, smoking cessation, other (must quit substance abuse) Durable Medical Equipment Needed Upon Discharge: Cane Follow up with: PRIMARY CARE, [Primary Care Provider] - 3-5 Days Forms: Accompanied Note Prescriptions: Furosemide [Lasix TAB] 40 mg PO QDAY #30 tablet Lactulose [Cephulac] 20 gm PO Q6HR 30 Days oral.liqd Nadolol [Corgard] 20 mg PO QDAY #30 tablet Pantoprazole [Protonix TAB] 40 mg PO DAILY #30 tablet Rifaximin [Xifaxan] 550 mg PO BID #60 tablet Spironolactone [Aldactone] 25 mg PO QDAY #30 tablet Thiamine [Vitamin B-1] 100 mg PO QDAY #30 tablet traMADol [Ultram 50 MG tab] 50 mg PO Q6HR PRN #15 tablet PRN Reason: Pain
[2017-07-09 15:08] VITALS: BP 127/70
== END 2017-07-09 18:00 | disposition home or self-care (01) | DRG 432 ==
LOC: ED 06:57 → 3A 17:50
PROVIDERS: ADMIT Internal Medicine; ATTEND Internal Medicine
PROC: 3E0234Z Introduction of Serum, Toxoid and Vaccine into Muscle, Percutaneous Approach (ICD-10-PCS; principal; 2017-07-08)
DX: K70.40 Alcoholic hepatic failure without coma (principal); I50.33 Acute on chronic diastolic (congestive) heart failure; I11.0 Hypertensive heart disease with heart failure; N39.0 Urinary tract infection, site not specified; F14.20 Cocaine dependence, uncomplicated; K70.31 Alcoholic cirrhosis of liver with ascites; Z23 Encounter for immunization; Z79.899 Other long term (current) drug therapy; D69.6 Thrombocytopenia, unspecified; E87.6 Hypokalemia; E83.42 Hypomagnesemia; B19.20 Unspecified viral hepatitis C without hepatic coma; Z82.49 Family history of ischemic heart disease and other diseases of the circulatory system; F10.20 Alcohol dependence, uncomplicated
CPT/HCPCS: 36415; 71045; 76705; 80053; 80307; 81001; 82140; 82550; 82553; 83690; 83735; 84484; 85014; 85018; 85025; 85027; 85610; 85730; 86850; 86900; 86901; 87086; 90732; 93005; 93010; 96374; 96375; J0696; J1940; J3475